=== PATIENT | male | born 1960 | race Caucasian/White ===

== ENCOUNTER 2022-05-28 06:09 | Inpatient (IN) ==
[2022-05-28] MEDS ORDERED: FUROSEMIDE 40 MG/4 ML VIAL IV ONE ×2 (07:02→16:46)
[2022-05-28 07:08] LABS: Basophils # (auto) 0.03 K/uL (0-0.2); Basophils % (auto) 0.4 %; Eosinophils # (auto) 0.21 K/uL (0-0.50); Eosinophils % (auto) 2.7 %; Hematocrit (blood only) 46.1 % (40.1-51.0); Hemoglobin 14.4 g/dl (14.0-18.0); Immature Granulocytes # (auto) 0.01 K/uL (0.00-0.02); Immature Granulocytes % (auto) 0.1 %; Lymphocytes # (auto) 1.04 K/uL (1.2-3.4); Lymphocytes % (auto) 13.1 %; Mean Corpuscular Hemoglobin 27.7 pg (25.0-34.0); Mean Corpuscular Hgb Conc 31.2 g/dL (32.0-36.0); Mean Corpuscular Volume 88.8 fL (80.0-100.0); Mean Platelet Volume 10.3 fL (9.4-12.4); Monocytes # (auto) 0.65 K/uL (0.24-0.82); Monocytes % (auto) 8.2 %; Neutrophils # (auto) 5.98 K/uL (1.4-6.5); Neutrophils % (auto) 75.5 %; Platelet Count 210 K/uL (130-400); RDW Coefficient of Variation 14.6 % (11.5-14.5); RDW Standard Deviation 47.2 fL (36.4-46.3); Red Blood Count 5.19 M/uL (4.63-6.08); White Blood Count 7.92 K/ul (4.8-10.8)
--- NOTE | 2022-05-28 07:27 | XRay Report ---
XR chest 1V portable HISTORY: 61 years-old Male Dyspnea acute shortness of breath COMPARISON: Chest radiograph 09/20/2008 TECHNIQUE: Portable AP view of the chest FINDINGS: Cardiac silhouette is enlarged. Pulmonary vascular congestion with reticular interstitial coarsening. No pneumothorax. Small pleural effusions with mild bibasilar consolidation. The bones appear grossly intact. IMPRESSION: 1. Cardiomegaly with pulmonary edema. 2. Small pleural effusions with mild bibasilar consolidation. ACT 112: Negative or not required by law. The above report was generated using voice recognition software. It may contain grammatical, syntax o r spelling errors. Electronically signed by: Tony Lisa M.D. 05/28/2022 7:26 AM
[2022-05-28 07:28] LABS: INR 1.1 (0.9-1.1); Partial Thromboplastin Time 26.6 Seconds (21.0-31.0); Prothrombin Time 11.3 Seconds (9.0-12.0)
[2022-05-28 07:33] LABS: Base Excess VBG 9.4 mEq/L; HCO3 VBG 36 mmol/L; Oxygen Saturation VBG 70.7 %; PCO2 VBG 57 mmHg (38-50); PO2 VBG 41 mmHg; pH VBG 7.41 (7.36-7.41)
[2022-05-28 07:47] LABS: Alanine Aminotransferase 20 U/L (7-52); Albumin Level 3.5 gm/dl (3.4-5.0); Alkaline Phosphatase 71 U/L (34-104); Anion Gap 5 (3-11); Aspartate Aminotransferase 19 U/L (13-39); BUN Creatinine Ratio 15.6 (10-20); Blood Urea Nitrogen 20 mg/dl (6-23); Calcium 8.8 mg/dl (8.5-10.1); Carbon Dioxide 32 mmol/L (21-32); Chloride 103 mmol/L (98-107); Est GFR (African American) 69.5 ml/min; Globulin 3.6 gm/dl (2.5-4.0); Glucose 183 mg/dl (70-99(Fasting)); Magnesium 1.9 mg/dl (1.7-2.4); Potassium 4.3 mmol/L (3.5-5.1); Sodium 140 mmol/L (136-145); Total Protein 7.1 gm/dl (6.0-8.3)
[2022-05-28 07:49] LABS: Troponin I High Sensitivity 18.2 pg/ml (0-20)
[2022-05-28] MEDS ORDERED: hydrALAZINE HCL 20 MG/ML VIAL IV STA (07:59)
--- NOTE | 2022-05-28 07:59 | Emergency Department Note ---
History of Present Illness General Chief complaint: Respiratory Problems Stated complaint: HAVING TROUBLE BREATHING,BOTH LEGS SWELLED Time Seen by Provider: 05/28/22 06:52 History of Present Illness 61-year-old male presents to the ED with a chief complaint of shortness of breath. The patient also reports pedal edema. He states that his progression of shortness of breath and pedal edema has been over the past months. He states that he does not see a doctor regularly and takes no medications. He states th at he does have a history of PE in the past after a surgery but currently is not on any anticoagulation or any other medications other than vitamins. He states that his shortness of breath is worse with exertion. He has also reported some increased falls recently, last fall was Friday. He denies any fevers or cough. Denies any chest pains. No other complaints at this time. Allergies Allergy/AdvReac Type Severity Reaction Status Date / Time No Known Allergies Allergy Mild Verified 05/28/22 09:32 Past Med/Surg History Medical History (Updated 05/28/22 @ 08:02 by Jose Cantrell DO) Pulmonary embolism Social History Smoking Status: Never smoker Feels Safe at Home: Yes Review of Systems A total of 10 systems reviewed and were otherwise negative Physical Exam Vital Signs Vital Signs - 24 hr 05/28/22 06:15 05/28/22 06:19 05/28/22 06:50 Temperature 36.9 C Temperature Source Temporal Artery Scan Pulse Rate 113 H Pulse Rate from SpO2 Sensor Respiratory Rate 20 Respiratory Effort / Characteristics Non-Labored Spontaneous Labored Respiratory Depth Normal Deep Blood Pressure 202/109 H Blood Pressure Mean 140 Pulse Oximetry 87 L 86 L Oxygen Delivery Method Room Air Room Air Oxygen Flow Rate 0 Sepsis Recent Fever Within 48 Hours No Sepsis New/Unexplained Change in Mental Status N/A Sepsis Action Taken by Nursing No Action Required Oxygen Flow Rate - Titration 2 Pulse Oximetry Post Tiitration 96 05/28/22 06:40 05/28/22 06:47 05/28/22 06:47 Temperature Temperature Source Pulse Rate 113 H 108 H Pulse Rate from SpO2 Sensor 113 H 109 H Respiratory Rate 38 H 35 H Respiratory Effort / Characteristics Respiratory Depth Blood Pressure 210/113 H Blood Pressure Mean 145 Pulse Oximetry 89 L 95 Oxygen Delivery Method Oxygen Flow Rate Sepsis Recent Fever Within 48 Hours Sepsis New/Unexplained Change in Mental Status Sepsis Action Taken by Nursing Oxygen Flow Rate - Titration Pulse Oximetry Post Tiitration 05/28/22 07:00 05/28/22 07:25 05/28/22 07:25 Temperature Temperature Source Pulse Rate 108 H 107 H Pulse Rate from SpO2 Sensor 108 H 107 H Respiratory Rate 27 H 28 H Respiratory Effort / Characteristics Respiratory Depth Blood Pressure 194/126 H Blood Pressure Mean 148 Pulse Oximetry 96 94 Oxygen Delivery Method Nasal Cannula Oxygen Flow Rate 3 Sepsis Recent Fever Within 48 Hours Sepsis New/Unexplained Change in Mental Status Sepsis Action Taken by Nursing Oxygen Flow Rate - Titration Pulse Oximetry Post Tiitration 05/28/22 07:34 05/28/22 08:00 05/28/22 08:00 Temperature Temperature Source Pulse Rate 114 H 103 H Pulse Rate from SpO2 Sensor 103 H Respiratory Rate 39 H 32 H Respiratory Effort / Characteristics Respiratory Depth Blood Pressure 216/131 H Blood Pressure Mean 159 Pulse Oximetry 95 Oxygen Delivery Method Oxygen Flow Rate Sepsis Recent Fever Within 48 Hours Sepsis New/Unexplained Change in Mental Status Sepsis Action Taken by Nursing Oxygen Flow Rate - Titration Pulse Oximetry Post Tiitration 05/28/22 08:38 05/28/22 08:39 05/28/22 08:39 Temperature Temperature Source Pulse Rate 106 H 106 H Pulse Rate from SpO2 Sensor 106 H 106 H Respiratory Rate 42 H 35 H Respiratory Effort / Characteristics Respiratory Depth Blood Pressure 197/113 H Blood Pressure Mean 141 Pulse Oximetry 95 96 Oxygen Delivery Method Oxygen Flow Rate Sepsis Recent Fever Within 48 Hours Sepsis New/Unexplained Change in Mental Status Sepsis Action Taken by Nursing Oxygen Flow Rate - Titration Pulse Oximetry Post Tiitration 05/28/22 08:59 05/28/22 09:00 Temperature Temperature Source Pulse Rate 106 H Pulse Rate from SpO2 Sensor 106 H Respiratory Rate 33 H Respiratory Effort / Characteristics Respiratory Depth Blood Pressure 189/109 H Blood Pressure Mean 135 Pulse Oximetry 92 Oxygen Delivery Method Oxygen Flow Rate Sepsis Recent Fever Within 48 Hours Sepsis New/Unexplained Change in Mental Status Sepsis Action Taken by Nursing Oxygen Flow Rate - Titration Pulse Oximetry Post Tiitration CONSTITUTIONAL/VITAL SIGNS: Reviewed / noted above. GENERAL: Non-toxic in appearance. INTEGUMENTARY: Warm, dry, and [place]. HEAD: Normocephalic. EYES: without scleral icterus or trauma. ENT/OROPHARYNX: clear and moist. LYMPHADENOPATHY/NECK: Is supple without lymphadenopathy or meningismus. RESPIRATORY: Clear to auscultation bilaterally with some basilar crackles. No increased work of breathing. CARDIOVASCULAR: Regular rate and rhythm. GI/ABDOMEN: Soft and nontender. No organomegaly or pulsatile mass. EXTREMITIES: Warm and well perfused. Significant pedal edema bilaterally. BACK: No CVA tenderness. NEUROLOGICAL: Intact without focal deficits. PSYCHIATRIC: normal affect. MUSCULOSKELETAL: Normally developed with good muscle tone. TRIAGE NURSING DOCUMENTATION REVIEWED. Course Administered Medications Discontinued Medications Furosemide (Furosemide 40 Mg/4 Ml Vial) 40 mg IV ONE ONE Stop: 05/28/22 07:03 Last Admin: 05/28/22 07:13 Dose: 40 mg Documented By: HS Hydralazine HCl (Hydralazine Hcl 20 Mg/Ml Vial) 10 mg IV NOW STA Stop: 05/28/22 08:00 Last Admin: 05/28/22 08:20 Dose: 10 mg Documented By: HS Ioversol (Optiray 320 125ml) 120 ml IV ONCE ONE Stop: 05/28/22 08:31 Last Admin: 05/28/22 08:30 Dose: 120 ml Documented By: MAYCOL Medical Decision Making Differential Diagnosis The differential was considered includes acute myocardial infarction, acute coronary syndrome, myocarditis, pericarditis, pericardial effusions /tamponad, esophageal perforation, pulmonary embolism, pneumonia, pneumothorax, cardiomyo yefri, congestive heart, anemia , COPD/asthma exacerbation. Medical Records Attestation: I reviewed the patient's medical records. Home Medications Current Medication List: was personally reviewed by me Laboratory Data Attestation: I reviewed the patient's lab results. Result diagrams: 05/28/22 06:45 05/28/22 06:45 Lab Results 05/28/22 05/28/22 05/28/22 Range/Units 06:45 06:45 06:45 WBC 7.92 (4.8-10.8) K/ul RBC 5.19 (4.63-6.08) M/uL Hgb 14.4 (14.0-18.0) g/dl Hct 46.1 (40.1-51.0) % MCV 88.8 (80.0-100.0) fL MCH 27.7 (25.0-34.0) pg MCHC 31.2 L (32.0-36.0) g/dL RDW Std Deviation 47.2 H (36.4-46.3) fL RDW Coeff of [place] 14.6 H (11.5-14.5) % Plt Count 210 (130-400) K/uL MPV 10.3 (9.4-12.4) fL Immature Gran % (Auto) 0.1 % Neut % (Auto) 75.5 % Lymph % (Auto) 13.1 % [place] % (Auto) 8.2 % Eos % (Auto) 2.7 % Baso % (Auto) 0.4 % Neut # (Auto) 5.98 (1.4-6.5) K/uL Lymph # (Auto) 1.04 L (1.2-3.4) K/uL [place] # (Auto) 0.65 (0.24-0.82) K/uL Eos # (Auto) 0.21 (0-0.50) K/uL Baso # (Auto) 0.03 (0-0.2) K/uL Immature Gran # (Auto) 0.01 (0.00-0.02) K/uL PT (9.0-12.0) Seconds INR (0.9-1.1) APTT (21.0-31.0) Seconds PTT Ratio VBG pH (7.36-7.41) VBG pCO2 (38-50) mmHg VBG pO2 mmHg VBG HCO3 mmol/L VBG O2 Saturation % VBG Base Excess mEq/L Sodium 140 (136-145) mmol/L Potassium 4.3 (3.5-5.1) mmol/L Chloride 103 (98-107) mmol/L Carbon Dioxide 32 (21-32) mmol/L Anion Gap 5 (3-11) BUN 20 (6-23) mg/dl Creatinine 1.28 (0.6-1.4) mg/dl Est Cr Clr Drug Dosing Not Reportable Est GFR ( Amer) 69.5 ml/min Est GFR (Non-Af Amer) 60.0 ml/min BUN/Creatinine Ratio 15.6 (10-20) Glucose 183 H (70-99(Fasting)) mg/dl Calcium 8.8 (8.5-10.1) mg/dl Magnesium 1.9 (1.7-2.4) mg/dl Total Bilirubin 1.0 (0.2-1.0) mg/dl AST 19 (13-39) U/L ALT 20 (7-52) U/L Alkaline Phosphatase 71 (34-104) U/L Troponin I High Sens 18.2 (0-20) pg/ml B-Natriuretic Peptide 376 H (0-100) pg/ml Total Protein 7.1 (6.0-8.3) gm/dl Albumin 3.5 (3.4-5.0) gm/dl Globulin 3.6 (2.5-4.0) gm/dl Albumin/Globulin Ratio 1.0 (0.9-2) SARS-CoV-2, RNA, NAAT (NEGATIVE) 05/28/22 05/28/22 05/28/22 Range/Units 06:45 07:10 07:10 WBC (4.8-10.8) K/ul RBC (4.63-6.08) M/uL Hgb (14.0-18.0) g/dl Hct (40.1-51.0) % MCV (80.0-100.0) fL MCH (25.0-34.0) pg MCHC (32.0-36.0) g/dL RDW Std Deviation (36.4-46.3) fL RDW Coeff of Golden (11.5-14.5) % Plt Count (130-400) K/uL MPV (9.4-12.4) fL Immature Gran % (Auto) % Neut % (Auto) % Lymph % (Auto) % [place] % (Auto) % Eos % (Auto) % Baso % (Auto) % Neut # (Auto) (1.4-6.5) K/uL Lymph # (Auto) (1.2-3.4) K/uL [place] # (Auto) (0.24-0.82) K/uL Eos # (Auto) (0-0.50) K/uL Baso # (Auto) (0-0.2) K/uL Immature Gran # (Auto) (0.00-0.02) K/uL PT 11.3 (9.0-12.0) Seconds INR 1.1 (0.9-1.1) APTT 26.6 (21.0-31.0) Seconds PTT Ratio 1.0 VBG pH 7.41 (7.36-7.41) VBG pCO2 57 H (38-50) mmHg VBG pO2 41 mmHg VBG HCO3 36 mmol/L VBG O2 Saturation 70.7 % VBG Base Excess 9.4 mEq/L Sodium (136-145) mmol/L Potassium (3.5-5.1) mmol/L Chloride (98-107) mmol/L Carbon Dioxide (21-32) mmol/L Anion Gap (3-11) BUN (6-23) mg/dl Creatinine (0.6-1.4) mg/dl Est Cr Clr Drug Dosing Est GFR ( Amer) ml/min Est GFR (Non-Af Amer) ml/min BUN/Creatinine Ratio (10-20) Glucose (70-99(Fasting)) mg/dl Calcium (8.5-10.1) mg/dl Magnesium (1.7-2.4) mg/dl Total Bilirubin (0.2-1.0) mg/dl AST (13-39) U/L ALT (7-52) U/L Alkaline Phosphatase (34-104) U/L Troponin I High Sens (0-20) pg/ml B-Natriuretic Peptide (0-100) pg/ml Total Protein (6.0-8.3) gm/dl Albumin (3.4-5.0) gm/dl Globulin (2.5-4.0) gm/dl Albumin/Globulin Ratio (0.9-2) SARS-CoV-2, RNA, NAAT NEGATIVE (NEGATIVE) Imaging Data Radiologist's Impression: Chest X-Ray 05/28/22 06:55 XR chest 1V portable HISTORY: 61 years-old Male Dyspnea acute shortness of breath COMPARISON: Chest radiograph 09/20/2008 TECHNIQUE: Portable AP view of the chest FINDINGS: Cardiac silhouette is enlarged. Pulmonary vascular congestion with reticular interstitial coarsening. No pneumothorax. Small pleural effusions with mild bibasilar consolidation. The bones appear grossly intact. IMPRESSION: 1. Cardiomegaly with pulmonary edema. 2. Small pleural effusions with mild bibasilar consolidation. ACT 112: Negative or not required by law. The above report was generated using voice recognition software. It may contain grammatical, syntax or spelling errors. Electronically signed by: Tony Lisa M.D. 05/28/2022 7:26 AM Chest CTA 05/28/22 07:50 CT angio chest PE protocol CLINICAL HISTORY: sob TECHNIQUE: Multidetector row helical CT of the chest was performed with angiographic protocol. Coronal and sagittal reformations were obtained. Coronal and sagittal MIPS were obtained from the axial data set and were submitted for review. Automated dose lowering techniques and/or adjustment according to patient size were utilized for this exam. CT DOSE: 1035.99 mGy.cm Comparison: Comparison is made to CT chest 09/14/2008 and chest radiograph dated 05/28/2022 FINDINGS: Lungs and pleura: Moderate bilateral pleural effusions are seen with associated atelectasis. No suspicious pulmonary nodules are seen. Heart and pericardium: There is cardiomegaly without evidence of pericardial ef fusion. Vessels: No evidence of pulmonary embolism. The pulmonary artery measures 34 mm in diameter. Mediastinum and john: Unremarkable. Chest wall and lower neck: Unremarkable. Abdomen: Unremarkable. Bones: Unremarkable. IMPRESSION: No evidence of pulmonary embolism. Moderate bilateral pleural effusions are seen with associated atelectasis. ACT 112: Negative or not required by law. Electronically signed by: Tony Wagner M.D. 05/28/2022 8:54 AM ECG Data Attestation: I personally reviewed and interpreted this ECG as follows: Additional Comments: Twelve-lead EKG: Per my interpretation shows a normal sinus rhythm rate of 110. No ST elevation. No PVCs. Normal QTC. Low voltage. MDM Narrative 61-year-old male presents with progressive shortness of breath and pedal edema that has been ongoing for the past months, steadily worsening with worsening symptoms with exertion. The patient had a pulse ox of 86% on arrival. Does not use home oxygen. Blood pressure was 202/109. Heart rate was 113. Exam reveals some basilar crackles and otherwise significant pedal edema in the legs. The patient CBC and chemistry panel was unremarkable. BNP was 376. VBG shows normal pH with a PCO2 of 57. COVID test was negative. EKG showed a sinus tach at a rate of 110. Chest x-ray suggest some pulmonary edema and congestive heart failure. CT scan of the chest did not show any evidence of PE. There is moderate bilateral pleural effusions. The patient was treated with IV Lasix initially on arrival as well as given some IV hydralazine. He was placed on oxygen to maintain saturations in the high 90s. He was on 2 L. Blood pressure did improve some. He did diurese quite a bit. He will be seen by the hospitalist. Impression & Plan Congestive heart failure, Pulmonary edema, Hypoxia, Hypertension Discharge Plan Visit Data Chief Complaint: Respiratory Problems Stated Complaint: HAVING TROUBLE BREATHING,BOTH LEGS SWELLED ED Provider: Jose Cantrell Discharge Problem: Congestive heart failure, Pulmonary edema, Hypoxia, Hypertension Patient Disposition: Being Evaluated by Hospitalist Forms Stand Alone Forms: [facility] Referrals Referrals: PCP,NO [Primary Care Provider] -
[2022-05-28] MEDS ORDERED: OPTIRAY 320 125ml IV ONE (08:30)
--- NOTE | 2022-05-28 08:56 | CT Scan Report ---
CT angio chest PE protocol CLINICAL HISTORY: sob TECHNIQUE: Multidetector row helical CT of the chest was performed with angiographic protocol. Roberts l and sagittal reformations were obtained. Coronal and sagittal MIPS were obtained from the axial betty a set and were submitted for review. Automated dose lowering techniques and/or adjustment according to patient size were utilized for this exam. CT DOSE: 1035.99 mGy.cm Comparison: Comparison is made to CT chest 09/14/2008 and chest radiograph dated 05/28/2022 FINDINGS: Lungs and pleura: Moderate bilateral pleural effusions are seen with associated atelectasis. No suspi cious pulmonary nodules are seen. Heart and pericardium: There is cardiomegaly without evidence of pericardial effusion. Vessels: No evidence of pulmonary embolism. The pulmonary artery measures 34 mm in diameter. Mediastinum and john: Unremarkable. Chest wall and lower neck: Unremarkable. Abdomen: Unremarkable. Bones: Unremarkable. IMPRESSION: No evidence of pulmonary embolism. Moderate bilateral pleural effusions are seen with associated atel ectasis. ACT 112: Negative or not required by law. Electronically signed by: Tony Wagner M.D. 05/28/2022 8:54 AM
--- NOTE | 2022-05-28 09:36 | History & Physical Report ---
Date of Service May 28, 2022 Assessment & Plan (1) Acute respiratory failure with hypoxia: (2) Congestive heart failure: (3) Hypertensive urgency: (4) Morbid obesity: (5) Hyperglycemia: Plan This is a 61 yr old M who has a significant PMH of PE previously on warfarin, hx of volvulus and morbid obesity who presents to ED 2/2 to SOB x few months. Acute hypoxic respiratory failure Acute decompensated heart failure Hypertensive urgency - likely in setting of uncontrolled hypertension Admit to PCU received 40mg IV lasix thus far - negative 1.5L thus far in ED continue lasix 40mg IV lasix daily consult cardiology obtain echocardiogram a1c, lipid panel, tsh/t4 will initiate daily anti hypertensive treatment with losartan 50mg daily, first dose now previously pt was on metoprolol tartrate, given tachycardia consider re introducing after acute chf improved cycle trops for completeness Hyperglycemia awaiting a1c admitting bsg > [address] on diabetic diet for now Morbid obesity consider lifestyle and diet modifications consult warehouse order picker for assistance Hx of PE/DVT ppx: SQ Lovenox Dispo: PCU PCP: none, previously followed Dr. Hurst FULL CODE Pt was seen and examined in collaboration with Dr. Arenas, please see addendum History of Present Illness Chief Complaint: SOB x few months. Primary Care Provider: NO PCP This is a 61 yr old M who has a significant PMH of PE previously on warfarin, hx of volvulus and morbid obesity who presents to ED 2/2 to SOB x few months. Of note he previously followed with [facility] PCP Dr. Hurst; however, has not followed up since 2010. He has been having worsening STARR that has been progressive over the last several months. He complains of worsening leg swelling over the last few months. He has been using OTC meds to try to help, including Aleve/ibuprofen. This didn't seem to help. He generally feels his swelling is all over including hands and abdomen. He occasionally would get a short lasting pain on left side of chest when he would exert himself. It would only last seconds and resolve on own. Nothing made better/worse. He also had occasional palpitations and feeling of, "heart racing." He denies any f/c/s, dizziness, lightheaded, syncope, URI sx, cough, hemoptysis, n/v/d, or abdominal pain. He has fallen 3 times in this past year. Last fall was 3 days ago. All 3 times he lost his balance. He denies LOC or hitting his head. He feel his legs are generally weak from the swelling. He has no known injury but did have a buttock bruise. He did not seek any medical care after falls. He states, "I'm stubborn and previously tried to heal myself." He denies hx of HTN, HLD or DM. He has hx of PE and was on warfarin. He has hx of volvulus s/p colectomy in 2008. Allergies Allergy/AdvReac Type Severity Reaction Status Date / Time small pox vaccine Allergy Severe edema Uncoded 05/28/22 10:06 Home Medications Medication Instructions Recorded Confirmed Type ascorbic acid (vitamin C) 500 mg 500 mg PO DAILY 05/28/22 05/28/22 History tablet (Vitamin C) aspirin 81 mg chewable tablet 81 mg PO DAILY 05/28/22 05/28/22 History multivitamin 1 tab PO DAILY 05/28/22 05/28/22 History Past Med/Surg History Medical History (Updated 05/28/22 @ 10:10 by Amy Trevino PA-C) Pulmonary embolism Volvulus Surgical History (Updated 05/28/22 @ 10:04 by Amy Trevino PA-C) Hx of appendectomy same time as colon resection Hx of exploratory laparotomy s/p colectomy 2008 Family History (Updated 05/28/22 @ 10:04 by Amy Trevino PA-C) Father Hx of CABG Brother Diabetes Uncle Diabetes Social History (Updated 05/28/22 @ 10:07 by Amy Trevino PA-C) Smoking Status: Never smoker Hx Alcohol Use: No Hx Substance Use: No Preferred Language: French Communication Ability: Effective marital status: Single Current Living Situation: Significant Other current occupational status: employed 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 Arenas addendum for physical exam findings Results & Data Results & Data ([facility]) Vital Signs (Past 12 Hours) Vital Signs Temp Pulse Resp BP Pulse Ox O2 Del Method O2 Flow Rate 05/28/22 09:00 189/109 H 05/28/22 08:59 106 H 33 H 92 05/28/22 08:39 106 H 35 H 96 05/28/22 08:39 197/113 H 05/28/22 08:38 106 H 42 H 95 05/28/22 08:00 103 H 32 H 95 05/28/22 08:00 216/131 H 05/28/22 07:34 114 H 39 H 05/28/22 07:25 107 H 28 H 94 05/28/22 07:25 194/126 H 05/28/22 07:00 108 H 27 H 96 Nasal Cannula 3 05/28/22 06:47 108 H 35 H 95 05/28/22 06:47 210/113 H 05/28/22 06:40 113 H 38 H 89 L 05/28/22 06:19 86 L Room Air 0 05/28/22 06:15 36.9 C 113 H 20 202/109 H 87 L Room Air Diagnostic Findings Chest X-Ray 05/28/22 06:55 XR chest 1V portable HISTORY: 61 years-old Male Dyspnea acute shortness of breath COMPARISON: Chest radiograph 09/20/2008 TECHNIQUE: Portable AP view of the chest FINDINGS: Cardiac silhouette is enlarged. Pulmonary vascular congestion with reticular interstitial coarsening. No pneumothorax. Small pleural effusions with mild bibasilar consolidation. The bones appear grossly intact. IMPRESSION: 1. Cardiomegaly with pulmonary edema. 2. Small pleural effusions with mild bibasilar consolidation. ACT 112: Negative or not required by law. The above report was generated using voice recognition software. It may contain grammatical, syntax or spelling errors. Electronically signed by: Tony Lisa M.D. 05/28/2022 7:26 AM Chest CTA 05/28/22 07:50 CT angio chest PE protocol CLINICAL HISTORY: sob TECHNIQUE: Multidetector row helical CT of the chest was performed with angiographic protocol. Coronal and sagittal reformations were obtained. Coronal and sagittal MIPS were obtained from the axial data set and were submitted for review. Automated dose lowering techniques and/or adjustment according to patient size were utilized for this exam. CT DOSE: 1035.99 mGy.cm Comparison: Comparison is made to CT chest 09/14/2008 and chest radiograph dated 05/28/2022 FINDINGS: Lungs and pleura: Moderate bilateral pleural effusions are seen with associated atelectasis. No suspicious pulmonary nodules are seen. Heart and pericardium: There is cardiomegaly without evidence of pericardial effusion. Vessels: No evidence of pulmonary embolism. The pulmonary artery measures 34 mm in diameter. Mediastinum and john: Unremarkable. Chest wall and lower neck: Unremarkable. Abdomen: Unremarkable. Bones: Unremarkable. IMPRESSION: No evidence of pulmonary embolism. Moderate bilateral pleural effusions are seen with associated atelectasis. ACT 112: Negative or not required by law. Electronically signed by: Tony Wagner M.D. 05/28/2022 8:54 AM Medications Administered Medication List Discontinued Medications Furosemide (Furosemide 40 Mg/4 Ml Vial) 40 mg IV ONE ONE Stop: 05/28/22 07:03 Last Admin: 05/28/22 07:13 Dose: 40 mg Documented By: HS Hydralazine HCl (Hydralazine Hcl 20 Mg/Ml Vial) 10 mg IV NOW STA Stop: 05/28/22 08:00 Last Admin: 05/28/22 08:20 Dose: 10 mg Documented By: HS Ioversol (Optiray 320 125ml) 120 ml IV ONCE ONE Stop: 05/28/22 08:31 Last Admin: 05/28/22 08:30 Dose: 120 ml Documented By: MAYCOL ECG Rate (beats per minute): 110 Rhythm: sinus tachycardia Additional Comments: borderline q waves noted in inferior leads COVID-19 Results Results COVID-19 Adm Lab Results: RBC 5.19 M/uL (4.63-6.08) 05/28/22 WBC 7.92 K/ul (4.8-10.8) 05/28/22 Hgb 14.4 g/dl (14.0-18.0) 05/28/22 Hct 46.1 % (40.1-51.0) 05/28/22 Plt Count 210 K/uL (130-400) 05/28/22 Neutrophils (%) (Auto) 75.5 % 05/28/22 Lymphocytes (%) (Auto) 13.1 % 05/28/22 Monocytes # (Auto) 0.65 K/uL (0.24-0.82) 05/28/22 Eosinophils # (Auto) 0.21 K/uL (0-0.50) 05/28/22 Immature Granulocyte % (Auto) 0.1 % 05/28/22 Neutrophils # (Auto) 5.98 K/uL (1.4-6.5) 05/28/22 Lymphocytes # (Auto) 1.04 K/uL (1.2-3.4) L 05/28/22 Monocytes # (Auto) 0.65 K/uL (0.24-0.82) 05/28/22 Eosinophils # (Auto) 0.21 K/uL (0-0.50) 05/28/22 Basophils # (Auto) 0.03 K/uL (0-0.2) 05/28/22 Immature Granulocyte # (Auto) 0.01 K/uL (0.00-0.02) 2 Na 140 mmol/L (136-145) 05/28/22 K 4.3 mmol/L (3.5-5.1) 05/28/22 Cl 103 mmol/L (98-107) 05/28/22 CO2 32 mmol/L (21-32) 05/28/22 Anion Gap 5 (3-11) 05/28/22 BUN 20 mg/dl (6-23) 05/28/22 Creatinine 1.28 mg/dl (0.6-1.4) 05/28/22 BUN/Creatinine Ratio 15.6 (10-20) 05/28/22 Glucose Level 183 mg/dl (70-99(Fasting)) H 05/28/22 Ca 8.8 mg/dl (8.5-10.1) 05/28/22 Total Bilirubin 1.0 mg/dl (0.2-1.0) 05/28/22 AST/SGOT 19 U/L (13-39) 05/28/22 ALT/SGPT 20 U/L (7-52) 05/28/22 Alkaline Phosphatase 71 U/L (34-104) 05/28/22 Total Protein 7.1 gm/dl (6.0-8.3) 05/28/22 Albumin 3.5 gm/dl (3.4-5.0) 05/28/22 Globulin 3.6 gm/dl (2.5-4.0) 05/28/22 Albumin/Globulin Ratio 1.0 (0.9-2) 05/28/22 PTT 26.6 Seconds (21.0-31.0) 05/28/22 INR 1.1 (0.9-1.1) 05/28/22 SARS-CoV-2, RNA, NAAT NEGATIVE (NEGATIVE) 05/28/22 Chest X-Ray 05/28/22 Code Status & VTE Plan Code Status FULL CODE VTE Prophylaxis Plan VTE Prophylaxis will be ordered: Yes Supervising Physician Co-Signing Physician Notes Pt is a 61 y/o M with hx small bowel obstruction s/p resection (2007), provoked PE (2007), HTN, HLD admitted for worsening SOB with Legs edema. PE: Obese pt, NAD, NC in place Card: normal S1/S2, no murmur Lungs: Good air entry b/l with lower lobe crackles Abd: obese abd, midline old surgical scar, low abdominal wall pitting edema, NT MSK: b/l LE severe pitting edema up to the thighs with skin changes Psych: AAOx3, normal affect A/P: Acute HF with hypoxia: -CTA chest: no PE but b/l pleural effusion -EKG: sinus tachy, decreased amplitude of the R wave, no pathological Q wave -initial Trop normal but will trend -pt is s/p Lasix 40mg IV -will obtain echo -admit tele -pt is already having good urine output -due to pts weight and severity of the edema will continue Lasix 40mg IV daily for now - daily weights and strict I/O -cards consult HTN: -pt was on metoprolol ----- have not taken it for >10 years -will start the pt on losartan 50mg daily and continue Lasix 40mg IV ---- likely add metoprolol on discharge -admit to tele -will get Lipid and A1C with AM labs Agree with A/P by Amy Trevino PA-C
[2022-05-28] MEDS ORDERED: LOSARTAN POTASSIUM 50 MG TAB PO STA (10:16)
[2022-05-28 10:35] LABS: Thyroid Stimulating Hormone 5.054 uIu/ml (0.300-4.500)
[2022-05-28 11:08] LABS: T4 Free Thyroxine 1.15 ng/dl (0.61-1.60)
[2022-05-28 11:19] LABS: Estimated Average Glucose 157 mg/dl; Hemoglobin A1C 7.1 % (4.5-5.6)
[2022-05-28] MEDS ORDERED: ONDANSETRON INJ 2 MG/ML 2 ML VIAL IV PRN (12:09)
[2022-05-28] MEDS ORDERED: POLYETHYLENE (MIRALAX) 17 GM PACK PO PRN (12:09)
[2022-05-28] MEDS ORDERED: ACETAMINOPHEN 325 MG TAB PO PRN (12:09)
[2022-05-28] MEDS ORDERED: MAGNESIUM HYDROXIDE SUSP 30 ML UDC PO PRN (12:09)
[2022-05-28] MEDS ORDERED: ALUMINUM/MAGNESIUM SUSP 30 ML UDC PO PRN (12:09)
[2022-05-28] MEDS ORDERED: GLUCAGON FOR INJ 1 MG VIAL SQ PRN (12:29)
[2022-05-28] MEDS ORDERED: DEXTROSE 50% 50 ML SYRINGE IV PRN (12:29)
[2022-05-28] MEDS ORDERED: GLUCOSE 40% GEL 15 GM TUBE PO PRN (12:29)
[2022-05-28] MEDS ORDERED: CARBOHYDRATES FOR HYPOGLYCEMIA PO PRN (12:29)
[2022-05-28] MEDS ORDERED: GLUCOSE 10 TAB/TUBE PO PRN (12:29)
--- NOTE | 2022-05-28 15:55 | Cardiology Consultation ---
Date of Consultation May 28, 2022 Assessment & Plan (1) Heart failure, diastolic, with acute decompensation: (2) Hypertensive urgency: (3) Elevated troponin I level: (4) Suspected sleep apnea: (5) Dyslipidemia, goal LDL below 70: (6) Family history of ischemic heart disease: Plan Acute decompensated diastolic congestive heart failure signs and symptoms, with hypoxia, and associated bilateral pleural effusions. - Agree with IV furosemide, 40 mg daily - Add spironolactone 12.5 mg daily - Restrict sodium to 1500 mg/day - Restrict fluids to 2000 mL/day - Monitor I's and O's, weights daily on the same standing scale, metabolic panels daily Hypertension, uncontrolled, hypertensive urgency. - IV furosemide - Losartan 50 mg/day added already - Add spironolactone as above, and carvedilol 3.125 mg twice per day. Elevated high-sensitivity troponin I. - Coronary atherosclerosis noted on the CT scan of the chest this admission. - EKG without acute changes. - Symptoms most consistent with acute decompensated diastolic heart failure. - Resting echocardiography reveals preserved LV systolic function without wall motion abnormality. - Further evaluation of the suspected obstructive coronary artery disease to transpire once compensated. Suspected sleep apnea/nocturnal hypoxemia. - Further evaluation and treatment discussed Dyslipidemia. - With the observed coronary atherosclerosis as well as the new onset type II diabetes mellitus, recommend targeting an optimal LDL cholesterol goal of less than 70 mg/deciliter. - Lipids requested. Initiation of statin therapy discussed. Further recommendations pending the above, evaluation by Dr. Coker, and patient's ongoing hospitalization. Supervising Physician Co-Signing Physician Notes Supervising Physician Attestation: I have personally performed a history and physical examination on the patient. I agree with the physician assistant analyst's findings and plan as documented with the following additions. Subjective: Patient describes worsening shortness of breath since about December of this year. Believes the last time a medical provider took his blood pressure was in 2008. Exam: At the time of my assessment, ongoing hypertension noted, repeat blood pressure 183/111 Cardiovascular difficult to hear heart sounds due to body habitus, 2-3+ bilateral lower extremity edema Lungs: Decreased breath sounds bilaterally at the bases Data: CT of the chest, left greater than right bilateral pleural effusions EKG 05/28/2022 sinus tachycardia 110 bpm, possible age-indeterminate inferior infarct Transthoracic echocardiogram. Study technically limited due to poor acoustic windows, patient characteristics but adequate for the evaluation of the referral indication There is mild concentric left-ventricular hypertrophy, LVEF 55 to 60%, moderate aortic valve calcification observed. Grade 2 diastolic dysfunction -Consider repeat study when patient better compensated from volume status standpoint for further ablation of the aortic valve, no significant aortic valve gradient detected on Doppler however 2D morphology suggest reduction aortic valve excursion Assessment and Plan: Acute decompensated diastolic heart failure Uncontrolled hypertension, likely chronic -Medication plan as documented above DVT prophylaxis: Lovenox 40 mg subcu every 24 hours Arcadio Coker, History of Present Illness Reason for Consultation: Acute CHF, new onset, uncontrolled hypertension Requesting Physician: Uriel Attending Physician: Dagoberto History of Present Illness Mr. Todd Newsome is a 61-year-old male who presented to the [facility] emergency room in the morning of May 28, 2022 due to complaints of a nonproductive cough, progressive orthopnea, exertional dyspnea, abdominal bloating, and lower extremity peripheral edema over the last few months. Occasionally feeling her heart race without rhyme or reason. No chest pain or discomfort. Blood pressure on presentation was 202/109 and has remained elevated throughout. In the emergency room the patient was evaluated by Dr. Cantrell. Patient given 40 mg of IV Lasix and 10 mg IV hydralazine with good urine output, slight improvement in dyspnea, and slight improvement in abdominal tightness. Chest x-ray revealed cardiomegaly with pulmonary edema, small pleural effusions with mild bibasilar consolidation. CT scan of the chest showed no evidence of pulmonary embolism, revealing moderate bilateral pleural effusions with associated atelectasis. Coronary atherosclerosis noted in the left coronary system. EKG revealed sinus tachycardia at 110 bpm with low voltage QRS, possible old inferior infarct, poor R wave progression. High- sensitivity troponin was initially normal at 18.2 pg/mL, rising to 50.9 pg/mL. Patient has not seen a provider in greater than 10 years. Notes hoping the body would fix itself. Prior to arrival medications include aspirin, as needed acetaminophen/ibuprofen, vitamin C, multivitamin. Past Medical and Surgical History: Hypertension Dyslipidemia Obesity History of volvulus, small bowel obstruction s/p resection Postoperative PE, anemia requiring transfusion, significant neutropenia, bacteremia Status post incidental appendectomy Status post bowel resection Family History: Father with premature CAD status post CABG x4 in his 40s. Father is present status is unknown. Mother's history is unknown. He notes multiple maternal family members with various cancers. Sister with an PR at 52. Brother and uncle with diabetes mellitus. Social History: Lifelong non-smoker, no tobacco history whatsoever. No alcohol. No illegal drug use. Moved to [facility] from [facility] in 1999. 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 , present at bedside. Complete Review of Systems: Constitutional: + Weight gain. No fevers. No chills. HEENT: Glasses. No amaurosis fugax. No recent visual changes. Pulmonary: History of PE, provoked previously treated with warfarin. Suspected sleep apnea. No history of asthma, emphysema, or COPD. Cardiac: See above. GI/Abd: No dysphagia No nausea, vomiting, or diarrhea. No significant constipation. No melena or hematochezia. No liver or kidney problems. Vascular: Denies history of claudication, AAA, or carotid artery disease. Hematologic: Status post transfusion post resection. Musculoskeletal: Tailbone pain following a prior fall. Arthritic pain. Fell in November backwards, losing his balance. No loss of consciousness. Fell in January, backwards, losing his balance, no loss of consciousness. Last fall Friday, forward, losing balance, no loss of consciousness Neurologic: No history of TIA or CVA. No history of seizure. Skin: Erythema to the lower extremities. No tick bite Male : Nocturia. Endocrine: New onset type 2 diabetes mellitus this admission. No thyroid issues. Complete review of systems is otherwise as stated above, negative, or noncontributory. Allergies Allergy/AdvReac Type Severity Reaction Status Date / Time small pox vaccine Allergy Severe edema Uncoded 05/28/22 10:06 Home Medications Medication Instructions Recorded Confirmed Type ascorbic acid (vitamin C) 500 mg 500 mg PO DAILY 05/28/22 05/28/22 History tablet (Vitamin C) aspirin 81 mg chewable tablet 81 mg PO DAILY 05/28/22 05/28/22 History multivitamin 1 tab PO DAILY 05/28/22 05/28/22 History Patient History Medical History Pulmonary embolism Volvulus Surgical History Hx of appendectomy same time as colon resection Hx of exploratory laparotomy s/p colectomy 2009 Family History Father Hx of CABG Brother Diabetes Uncle Cancer Social History Smoking Status: Former smoker Do You Dip or Chew Tobacco: No; Tobacco Cessation Education Requested by Patient: No Hx Alcohol Use: No Hx Substance Use: No Preferred Language: Monegasque Communication Ability: Effective Spool Cleaner Required: No Beliefs That Will Affect Care: None marital status: Single Current Living Situation: Spouse current occupational status: employed 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 NAD. Elevated BMI HENT: Normocephalic. Atraumatic. Eyes: PER. Conjunctiva pink, sclera clear. Neck: No carotid bruits. No overt JVD. Heart: Regular at 110 bpm. No murmur appreciated. Lungs: Absent breaths sounds, right greater than left. Left basilar rales. No wheeze. Abdomen: +BS. Somewhat firm. Nontender. No masses or organomegaly. Extremities: Hard indurated edema into the thighs. No overt cellulitis. No clubbing. No cyanosis Limited neurological examination is without focal deficits. Pulses: radial=2/4, posterior tibial and dorsalis pedis pulses not appreciated. Results & Data ([facility]) Vital Signs (Past 12 Hours) Vital Signs Temp Pulse Pulse Resp BP BP Pulse Ox 05/28/22 14:00 103 H 35 H 92 05/28/22 14:00 174/106 H 05/28/22 13:30 99 H 26 H 95 05/28/22 13:30 167/94 H 05/28/22 12:30 98 H 20 92 05/28/22 12:30 191/113 H 05/28/22 12:00 97 H 25 H 92 05/28/22 12:00 169/105 H 05/28/22 13:00 05/28/22 13:00 36.4 C L 98 H 30 H 139/110 H 95 05/28/22 12:33 05/28/22 11:30 97 H 37 H 94 05/28/22 11:30 179/108 H 05/28/22 11:00 99 H 37 H 93 05/28/22 11:00 181/108 H 05/28/22 10:30 100 H 38 H 93 05/28/22 10:30 179/106 H 05/28/22 10:13 99 H 26 H 94 05/28/22 10:13 175/106 H 05/28/22 10:02 102 H 26 H 95 05/28/22 10:02 187/107 H 05/28/22 10:00 102 H 27 H 95 05/28/22 10:00 209/132 H 05/28/22 09:30 101 H 29 H 94 05/28/22 09:30 178/108 H 05/28/22 09:00 105 H 34 H 93 05/28/22 09:00 189/109 H 05/28/22 08:59 106 H 33 H 92 05/28/22 08:39 106 H 35 H 96 05/28/22 08:39 197/113 H 05/28/22 08:38 106 H 42 H 95 05/28/22 08:00 103 H 32 H 95 05/28/22 08:00 216/131 H 05/28/22 07:34 114 H 39 H 05/28/22 07:25 107 H 28 H 94 05/28/22 07:25 194/126 H 05/28/22 07:00 108 H 27 H 96 05/28/22 06:47 108 H 35 H 95 05/28/22 06:47 210/113 H 05/28/22 06:40 113 H 38 H 89 L 05/28/22 06:19 86 L 05/28/22 06:15 36.9 C 113 H 20 202/109 H 87 L Laboratory Results Cardiac Enzymes 05/28/22 05/28/22 05/28/22 Range/Units 06:45 06:45 11:13 AST 19 (13-39) U/L Troponin I High Sens 18.2 50.9 H* D (0-20) pg/ml B-Natriuretic Peptide 376 H (0-100) pg/ml Coagulation 05/28/22 05/28/22 Range/Units 06:45 06:45 PT 11.3 (9.0-12.0) Seconds APTT 26.6 (21.0-31.0) Seconds B-Natriuretic Peptide 376 H (0-100) pg/ml CBC 05/28/22 Range/Units 06:45 WBC 7.92 (4.8-10.8) K/ul RBC 5.19 (4.63-6.08) M/uL Hgb 14.4 (14.0-18.0) g/dl Hct 46.1 (40.1-51.0) % Plt Count 210 (130-400) K/uL Neut # (Auto) 5.98 (1.4-6.5) K/uL Lymph # (Auto) 1.04 L (1.2-3.4) K/uL [place] # (Auto) 0.65 (0.24-0.82) K/uL Eos # (Auto) 0.21 (0-0.50) K/uL Baso # (Auto) 0.03 (0-0.2) K/uL Comprehensive Metabolic Panel 05/28/22 Range/Units 06:45 Sodium 140 (136-145) mmol/L Potassium 4.3 (3.5-5.1) mmol/L Chloride 103 (98-107) mmol/L Carbon Dioxide 32 (21-32) mmol/L BUN 20 (6-23) mg/dl Creatinine 1.28 (0.6-1.4) mg/dl Glucose 183 H (70-99(Fasting)) mg/dl Calcium 8.8 (8.5-10.1) mg/dl AST 19 (13-39) U/L ALT 20 (7-52) U/L Alkaline Phosphatase 71 (34-104) U/L Total Protein 7.1 (6.0-8.3) gm/dl Albumin 3.5 (3.4-5.0) gm/dl Intake and Output 05/28/22 05/28/22 05/28/22 06:59 14:59 22:59 Output Total 1300 / 1300 Balance -1300 / -1300 Output: Urine 1300 / 1300 Other: # Unmeasured Voids 2 Weight 145.1 kg Weight [facility] Weight 05/29/22 06:59 Weight 145.1 kg Diagnostic Findings CXR, Chest CT, EKG, and labs reviewed. See EMR May 28, 2022 TTE [facility]ation [facility] Technically limited but adequate for evaluation of the referral indication. Mild concentric LVH. Normal LV wall motion. Ejection fraction 55 to 60%. Aortic valve not well visualized, appearing trileaflet. Moderate focal calcification of the aortic valve. Aortic stenosis is absent. Mild mitral regurgitation. Grade 2 diastolic dysfunction. Consider repeat study when patient is better compensated from a volume standpoint, for further evaluation of aortic valve. No significant aortic valve gradient detected on Doppler, however, 2D morphology suggests reduction in AV excursion.
[2022-05-28] MEDS ORDERED: POTASSIUM CHLORIDE 10 MEQ TABCR PO ONE (16:30)
[2022-05-28] MEDS ORDERED: FUROSEMIDE INJ 20 MG/2 ML VIAL IV ONE (16:45)
[2022-05-28] MEDS: INSULIN ASPART PER UNIT SC SCH ×2 (16:58→21:57)
[2022-05-28] MEDS: carvediloL 3.125 MG TAB PO SCH (21:47)
[2022-05-28] MEDS: ENOXAPARIN INJ 40 MG/0.4 ML SYR SQ SCH (21:48)
[2022-05-29 02:56] LABS: Basophils # (auto) 0.03 K/uL (0-0.2); Basophils % (auto) 0.3 %; Eosinophils # (auto) 0.27 K/uL (0-0.50); Hematocrit (blood only) 45.6 % (40.1-51.0); Hemoglobin 14.1 g/dl (14.0-18.0); Immature Granulocytes # (auto) 0.04 K/uL (0.00-0.02); Immature Granulocytes % (auto) 0.4 %; Lymphocytes # (auto) 1.04 K/uL (1.2-3.4); Lymphocytes % (auto) 11.6 %; Mean Corpuscular Hemoglobin 27.5 pg (25.0-34.0); Mean Corpuscular Hgb Conc 30.9 g/dL (32.0-36.0); Mean Corpuscular Volume 89.1 fL (80.0-100.0); Mean Platelet Volume 9.8 fL (9.4-12.4); Monocytes # (auto) 0.78 K/uL (0.24-0.82); Monocytes % (auto) 8.7 %; Neutrophils # (auto) 6.79 K/uL (1.4-6.5); Platelet Count 190 K/uL (130-400); RDW Coefficient of Variation 14.5 % (11.5-14.5); RDW Standard Deviation 46.2 fL (36.4-46.3); Red Blood Count 5.12 M/uL (4.63-6.08); White Blood Count 8.95 K/ul (4.8-10.8)
[2022-05-29 03:20] LABS: Albumin Level 3.5 gm/dl (3.4-5.0); BUN Creatinine Ratio 16.4 (10-20); Bilirubin,Total 1.6 mg/dl (0.2-1.0); Calcium 8.7 mg/dl (8.5-10.1); Creatinine Clr Calc Pharmacy 85.6 ml/min; Est GFR (African American) 65.8 ml/min; Est GFR (Non-African American) 56.8 ml/min; Globulin 3.4 gm/dl (2.5-4.0); Magnesium 1.9 mg/dl (1.7-2.4); Potassium 4.4 mmol/L (3.5-5.1); Total Protein 6.9 gm/dl (6.0-8.3)
--- NOTE | 2022-05-29 06:01 | Electrocardiogram Report ---
Test Reason : Blood Pressure : / mmHG Vent. Rate : 110 BPM Atrial Rate : 110 BPM P-R Int : 138 ms QRS Dur : 084 ms QT Int : 328 ms P-R-T Axes : 027 065 032 degrees QTc Int : 443 ms Poor data quality, interpretation may be adversely affected Sinus tachycardia Low voltage QRS Possible Inferior infarct , age undetermined Poor R wave progression, consider anterior NM vs. lead placement vs. LVH Abnormal ECG When compared with ECG of 28-AUG-2008 21:09, QRS voltage has decreased Borderline criteria for Inferior infarct are now Present Confirmed by Tito Singleton ([id number]) on 05/29/2022 6:00:42 AM Referred By: REFERRED SELF Confirmed By:Tito Singleton
[2022-05-29] MEDS: Patient's HEIGHT &/or WEIGHT Needed SCH ×5 (07:22→10:01)
[2022-05-29] MEDS ORDERED: FUROSEMIDE 40 MG/4 ML VIAL IV SCH (09:00)
[2022-05-29] MEDS: INSULIN ASPART PER UNIT SC SCH ×4 (09:14→21:01)
[2022-05-29] MEDS: SPIRONOLACTONE 12.5 MG TAB PO SCH (09:38)
[2022-05-29] MEDS: MULTIVITAMIN TAB PO SCH (09:39)
[2022-05-29] MEDS: LOSARTAN POTASSIUM 50 MG TAB PO SCH (09:39)
[2022-05-29] MEDS: carvediloL 3.125 MG TAB PO SCH (09:40)
[2022-05-29] MEDS: ASCORBIC ACID 500 MG TAB PO SCH (09:40)
[2022-05-29] MEDS: ASPIRIN 81 MG CHEW PO SCH (09:40)
--- NOTE | 2022-05-29 09:57 | Cardiology Progress Note ---
Date of Service May 29, 2022 Assessment & Plan (1) Heart failure, diastolic, with acute decompensation: (2) Acute respiratory failure with hypoxia: (3) Hypertensive urgency: (4) Pleural effusion, bilateral: (5) Elevated troponin I level: Plan Titrate Lasix to 40 mg twice daily. Increase carvedilol to 6.25 mg twice daily. Monitor daily weight, fluid balance, and GFR. Replace electrolytes as indicated. Add topical nitrates for afterload reduction. Continue losartan and aspirin as added on admission. Further ischemic evaluation when stabilized from a heart failure perspective. All questions answered to satisfaction of both the patient and his via telephone. Admission and Anticipated Discharge Date Admission Date: May 28, 2022 Subjective Patient seen exam at the bedside. Fluid balance -2.6 L. Renal function remained stable. Blood pressure improved. Has not received a.m. dose of Lasix today. Reports continued orthopnea. Mildly improved lower extremity edema. Occasional episodes of chest discomfort noted lasting up to 5 minutes at rest. Denies any exertional chest pain or heaviness prior to admission. Notes family history of coronary disease and diabetes. Denies palpitations, lightheadedness, or dizziness. Telemetry reveals sinus rhythm with heart rate averaging 90 bpm. No dysrhythmias recorded. present via telephone during evaluation. Review of Systems Review of Systems: All systems reviewed & are unremarkable except as noted in Subjective Physical Exam Constitutional: well developed, well nourished and + obese Respiratory: Auscultation: + diminished lung sounds (Bases bilateral) and + rales (Bases bilateral); no rhonchi and no wheezes Cardiovascular: Rate/Rhythm: regular rate and regular rhythm Heart Sounds: normal S1 and normal S2; no murmur Vessels: radial pulses present; no JVD (Difficult to assess in the upright position due to body habitus.) and no carotid bruit Gastrointestinal (Abdomen): Inspection/Auscultation: normal bowel sounds; abdomen not distended Percussion/Palpation: abdomen soft; abdomen nontender, no guarding and abdomen not rigid Neurologic: CN's II-XI intact bilaterally and moves all extremities; no focal motor deficits Motor/Sensory: no tremor Psychiatric: A+Ox3, euthymic affect Results & Data ([facility]) Vital Signs (Past 12 Hours) Vital Signs Pulse Resp BP Pulse Ox O2 Del Method O2 Flow Rate 05/29/22 06:33 Nasal Cannula 4 05/29/22 05:03 95 H 21 182/116 H 94 Nasal Cannula 4 05/29/22 00:05 88 18 191/119 H 97 Nasal Cannula 4
[2022-05-29] MEDS: NITROGLYCERIN 2% OINTMENT 30GM TUBE EXT SCH ×3 (10:50→21:49)
--- NOTE | 2022-05-29 14:55 | Hospitalist Progress Note ---
Date of Service May 29, 2022 Assessment & Plan (1) Acute respiratory failure with hypoxia: (2) Congestive heart failure: (3) Hypertensive urgency: (4) Morbid obesity: (5) Hyperglycemia: Plan This is a 61 yr old M who has a significant PMH of PE previously on warfarin, hx of volvulus and morbid obesity who presents to ED 2/2 to SOB x few months. Acute hypoxic respiratory failure Acute decompensated heart failure Hypertensive urgency - likely in setting of uncontrolled hypertension Hypervolemic and still symptomatic on exam with intermittent chest pain and SOB with min exertion reported. Still requiring oxygen supplementation. -2.6L off overnight Cardiology increased Lasix to 40mg IV BID and added nitroglycerin A1C is 7.1 and he is obese. This needs to be addressed with glycemic control for new diabetes (need repeat A1C for formal diagnosis) Cont losartan and coreg at this time. Hyperglycemia awaiting repeat A1C, initial was 7.1 He is not requiring insulin coverage at this time. Cont frequent BSG checks. development educator saw him. Close PCP follow-up is recommended after discharge. Morbid obesity consider lifestyle and diet modifications which may be a challenge in setting of heart failure. consult supervisor enrobing for assistance Hx of PE/DVT ppx: SQ Lovenox Dispo: PCU, discussed wtih who was at bedside. All questions answered to her satisfaction. PCP: none, previously followed Dr. Hurst [facility] Admission and Anticipated Discharge Date Admission Date: May 28, 2022 Subjective Recheck at bedside at 2:45pm. 155/90, 165/92 Reports intermittent chest pain that is fleeting, SOB at rest this afternoon and with minimal exertion. Pt not on home oxygen typically. +orthopnea. +trace edema in lower extremities Reports some chronic swelling. He is tolerating nitro well-no headache. BP results as above. -2.6L fluid balance this am. Feeling better since yesterday but still with symptoms. at bedside and was updated on the plan. Review of Systems Review of Systems: All systems reviewed negative except as indicated above Physical Exam Physical Exam: CONSTITUTIONAL: obese, vitals as above, generally well- appearing, EYES: normal conjunctivae, no scleral icterus, ENT: external ear and nose normal, MMM NECK: trachea midline RESPIRATORY: clear to auscultation bilaterally, no crackles, rales or wheezes, normal respiratory effort CARDIOVASCULAR: regular rate and rhythm, S1 and 2 heard without murmurs, gallops or rubs, no JVD, +1 peripheral edema, CHEST: inspection of chest was normal GASTROINTESTINAL: soft, protuberant, nontender, no guarding MUSCULOSKELETAL: strength 5/5 throughout, head is normocephalic and atraumatic SKIN: warm and dry, NEUROLOGIC: CN 2-12 grossly intact, normal cognition, normal speech, no tremor, no gross focal deficits. PSYCHIATRIC: alert cooperative and oriented to person, place and time. Euthymic mood, makes good eye contact, language grossly intact, recent and remote memory grossly intact. Results & Data Results & Data ([place]) Vital Signs (Past 12 Hours) Vital Signs Temp Pulse Pulse Resp BP BP Pulse Ox 05/29/22 11:14 92 H 05/29/22 11:14 05/29/22 11:11 36.5 C 80 22 177/99 H 100 05/29/22 06:33 05/29/22 05:03 95 H 21 182/116 H 94 O2 Del Method O2 Flow Rate 05/29/22 11:14 05/29/22 11:14 Nasal Cannula 4 05/29/22 11:11 Nasal Cannula 4 05/29/22 06:33 Nasal Cannula 4 05/29/22 05:03 Nasal Cannula 4 Laboratory Results Short CBC 05/29/22 Range/Units 02:35 WBC 8.95 (4.8-10.8) K/ul Hgb 14.1 (14.0-18.0) g/dl Hct 45.6 (40.1-51.0) % Plt Count 190 (130-400) K/uL BMP 05/29/22 02:35 Sodium 139 Potassium 4.4 Chloride 99 Carbon Dioxide 36 H BUN 22 Creatinine 1.34 Glucose 138 H Calcium 8.7 Liver Function 05/29/22 Range/Units 02:35 Total Bilirubin 1.6 H D (0.2-1.0) mg/dl AST 19 (13-39) U/L ALT 18 (7-52) U/L Alkaline Phosphatase 63 (34-104) U/L Albumin 3.5 (3.4-5.0) gm/dl Medications Administered Current Inpatient Medications Acetaminophen (Acetaminophen 325 Mg Tab) 650 mg PO Q4H PRN PRN Reason: Pain or Fever Stop: 06/27/22 12:08 Al Hydrox/Mg Hydrox/Simethicone (Aluminum/Magnesium Susp 30 Ml Udc) 15 ml PO Q4H PRN PRN Reason: Dyspepsia Stop: 06/27/22 12:08 Ascorbic Acid (Ascorbic Acid 500 Mg Tab) 500 mg PO DAILY SUSANA Stop: 06/28/22 08:59 Last Admin: 05/29/22 09:40 Dose: 500 mg Aspirin (Aspirin 81 Mg Chew) 81 mg PO DAILY SUSANA Stop: 06/28/22 08:59 Last Admin: 05/29/22 09:40 Dose: 81 mg Carvedilol (Carvedilol 6.25 Mg Tab) 6.25 mg PO BID SUSANA Stop: 06/28/22 20:59 Dextrose (Dextrose 50% 50 Ml Syringe) 25 - 50 ml IV UD PRN; Protocol PRN Reason: Hypoglycemia Protocol Stop: 06/27/22 12:28 Enoxaparin Sodium (Enoxaparin Inj 40 Mg/0.4 Ml Syr) 40 mg SQ Q24H SUSANA Stop: 06/27/22 20:59 Last Admin: 05/28/22 21:48 Dose: 40 mg Furosemide (Furosemide 40 Mg/4 Ml Vial) 40 mg IV BID SUSANA Stop: 06/28/22 17:59 Last Admin: 05/29/22 16:37 Dose: 40 mg Glucagon (Glucagon For Inj 1 Mg Vial) 1 mg SQ UD PRN; Protocol PRN Reason: Hypoglycemia Protocol Stop: 06/27/22 12:28 Glucose (Glucose 10 Tab/Tube) 4 - 8 tab PO UD PRN; Protocol PRN Reason: Hypoglycemia Treatment Stop: 06/27/22 12:28 Glucose (Glucose 40% Gel 15 Gm Tube) 15 - 30 gm PO UD PRN; Protocol PRN Reason: Hypoglycemia Protocol Stop: 06/27/22 12:28 Insulin Aspart (Insulin Aspart Per Unit) 0 units SC ACHS [facility] Stop: 06/27/22 16:29 Last Admin: 05/29/22 16:51 Dose: Not Given Losartan Potassium (Losartan Potassium 50 Mg Tab) 50 mg PO QAM SUSANA Stop: 06/28/22 08:59 Last Admin: 05/29/22 09:39 Dose: 50 mg Magnesium Hydroxide (Magnesium Hydroxide Susp 30 Ml Udc) 30 ml PO Q12H PRN PRN Reason: Constipation Stop: 06/27/22 12:08 Miscellaneous (Carbohydrates For Hypoglycemia ) 15 - 30 gm PO UD PRN PRN Reason: Hypoglycemia Protocol Stop: 06/27/22 12:28 Multivitamins (Multivitamin Tab) 1 tab PO DAILY [facility] Stop: 06/28/22 08:59 Last Admin: 05/29/22 09:39 Dose: 1 tab Nitroglycerin (Nitroglycerin 2% Ointment 30gm Tube) 1 inch EXT Q6H SUSANA Stop: 06/28/22 09:59 Last Admin: 05/29/22 15:34 Dose: 1 inch Ondansetron HCl (Ondansetron Inj 2 Mg/Ml 2 Ml Vial) 4 mg IV Q6H PRN PRN Reason: Nausea Stop: 06/27/22 12:08 Polyethylene Glycol (Polyethylene (Miralax) 17 Gm Pack) 17 gm PO DAILY PRN PRN Reason: Constipation Stop: 06/27/22 12:08 Spironolactone (Spironolactone 12.5 Mg Tab) 12.5 mg PO DAILY [facility] Stop: 06/28/22 08:59 Last Admin: 05/29/22 09:38 Dose: 12.5 mg (1) Congestive heart failure Heart failure type: diastolic Heart failure chronicity: acute Qualified Code(s): I50.31 - Acute diastolic (congestive) heart failure
[2022-05-29] MEDS: FUROSEMIDE 40 MG/4 ML VIAL IV SCH ×2 (16:37→20:43)
[2022-05-29] MEDS: carvediloL 6.25 MG TAB PO SCH (20:44)
[2022-05-29] MEDS: ENOXAPARIN INJ 40 MG/0.4 ML SYR SQ SCH (20:44)
[2022-05-30] MEDS: NITROGLYCERIN 2% OINTMENT 30GM TUBE EXT SCH ×4 (04:20→22:23)
[2022-05-30 07:02] LABS: BUN Creatinine Ratio 20.6 (10-20); Calcium 8.7 mg/dl (8.5-10.1); Creatinine Clr Calc Pharmacy 91.6 ml/min; Est GFR (African American) 67.6 ml/min; Est GFR (Non-African American) 58.3 ml/min; Potassium 4.4 mmol/L (3.5-5.1)
[2022-05-30] MEDS: INSULIN ASPART PER UNIT SC SCH ×4 (07:47→20:47)
[2022-05-30] MEDS: SPIRONOLACTONE 12.5 MG TAB PO SCH (08:07)
[2022-05-30] MEDS: carvediloL 6.25 MG TAB PO SCH ×2 (08:07→20:38)
[2022-05-30] MEDS: ASCORBIC ACID 500 MG TAB PO SCH (08:07)
[2022-05-30] MEDS: FUROSEMIDE 40 MG/4 ML VIAL IV SCH ×2 (08:07→20:39)
[2022-05-30] MEDS: MULTIVITAMIN TAB PO SCH (08:07)
[2022-05-30] MEDS: LOSARTAN POTASSIUM 50 MG TAB PO SCH (08:07)
[2022-05-30] MEDS: ASPIRIN 81 MG CHEW PO SCH (08:09)
[2022-05-30 08:39] LABS: Estimated Average Glucose 154 mg/dl
[2022-05-30] MEDS ORDERED: SODIUM CHLORIDE 0.65% NA SOLN 45 ML (OCEAN) ONE (08:47)
--- NOTE | 2022-05-30 10:12 | Cardiology Progress Note ---
Date of Service May 30, 2022 Assessment & Plan (1) Heart failure, diastolic, with acute decompensation: (2) Acute respiratory failure with hypoxia: (3) Hypertensive urgency: (4) Pleural effusion, bilateral: (5) Elevated troponin I level: Plan Continue Lasix to 40 mg twice daily. Carvedilol titrated to 6.25 mg twice daily 05/29/22. Topical nitrates added for afterload reduction yesterday. Monitor daily weight, fluid balance, and GFR. Replace electrolytes as indicated. Continue losartan, aldactone, and aspirin as added on admission. Further ischemic evaluation when stabilized from a heart failure perspective (Likely Friday or Friday). All questions answered to patient's satisfaction. Admission and Anticipated Discharge Date Admission Date: May 28, 2022 Subjective Patient seen examined the bedside. Fluid balance -1.9 L. Edema improving. Oxygen requirements improved. Currently satting 100% on 3 L nasal cannula. Orthopnea unchanged. Renal function remained stable. Sinus rhythm on telemetry. Review of Systems Review of Systems: All systems reviewed & are unremarkable except as noted in Subjective Physical Exam Constitutional: well developed, well nourished and + obese Respiratory: Auscultation: + diminished lung sounds (Bases bilateral) and + rales (Bases bilateral); no rhonchi and no wheezes Cardiovascular: Rate/Rhythm: regular rate and regular rhythm Heart Sounds: normal S1 and normal S2; no murmur Vessels: radial pulses present; no JVD (Difficult to assess in the upright position due to body habitus.) and no carotid bruit Extremities: + edema (1+ bilateral pretibial edema) Gastrointestinal (Abdomen): Inspection/Auscultation: normal bowel sounds; abdomen not distended Percussion/Palpation: abdomen soft; abdomen nontender, no guarding and abdomen not rigid Neurologic: CN's II-XI intact bilaterally and moves all extremities; no focal motor deficits Motor/Sensory: no tremor Psychiatric: A+Ox3, euthymic affect Results & Data ([facility]) Vital Signs (Past 12 Hours) Vital Signs Temp Pulse Pulse Resp BP Pulse Ox O2 Del Method 05/30/22 08:00 77 05/30/22 08:00 Nasal Cannula 05/30/22 06:52 36.8 C 84 18 167/78 H 100 Nasal Cannula 05/30/22 04:10 36.6 C 86 18 121/70 90 Nasal Cannula 05/29/22 23:20 36.4 C L 84 18 163/88 H 94 O2 Flow Rate 05/30/22 08:00 05/30/22 08:00 3 05/30/22 06:52 05/30/22 04:10 7 05/29/22 23:20
[2022-05-30] MEDS: ENOXAPARIN INJ 40 MG/0.4 ML SYR SQ SCH (20:38)
--- NOTE | 2022-05-30 22:15 | Hospitalist Progress Note ---
Date of Service May 30, 2022 Assessment & Plan (1) Acute respiratory failure with hypoxia: (2) Congestive heart failure: (3) Hypertensive urgency: (4) Morbid obesity: (5) Hyperglycemia: Plan This is a 61 yr old M who has a significant PMH of PE previously on warfarin, hx of volvulus and morbid obesity who presents to ED 2/2 to SOB x few months. Acute hypoxic respiratory failure Acute decompensated heart failure Hypertensive urgency - likely in setting of uncontrolled hypertension SOB improved, chest pain has resolved. Still requiring oxygen supplementation-improved -1.7L out overnight Cont Lasix IV BID and nitro patch A1C is 7.1 and he is obese. This needs to be addressed with glycemic control for new diabetes (need repeat A1C for formal diagnosis) Cont losartan, coreg, Lasix, nitro and spironolactone. Hyperglycemia awaiting repeat A1C, initial was 7.1 He is not requiring insulin coverage at this time. Cont frequent BSG checks. extension educator saw him. Close PCP follow-up is recommended after discharge. Morbid obesity consider lifestyle and diet modifications which may be a challenge in setting of heart failure. consult buildings painter for assistance Hx of PE/DVT ppx: SQ Lovenox Dispo: PCU PCP: none, previously followed Dr. Hurst [facility] Admission and Anticipated Discharge Date Admission Date: May 28, 2022 Subjective 61 yo M admitted for acute heart failure denies chest pain less short of breath losing weight improved clinically tolerating PO Review of Systems Review of Systems: All systems reviewed negative except as indicated above Physical Exam Physical Exam: CONSTITUTIONAL: obese, vitals as above, generally well- appearing, EYES: normal conjunctivae, no scleral icterus, ENT: external ear and nose normal, MMM NECK: trachea midline RESPIRATORY: clear to auscultation bilaterally, no crackles, rales or wheezes, normal respiratory effort CARDIOVASCULAR: regular rate and rhythm, S1 and 2 heard without murmurs, gallops or rubs, no JVD, +1 peripheral edema, CHEST: inspection of chest was normal GASTROINTESTINAL: soft, protuberant, nontender, no guarding MUSCULOSKELETAL: strength 5/5 throughout, head is normocephalic and atraumatic SKIN: warm and dry, NEUROLOGIC: CN 2-12 grossly intact, normal cognition, normal speech, no tremor, no gross focal deficits. PSYCHIATRIC: alert cooperative and oriented to person, place and time. Euthymic mood, makes good eye contact, language grossly intact, recent and remote memory grossly intact. Results & Data Results & Data ([facility]) Vital Signs (Past 12 Hours) Vital Signs Temp Pulse Pulse Resp BP BP Pulse Ox 05/30/22 19:28 36.6 C 87 20 161/92 H 95 05/30/22 15:00 36.8 C 80 20 141/76 H 98 05/30/22 15:36 76 05/30/22 12:55 37.0 C 78 16 161/68 H 96 O2 Del Method O2 Flow Rate 05/30/22 19:28 Nasal Cannula 3 05/30/22 15:00 05/30/22 15:36 05/30/22 12:55 Laboratory Results BMP 05/30/22 05:32 Sodium 139 Potassium 4.4 Chloride 96 L Carbon Dioxide 39 H BUN 27 H Creatinine 1.31 Glucose 110 H Calcium 8.7 Medications Administered Current Inpatient Medications Acetaminophen (Acetaminophen 325 Mg Tab) 650 mg PO Q4H PRN PRN Reason: Pain or Fever Stop: 06/27/22 12:08 Al Hydrox/Mg Hydrox/Simethicone (Aluminum/Magnesium Susp 30 Ml Udc) 15 ml PO Q4H PRN PRN Reason: Dyspepsia Stop: 06/27/22 12:08 Ascorbic Acid (Ascorbic Acid 500 Mg Tab) 500 mg PO DAILY [facility]USANA Stop: 06/28/22 08:59 Last Admin: 05/30/22 08:07 Dose: 500 mg Aspirin (Aspirin 81 Mg Chew) 81 mg PO DAILY [facility] Stop: 06/28/22 08:59 Last Admin: 05/30/22 08:09 Dose: 81 mg Carvedilol (Carvedilol 6.25 Mg Tab) 6.25 mg PO BID [facility] Stop: 06/28/22 20:59 Last Admin: 05/30/22 20:38 Dose: 6.25 mg Dextrose (Dextrose 50% 50 Ml Syringe) 25 - 50 ml IV UD PRN; Protocol PRN Reason: Hypoglycemia Protocol Stop: 06/27/22 12:28 Enoxaparin Sodium (Enoxaparin Inj 40 Mg/0.4 Ml Syr) 40 mg SQ Q24H [facility]USANA Stop: 06/27/22 20:59 Last Admin: 05/30/22 20:38 Dose: 40 mg Furosemide (Furosemide 40 Mg/4 Ml Vial) 40 mg IV BID [facility] Stop: 06/28/22 17:59 Last Admin: 05/30/22 20:39 Dose: 40 mg Glucagon (Glucagon For Inj 1 Mg Vial) 1 mg SQ UD PRN; Protocol PRN Reason: Hypoglycemia Protocol Stop: 06/27/22 12:28 Glucose (Glucose 10 Tab/Tube) 4 - 8 tab PO UD PRN; Protocol PRN Reason: Hypoglycemia Treatment Stop: 06/27/22 12:28 Glucose (Glucose 40% Gel 15 Gm Tube) 15 - 30 gm PO UD PRN; Protocol PRN Reason: Hypoglycemia Protocol Stop: 06/27/22 12:28 Insulin Aspart (Insulin Aspart Per Unit) 0 units SC ACHS [facility] Stop: 06/27/22 16:29 Last Admin: 05/30/22 20:47 Dose: Not Given Losartan Potassium (Losartan Potassium 50 Mg Tab) 50 mg PO QAM [facility] Stop: 06/28/22 08:59 Last Admin: 05/30/22 08:07 Dose: 50 mg Magnesium Hydroxide (Magnesium Hydroxide Susp 30 Ml Udc) 30 ml PO Q12H PRN PRN Reason: Constipation Stop: 06/27/22 12:08 Miscellaneous (Carbohydrates For Hypoglycemia ) 15 - 30 gm PO UD PRN PRN Reason: Hypoglycemia Protocol Stop: 06/27/22 12:28 Multivitamins (Multivitamin Tab) 1 tab PO DAILY [facility] Stop: 06/28/22 08:59 Last Admin: 05/30/22 08:07 Dose: 1 tab Nitroglycerin (Nitroglycerin 2% Ointment 30gm Tube) 1 inch EXT Q6H [facility] Stop: 06/28/22 09:59 Last Admin: 05/30/22 16:18 Dose: 1 inch Ondansetron HCl (Ondansetron Inj 2 Mg/Ml 2 Ml Vial) 4 mg IV Q6H PRN PRN Reason: Nausea Stop: 06/27/22 12:08 Polyethylene Glycol (Polyethylene (Miralax) 17 Gm Pack) 17 gm PO DAILY PRN PRN Reason: Constipation Stop: 06/27/22 12:08 Spironolactone (Spironolactone 12.5 Mg Tab) 12.5 mg PO DAILY [facility]NA Stop: 06/28/22 08:59 Last Admin: 05/30/22 08:07 Dose: 12.5 mg (1) Congestive heart failure Heart failure chronicity: acute Heart failure type: diastolic Qualified Code(s): I50.31 - Acute diastolic (congestive) heart failure
[2022-05-31] MEDS: NITROGLYCERIN 2% OINTMENT 30GM TUBE EXT SCH ×4 (03:45→22:05)
--- NOTE | 2022-05-31 05:39 | Electrocardiogram Report ---
Test Reason : Blood Pressure : / mmHG Vent. Rate : 090 BPM Atrial Rate : 090 BPM P-R Int : 150 ms QRS Dur : 080 ms QT Int : 362 ms P-R-T Axes : 030 054 050 degrees QTc Int : 442 ms Sinus rhythm with Premature atrial complexes in a pattern of bigeminy Low voltage QRS Cannot rule out Anterior infarct , age undetermined Abnormal ECG When compared with ECG of 28-MAY-2022 06:26, Premature atrial complexes are now Present Confirmed by Tito Singleton ([id number]) on 05/31/2022 5:39:19 AM Referred By: REFERRED SELF Confirmed By:Tito Singleton
[2022-05-31] MEDS: INSULIN ASPART PER UNIT SC SCH ×4 (07:47→20:46)
[2022-05-31] MEDS: FUROSEMIDE 40 MG/4 ML VIAL IV SCH ×2 (08:28→15:43)
[2022-05-31] MEDS: MULTIVITAMIN TAB PO SCH (08:28)
[2022-05-31] MEDS: ASPIRIN 81 MG CHEW PO SCH (08:28)
[2022-05-31] MEDS: ASCORBIC ACID 500 MG TAB PO SCH (08:28)
[2022-05-31] MEDS: carvediloL 6.25 MG TAB PO SCH ×2 (08:28→20:47)
[2022-05-31] MEDS: LOSARTAN POTASSIUM 50 MG TAB PO SCH (08:28)
[2022-05-31] MEDS: SPIRONOLACTONE 12.5 MG TAB PO SCH (08:29)
[2022-05-31 08:43] LABS: BUN Creatinine Ratio 22.9 (10-20); Calcium 8.9 mg/dl (8.5-10.1); Creatinine Clr Calc Pharmacy 91.3 ml/min; Est GFR (African American) 67.6 ml/min; Est GFR (Non-African American) 58.3 ml/min; Potassium 4.1 mmol/L (3.5-5.1)
--- NOTE | 2022-05-31 10:15 | Cardiology Progress Note ---
Date of Service May 31, 2022 Assessment & Plan (1) Heart failure, diastolic, with acute decompensation: (2) Acute respiratory failure with hypoxia: (3) Hypertensive urgency: (4) Pleural effusion, bilateral: (5) Elevated troponin I level: Plan Continue Lasix to 40 mg twice daily. Titrate aldactone to 25mg daily. Monitor daily weight, fluid balance, and GFR. Replace electrolytes as indicated. Continue losartan, carvedilol, topical nitrates, and aspirin as added on a dmission. Further ischemic evaluation when stabilized from a heart failure perspective (Likely Friday or Friday). All questions answered to patient's satisfaction. Admission and Anticipated Discharge Date Admission Date: May 28, 2022 Subjective Patient seen examined the bedside. Fluid balance -2.4 L. Renal function remains stable. Blood pressure improving. Oxygen requirements improved as well. Patient able to lie nearly supine last evening. Denies chest discomfort or heaviness. No dysrhythmias on telemetry. Review of Systems Review of Systems: All systems reviewed & are unremarkable except as noted in Subjective Physical Exam Constitutional: well developed, well nourished and + obese Respiratory: Auscultation: + diminished lung sounds (Bases bilateral) and + rales (Bases bilateral); no rhonchi and no wheezes Cardiovascular: Rate/Rhythm: regular rate and regular rhythm Heart Sounds: normal S1 and normal S2; no murmur Vessels: radial pulses present; no JVD (Difficult to assess in the upright position due to body habitus.) and no carotid bruit Extremities: + edema (1+ bilateral pretibial edema) Gastrointestinal (Abdomen): Inspection/Auscultation: normal bowel sounds; abdomen not distended Percussion/Palpation: abdomen soft; abdomen nontender, no guarding and abdomen not rigid Neurologic: CN's II-XI intact bilaterally and moves all extremities; no focal motor deficits Motor/Sensory: no tremor Psychiatric: A+Ox3, euthymic affect Results & Data ([facility]) Vital Signs (Past 12 Hours) Vital Signs Temp Pulse Pulse Resp BP Pulse Ox O2 Del Method 05/31/22 08:00 76 05/31/22 08:00 Room Air 05/31/22 07:26 36.5 C 86 18 154/89 H 92 Nasal Cannula 05/31/22 02:57 36.6 C 83 18 146/83 H 94 Nasal Cannula 05/30/22 23:00 93 H 05/30/22 23:05 36.5 C 86 19 166/93 H 96 Nasal Cannula O2 Flow Rate 05/31/22 08:00 05/31/22 08:00 05/31/22 07:26 05/31/22 02:57 3 05/30/22 23:00 05/30/22 23:05 3
--- NOTE | 2022-05-31 17:25 | Hospitalist Progress Note ---
Date of Service May 31, 2022 Assessment & Plan (1) Acute respiratory failure with hypoxia: (2) Congestive heart failure: (3) Hypertensive urgency: (4) Morbid obesity: (5) Hyperglycemia: Plan This is a 61 yr old M who has a significant PMH of PE previously on warfarin, hx of volvulus and morbid obesity who presents to ED 2/2 to SOB x few months. Acute hypoxic respiratory failure Acute decompensated heart failure Hypertensive urgency - likely in setting of uncontrolled hypertension SOB improved, chest pain has resolved. Still requiring oxygen supplementation-improved 2.6L out overnight Cont Lasix IV BID and nitro patch A1C is 7.1 and he is obese. New diabetes diagnosis. Cont losartan, coreg, Lasix, nitro and spironolactone. DMII, new onset A1C x 2 over goal. He is not requiring insulin coverage at this time. Cont frequent BSG checks. staff development educator saw him. Close PCP follow-up is recommended after discharge. Morbid obesity consider lifestyle and diet modifications which may be a challenge in setting of heart failure. consult bell clerk for assistance Hx of PE/DVT ppx: SQ Lovenox Dispo: PCU PCP: none, previously followed Dr. Hurst FULL CODE Mary Redman DO [facility] Hospitalist Admission and Anticipated Discharge Date Admission Date: May 28, 2022 Subjective 61 yo M with acute decompensated heart failure Doing well today. No chest pain, breathing is improving. Fluid balance -2.6 L. +swelling in legs. Discussed TEDs/SCDs Review of Systems Review of Systems: All systems reviewed negative except as indicated above Physical Exam Physical Exam: CONSTITUTIONAL: obese, vitals as above, generally well- appearing, EYES: normal conjunctivae, no scleral icterus, ENT: external ear and nose normal, MMM NECK: trachea midline RESPIRATORY: clear to auscultation bilaterally, no crackles, rales or wheezes, normal respiratory effort CARDIOVASCULAR: regular rate and rhythm, S1 and 2 heard without murmurs, gallops or rubs, no JVD, +1 peripheral edema, CHEST: inspection of chest was normal GASTROINTESTINAL: soft, protuberant, nontender, no guarding MUSCULOSKELETAL: strength 5/5 throughout, head is normocephalic and atraumatic SKIN: warm and dry, NEUROLOGIC: CN 2-12 grossly intact, normal cognition, normal speech, no tremor, no gross focal deficits. PSYCHIATRIC: alert cooperative and oriented to person, place and time. Euthymic mood, makes good eye contact, language grossly intact, recent and remote memory grossly intact. Results & Data Results & Data ([facility]) Vital Signs (Past 12 Hours) Vital Signs Temp Pulse Pulse Resp BP Pulse Ox O2 Del Method 05/31/22 16:03 36.4 C L 80 20 152/89 H 97 Nasal Cannula 05/31/22 15:06 84 05/31/22 11:25 36.7 C 80 21 131/80 98 Nasal Cannula 05/31/22 08:00 76 05/31/22 08:00 Room Air 05/31/22 07:26 36.5 C 86 18 154/89 H 92 Nasal Cannula O2 Flow Rate 05/31/22 16:03 4 05/31/22 15:06 05/31/22 11:25 4 05/31/22 08:00 05/31/22 08:00 05/31/22 07:26 Laboratory Results BMP 05/31/22 07:40 Sodium 136 Potassium 4.1 Chloride 95 L Carbon Dioxide 38 H BUN 30 H Creatinine 1.31 Glucose 98 Calcium 8.9 Medications Administered Current Inpatient Medications Acetaminophen (Acetaminophen 325 Mg Tab) 650 mg PO Q4H PRN PRN Reason: Pain or Fever Stop: 06/27/22 12:08 Al Hydrox/Mg Hydrox/Simethicone (Aluminum/Magnesium Susp 30 Ml Udc) 15 ml PO Q4H PRN PRN Reason: Dyspepsia Stop: 06/27/22 12:08 Ascorbic Acid (Ascorbic Acid 500 Mg Tab) 500 mg PO DAILY SUSANA Stop: 06/28/22 08:59 Last Admin: 05/31/22 08:28 Dose: 500 mg Aspirin (Aspirin 81 Mg Chew) 81 mg PO DAILY SUSANA Stop: 06/28/22 08:59 Last Admin: 05/31/22 08:28 Dose: 81 mg Carvedilol (Carvedilol 6.25 Mg Tab) 6.25 mg PO BID SUSANA Stop: 06/28/22 20:59 Last Admin: 05/31/22 08:28 Dose: 6.25 mg Dextrose (Dextrose 50% 50 Ml Syringe) 25 - 50 ml IV UD PRN; Protocol PRN Reason: Hypoglycemia Protocol Stop: 06/27/22 12:28 Enoxaparin Sodium (Enoxaparin Inj 40 Mg/0.4 Ml Syr) 40 mg SQ Q24H SUSANA Stop: 06/27/22 20:59 Last Admin: 05/30/22 20:38 Dose: 40 mg Furosemide (Furosemide 40 Mg/4 Ml Vial) 40 mg IV BID@0900,1600 SUSANA Stop: 06/28/22 17:59 Last Admin: 05/31/22 15:43 Dose: 40 mg Glucagon (Glucagon For Inj 1 Mg Vial) 1 mg SQ UD PRN; Protocol PRN Reason: Hypoglycemia Protocol Stop: 06/27/22 12:28 Glucose (Glucose 10 Tab/Tube) 4 - 8 tab PO UD PRN; Protocol PRN Reason: Hypoglycemia Treatment Stop: 06/27/22 12:28 Glucose (Glucose 40% Gel 15 Gm Tube) 15 - 30 gm PO UD PRN; Protocol PRN Reason: Hypoglycemia Protocol Stop: 06/27/22 12:28 Insulin Aspart (Insulin Aspart Per Unit) 0 units SC ACHS SUSANA Stop: 06/27/22 16:29 Last Admin: 05/31/22 16:30 Dose: Not Given Losartan Potassium (Losartan Potassium 50 Mg Tab) 50 mg PO QAM SUSANA Stop: 06/28/22 08:59 Last Admin: 05/31/22 08:28 Dose: 50 mg Magnesium Hydroxide (Magnesium Hydroxide Susp 30 Ml Udc) 30 ml PO Q12H PRN PRN Reason: Constipation Stop: 06/27/22 12:08 Miscellaneous (Carbohydrates For Hypoglycemia ) 15 - 30 gm PO UD PRN PRN Reason: Hypoglycemia Protocol Stop: 06/27/22 12:28 Multivitamins (Multivitamin Tab) 1 tab PO DAILY SUSANA Stop: 06/28/22 08:59 Last Admin: 05/31/22 08:28 Dose: 1 tab Nitroglycerin (Nitroglycerin 2% Ointment 30gm Tube) 1 inch EXT Q6H SUSANA Stop: 06/28/22 09:59 Last Admin: 05/31/22 15:43 Dose: 1 inch Ondansetron HCl (Ondansetron Inj 2 Mg/Ml 2 Ml Vial) 4 mg IV Q6H PRN PRN Reason: Nausea Stop: 06/27/22 12:08 Polyethylene Glycol (Polyethylene (Miralax) 17 Gm Pack) 17 gm PO DAILY PRN PRN Reason: Constipation Stop: 06/27/22 12:08 Spironolactone (Spironolactone 25 Mg Tab) 25 mg PO DAILY SUSANA Stop: 07/01/22 08:59 (1) Congestive heart failure Heart failure chronicity: acute Heart failure type: diastolic Qualified Code(s): I50.31 - Acute diastolic (congestive) heart failure
[2022-05-31] MEDS: ENOXAPARIN INJ 40 MG/0.4 ML SYR SQ SCH (20:47)
[2022-06-01] MEDS: NITROGLYCERIN 2% OINTMENT 30GM TUBE EXT SCH ×4 (03:48→22:21)
[2022-06-01 06:36] LABS: BUN Creatinine Ratio 24.8 (10-20); Blood Urea Nitrogen 32 mg/dl (6-23); Calcium 8.9 mg/dl (8.5-10.1); Carbon Dioxide 40 mmol/L (21-32); Chloride 96 mmol/L (98-107); Creatinine Clr Calc Pharmacy 92.4 ml/min; Est GFR (African American) 68.9 ml/min; Est GFR (Non-African American) 59.4 ml/min; Glucose 98 mg/dl (70-99(Fasting))
[2022-06-01] MEDS: INSULIN ASPART PER UNIT SC SCH ×4 (07:20→20:12)
[2022-06-01 07:27] LABS: Potassium 4.3 mmol/L (3.5-5.1)
[2022-06-01] MEDS: MULTIVITAMIN TAB PO SCH (08:18)
[2022-06-01] MEDS: ASPIRIN 81 MG CHEW PO SCH (08:18)
[2022-06-01] MEDS: SPIRONOLACTONE 25 MG TAB PO SCH (08:18)
[2022-06-01] MEDS: LOSARTAN POTASSIUM 50 MG TAB PO SCH (08:18)
[2022-06-01] MEDS: carvediloL 6.25 MG TAB PO SCH ×2 (08:19→20:11)
[2022-06-01] MEDS: ASCORBIC ACID 500 MG TAB PO SCH (08:19)
[2022-06-01] MEDS: FUROSEMIDE 40 MG/4 ML VIAL IV SCH ×2 (08:19→16:59)
--- NOTE | 2022-06-01 10:10 | Cardiology Progress Note ---
Date of Service June 01, 2022 Assessment & Plan (1) Heart failure, diastolic, with acute decompensation: (2) Acute respiratory failure with hypoxia: (3) Hypertensive urgency: (4) Pleural effusion, bilateral: (5) Elevated troponin I level: Plan Continue Lasix to 40 mg twice daily. Monitor daily weight, fluid balance, and GFR. Replace electrolytes as indicated. Continue losartan, carvedilol, topical nitrates, aldactone, and aspirin as added on admission. Further ischemic evaluation when stabilized from a heart failure perspective (Likely Friday). All questions answered to patient's satisfaction. Admission and Anticipated Discharge Date Admission Date: May 28, 2022 Subjective Patient seen and examined at the bedside. Fluid balance -2.6 L. Renal function remained stable. Denies chest pain or shortness of breath at rest. Oxygen saturation 91% on 3 L. Edema improving as well. No dysrhythmias on telemetry. Review of Systems Review of Systems: All systems reviewed & are unremarkable except as noted in Subjective Physical Exam Constitutional: well developed, well nourished and + obese Respiratory: Auscultation: + diminished lung sounds (Bases bilateral) and + rales (Bases bilateral); no rhonchi and no wheezes Cardiovascular: Rate/Rhythm: regular rate and regular rhythm Heart Sounds: normal S1 and normal S2; no murmur Vessels: radial pulses present; no JVD (Difficult to assess in the upright position due to body habitus.) and no carotid bruit Extremities: + edema (1+ bilateral pretibial edema) Gastrointestinal (Abdomen): Inspection/Auscultation: normal bowel sounds; abdomen not distended Percussion/Palpation: abdomen soft; abdomen nontender, no guarding and abdomen not rigid Neurologic: CN's II-XI intact bilaterally and moves all extremities; no focal motor deficits Motor/Sensory: no tremor Psychiatric: A+Ox3, euthymic affect Results & Data ([facility]) Vital Signs (Past 12 Hours) Vital Signs Temp Pulse Pulse Resp BP BP Pulse Ox 06/01/22 09:20 06/01/22 09:19 94 H 06/01/22 07:00 36.3 C L 86 20 178/96 H 91 06/01/22 03:09 36.6 C 83 16 126/80 97 05/31/22 23:57 82 05/31/22 22:41 36.8 C 85 16 153/97 H 95 O2 Del Method O2 Flow Rate 06/01/22 09:20 Nasal Cannula 3 06/01/22 09:19 06/01/22 07:00 Nasal Cannula 06/01/22 03:09 Nasal Cannula 4.5 05/31/22 23:57 05/31/22 22:41 Nasal Cannula 3
--- NOTE | 2022-06-01 18:09 | Hospitalist Progress Note ---
Date of Service June 01, 2022 Assessment & Plan (1) Acute respiratory failure with hypoxia: (2) Congestive heart failure: (3) Hypertensive urgency: (4) Morbid obesity: (5) Hyperglycemia: Plan This is a 61 yr old M who has a significant PMH of PE previously on warfarin, hx of volvulus and morbid obesity who presents to ED 2/2 to SOB x few months. Acute hypoxic respiratory failure Acute decompensated heart failure Hypertensive urgency - likely in setting of uncontrolled hypertension SOB improved, chest pain has resolved. Still requiring oxygen supplementation-improved 3L out overnight Cont Lasix IV BID and nitro patch A1C is 7.1 and he is obese. New diabetes diagnosis. Cont losartan, coreg, Lasix, nitro and spironolactone. Plan for cardiac cath on Friday. DMII, new onset A1C x 2 over goal. He is not requiring insulin coverage at this time. Cont frequent BSG checks. staff educator saw him. Close PCP follow-up is recommended after discharge. Morbid obesity consider lifestyle and diet modifications which may be a challenge in setting of heart failure. consult hospitality host for assistance Hx of PE/DVT ppx: SQ Lovenox Dispo: PCU PCP: none, previously followed Dr. Hurst FULL CODE Mary Redman DO [facility] Hospitalist Admission and Anticipated Discharge Date Admission Date: May 28, 2022 Subjective 61 yo M with acute decompensated heart failure Doing well today. No chest pain, breathing is improving. Fluid balance -3 L overnight. Swelling improved in lower body and he is feeling better with the TEDs in place. Review of Systems Review of Systems: All systems reviewed negative except as indicated above Physical Exam Physical Exam: CONSTITUTIONAL: obese, vitals as above, generally well- appearing, EYES: normal conjunctivae, no scleral icterus, ENT: external ear and nose normal, MMM NECK: trachea midline RESPIRATORY: clear to auscultation bilaterally, no crackles, rales or wheezes, normal respiratory effort CARDIOVASCULAR: regular rate and rhythm, S1 and 2 heard without murmurs, gallops or rubs, no JVD, +1 peripheral edema, CHEST: inspection of chest was normal GASTROINTESTINAL: soft, protuberant, nontender, no guarding MUSCULOSKELETAL: strength 5/5 throughout, head is normocephalic and atraumatic SKIN: warm and dry, NEUROLOGIC: CN 2-12 grossly intact, normal cognition, normal speech, no tremor, no gross focal deficits. PSYCHIATRIC: alert cooperative and oriented to person, place and time. Eut hymic mood, makes good eye contact, language grossly intact, recent and remote memory grossly intact. Results & Data Results & Data ([facility]) Vital Signs (Past 12 Hours) Vital Signs Temp Pulse Pulse Resp BP Pulse Ox O2 Del Method 06/01/22 15:44 94 06/01/22 15:43 36.5 C 83 18 152/84 H 95 Nasal Cannula 06/01/22 11:55 36.7 C 82 20 168/82 H 98 06/01/22 09:20 Nasal Cannula 06/01/22 09:19 94 H 06/01/22 07:00 36.3 C L 86 20 178/96 H 91 Nasal Cannula O2 Flow Rate 06/01/22 15:44 06/01/22 15:43 3 06/01/22 11:55 06/01/22 09:20 3 06/01/22 09:19 06/01/22 07:00 Laboratory Results [facility] 06/01/22 06/01/22 05:21 06:51 Sodium TNP 138 Potassium TNP 4.3 Chloride 96 L Carbon Dioxide 40 H BUN 32 H Creatinine 1.29 Glucose 98 Calcium 8.9 Medications Administered Current Inpatient Medications Acetaminophen (Acetaminophen 325 Mg Tab) 650 mg PO Q4H PRN PRN Reason: Pain or Fever Stop: 06/27/22 12:08 Al Hydrox/Mg Hydrox/Simethicone (Aluminum/Magnesium Susp 30 Ml Udc) 15 ml PO Q4H PRN PRN Reason: Dyspepsia Stop: 06/27/22 12:08 Ascorbic Acid (Ascorbic Acid 500 Mg Tab) 500 mg PO DAILY SUSANA Stop: 06/28/22 08:59 Last Admin: 06/01/22 08:19 Dose: 500 mg Aspirin (Aspirin 81 Mg Chew) 81 mg PO DAILY SUSANA Stop: 06/28/22 08:59 Last Admin: 06/01/22 08:18 Dose: 81 mg Carvedilol (Carvedilol 6.25 Mg Tab) 6.25 mg PO BID SUSANA Stop: 06/28/22 20:59 Last Admin: 06/01/22 08:19 Dose: 6.25 mg Dextrose (Dextrose 50% 50 Ml Syringe) 25 - 50 ml IV UD PRN; Protocol PRN Reason: Hypoglycemia Protocol Stop: 06/27/22 12:28 Enoxaparin Sodium (Enoxaparin Inj 40 Mg/0.4 Ml Syr) 40 mg SQ Q24H SUSANA Stop: 06/27/22 20:59 Last Admin: 05/31/22 20:47 Dose: 40 mg Furosemide (Furosemide 40 Mg/4 Ml Vial) 40 mg IV BID@0900,1600 SUSANA Stop: 06/28/22 17:59 Last Admin: 06/01/22 16:59 Dose: 40 mg Glucagon (Glucagon For Inj 1 Mg Vial) 1 mg SQ UD PRN; Protocol PRN Reason: Hypoglycemia Protocol Stop: 06/27/22 12:28 Glucose (Glucose 10 Tab/Tube) 4 - 8 tab PO UD PRN; Protocol PRN Reason: Hypoglycemia Treatment Stop: 06/27/22 12:28 Glucose (Glucose 40% Gel 15 Gm Tube) 15 - 30 gm PO UD PRN; Protocol PRN Reason: Hypoglycemia Protocol Stop: 06/27/22 12:28 Insulin Aspart (Insulin Aspart Per Unit) 0 units SC ACHS SUSANA Stop: 06/27/22 16:29 Last Admin: 06/01/22 16:52 Dose: Not Given Losartan Potassium (Losartan Potassium 50 Mg Tab) 50 mg PO QAM SUSANA Stop: 06/28/22 08:59 Last Admin: 06/01/22 08:18 Dose: 50 mg Magnesium Hydroxide (Magnesium Hydroxide Susp 30 Ml Udc) 30 ml PO Q12H PRN PRN Reason: Constipation Stop: 06/27/22 12:08 Last Admin: 06/01/22 10:25 Dose: 30 ml Miscellaneous (Carbohydrates For Hypoglycemia ) 15 - 30 gm PO UD PRN PRN Reason: Hypoglycemia Protocol Stop: 06/27/22 12:28 Multivitamins (Multivitamin Tab) 1 tab PO DAILY SUSANA Stop: 06/28/22 08:59 Last Admin: 06/01/22 08:18 Dose: 1 tab Nitroglycerin (Nitroglycerin 2% Ointment 30gm Tube) 1 inch EXT Q6H SUSANA Stop: 06/28/22 09:59 Last Admin: 06/01/22 16:59 Dose: 1 inch Ondansetron HCl (Ondansetron Inj 2 Mg/Ml 2 Ml Vial) 4 mg IV Q6H PRN PRN Reason: Nausea Stop: 09/08/22 12:08 Polyethylene Glycol (Polyethylene (Miralax) 17 Gm Pack) 17 gm PO DAILY PRN PRN Reason: Constipation Stop: 06/27/22 12:08 Spironolactone (Spironolactone 25 Mg Tab) 25 mg PO DAILY SUSANA Stop: 07/01/22 08:59 Last Admin: 06/01/22 08:18 Dose: 25 mg (1) Congestive heart failure Heart failure chronicity: acute Heart failure type: diastolic Qualified Code(s): I50.31 - Acute diastolic (congestive) heart failure
[2022-06-01] MEDS: ENOXAPARIN INJ 40 MG/0.4 ML SYR SQ SCH (18:27)
[2022-06-02] MEDS: NITROGLYCERIN 2% OINTMENT 30GM TUBE EXT SCH ×2 (04:52→09:59)
[2022-06-02] MEDS: ENOXAPARIN INJ 40 MG/0.4 ML SYR SQ SCH ×2 (05:54→17:15)
[2022-06-02 06:01] LABS: BUN Creatinine Ratio 28.6 (10-20); Calcium 9.1 mg/dl (8.5-10.1); Creatinine Clr Calc Pharmacy 100.1 ml/min; Est GFR (Non-African American) 65.5 ml/min; Potassium 4.3 mmol/L (3.5-5.1)
[2022-06-02] MEDS: INSULIN ASPART PER UNIT SC SCH ×4 (07:46→20:36)
[2022-06-02] MEDS: LOSARTAN POTASSIUM 50 MG TAB PO SCH (09:58)
[2022-06-02] MEDS: ASPIRIN 81 MG CHEW PO SCH (09:58)
[2022-06-02] MEDS: ASCORBIC ACID 500 MG TAB PO SCH (09:58)
[2022-06-02] MEDS: FUROSEMIDE 40 MG/4 ML VIAL IV SCH ×2 (09:58→17:15)
[2022-06-02] MEDS: SPIRONOLACTONE 25 MG TAB PO SCH (09:58)
[2022-06-02] MEDS: MULTIVITAMIN TAB PO SCH (09:58)
[2022-06-02] MEDS: carvediloL 6.25 MG TAB PO SCH ×2 (09:59→20:17)
--- NOTE | 2022-06-02 11:27 | Cardiology Progress Note ---
Date of Service June 02, 2022 Assessment & Plan (1) Heart failure, diastolic, with acute decompensation: (2) Acute respiratory failure with hypoxia: (3) Hypertensive urgency: (4) Pleural effusion, bilateral: (5) Elevated troponin I level: Plan Continue IV Lasix today. Hold a.m. Lasix pending review of labs 06/03/2022. Monitor daily weight, fluid balance, and GFR. Replace electrolytes as indicated. Discontinue topical nitrates. Continue losartan, carvedilol, aldactone, and aspirin as added on admission. Risk, benefits, alternatives to cardiac catheterization discussed. Patient agreeable. Plan coronary angiography left heart catheterization tomorrow 06/03/2022. N.p.o. except medications after midnight.. All questions answered to patient's satisfaction. Admission and Anticipated Discharge Date Admission Date: May 28, 2022 Subjective Patient seen examined the bedside. Orthopnea improved. Edema nearly resolved. Telemetry reveals sinus rhythm. Denies chest pain or palpitations. Offers no new concerns/complaints. Review of Systems Review of Systems: All systems reviewed & are unremarkable except as noted in Subjective Physical Exam Constitutional: well developed, well nourished and + obese Respiratory: Auscultation: + diminished lung sounds (Bases bilateral) and + rales (Bases bilateral); no rhonchi and no wheezes Cardiovascular: Rate/Rhythm: regular rate and regular rhythm Heart Sounds: normal S1 and normal S2; no murmur Vessels: radial pulses present; no JVD (Difficult to assess in the upright position due to body habitus.) and no carotid bruit Extremities: + edema (1+ bilateral pretibial edema) Gastrointestinal (Abdomen): Inspection/Auscultation: normal bowel sounds; abdomen not distended Percussion/Palpation: abdomen soft; abdomen nontender, no guarding and abdomen not rigid Neurologic: CN's II-XI intact bilaterally and moves all extremities; no focal motor deficits Motor/Sensory: no tremor Psychiatric: A+Ox3, euthymic affect Results & Data ([facility]) Vital Signs (Past 12 Hours) Vital Signs Temp Pulse Resp BP Pulse Ox O2 Del Method O2 Flow Rate 06/02/22 08:18 Nasal Cannula 3 06/02/22 07:20 36.8 C 83 19 140/87 93 Nasal Cannula 3 06/02/22 03:00 36.6 C 81 16 160/92 H 95
--- NOTE | 2022-06-02 14:38 | Hospitalist Progress Note ---
Date of Service June 02, 2022 Assessment & Plan (1) Acute respiratory failure with hypoxia: (2) Congestive heart failure: (3) Hypertensive urgency: (4) Morbid obesity: (5) DMII (diabetes mellitus, type 2): Plan This is a 61 yr old M who has a significant PMH of PE previously on warfarin, hx of volvulus and morbid obesity who presents to ED 2/2 to SOB x few months. Acute hypoxic respiratory failure Acute decompensated heart failure Hypertensive urgency - likely in setting of uncontrolled hypertension SOB improved, chest pain has resolved. Still requiring oxygen supplementation-improved but will likely need oxygen at home. Will perform 2 step at time of discharge. 1.2L net out overnight (fluid) Cont Lasix IV BID and nitro patch A1C is 7.1 and he is obese. New diabetes diagnosis. Cont losartan, coreg, Lasix, nitro and spironolactone. Plan for cardiac cath on Friday. DMII, new onset A1C x 2 over goal. He is not requiring insulin coverage at this time. Cont frequent BSG checks. tank operator saw him. Close PCP follow-up is recommended after discharge. good options for hyperglycemia would be GLP-1 agonist like Trulicity, metformin or Jardiance given his heart failure. will await results of his heart cath in am and discuss more therapeutic options with him afterwards. Morbid obesity consider lifestyle and diet modifications which may be a challenge in setting of heart failure. consult computer systems architect for assistance Hx of PE/DVT ppx: SQ Lovenox Dispo: PCU PCP: none, previously followed Dr. Hurst FULL CODE Mary Redman DO [facility] Hospitalist Admission and Anticipated Discharge Date Admission Date: May 28, 2022 Subjective 61 yo M with acute decompensated heart failure Doing well today. No chest pain, breathing is improving. Fluid balance -1.2 L overnight. Swelling improved in lower body and he is feeling better with the TEDs in place. We discussed his new diagnosis of diabetes. Denies chest pain or SOB Review of Systems Review of Systems: All systems reviewed negative except as indicated above Physical Exam Physical Exam: CONSTITUTIONAL: obese, vitals as above, generally well- appearing, EYES: normal conjunctivae, no scleral icterus, ENT: external ear and nose normal, MMM NECK: trachea midline RESPIRATORY: clear to auscultation bilaterally, no crackles, rales or wheezes, normal respiratory effort CARDIOVASCULAR: regular rate and rhythm, S1 and 2 heard without murmurs, gallops or rubs, no JVD, +1 peripheral edema, CHEST: inspection of chest was normal GASTROINTESTINAL: soft, protuberant, nontender, no guarding MUSCULOSKELETAL: strength 5/5 throughout, head is normocephalic and atraumatic SKIN: warm and dry, NEUROLOGIC: CN 2-12 grossly intact, normal cognition, normal speech, no tremor, no gross focal deficits. PSYCHIATRIC: alert cooperative and oriented to person, place and time. Euthymic mood, makes good eye contact, language grossly intact, recent and remote memory grossly intact. Results & Data Results & Data ([facility]) Vital Signs (Past 12 Hours) Vital Signs Temp Pulse Resp BP Pulse Ox O2 Del Method O2 Flow Rate 06/02/22 12:11 36.6 C 81 19 149/89 H 97 Nasal Cannula 2 06/02/22 08:18 Nasal Cannula 3 06/02/22 07:20 36.8 C 83 19 140/87 93 Nasal Cannula 3 06/02/22 03:00 36.6 C 81 16 160/92 H 95 Laboratory Results [facility] 06/02/22 05:17 Sodium 137 Potassium 4.3 Chloride 97 L Carbon Dioxide 37 H BUN 34 H Creatinine 1.19 Glucose 96 Calcium 9.1 Medications Administered Current Inpatient Medications Acetaminophen (Acetaminophen 325 Mg Tab) 650 mg PO Q4H PRN PRN Reason: Pain or Fever Stop: 06/27/22 12:08 Al Hydrox/Mg Hydrox/Simethicone (Aluminum/Magnesium Susp 30 Ml Udc) 15 ml PO Q4H PRN PRN Reason: Dyspepsia Stop: 06/27/22 12:08 Ascorbic Acid (Ascorbic Acid 500 Mg Tab) 500 mg PO DAILY SUSANA Stop: 06/28/22 08:59 Last Admin: 06/02/22 09:58 Dose: 500 mg Aspirin (Aspirin 81 Mg Chew) 81 mg PO DAILY SUSANA Stop: 06/28/22 08:59 Last Admin: 06/02/22 09:58 Dose: 81 mg Carvedilol (Carvedilol 6.25 Mg Tab) 6.25 mg PO BID SUSANA Stop: 06/28/22 20:59 Last Admin: 06/02/22 09:59 Dose: 6.25 mg Dextrose (Dextrose 50% 50 Ml Syringe) 25 - 50 ml IV UD PRN; Protocol PRN Reason: Hypoglycemia Protocol Stop: 06/27/22 12:28 Enoxaparin Sodium (Enoxaparin Inj 40 Mg/0.4 Ml Syr) 40 mg SQ Q12H SUSANA Stop: 07/01/22 18:14 Last Admin: 06/02/22 05:54 Dose: 40 mg Furosemide (Furosemide 40 Mg/4 Ml Vial) 40 mg IV BID@0900,1600 SUSANA Stop: 06/28/22 17:59 Last Admin: 06/02/22 09:58 Dose: 40 mg Glucagon (Glucagon For Inj 1 Mg Vial) 1 mg SQ UD PRN; Protocol PRN Reason: Hypoglycemia Protocol Stop: 06/27/22 12:28 Glucose (Glucose 10 Tab/Tube) 4 - 8 tab PO UD PRN; Protocol PRN Reason: Hypoglycemia Treatment Stop: 06/27/22 12:28 Glucose (Glucose 40% Gel 15 Gm Tube) 15 - 30 gm PO UD PRN; Protocol PRN Reason: Hypoglycemia Protocol Stop: 06/27/22 12:28 Insulin Aspart (Insulin Aspart Per Unit) 0 units SC ACHS SUSANA Stop: 06/27/22 16:29 Last Admin: 06/02/22 11:58 Dose: Not Given Losartan Potassium (Losartan Potassium 50 Mg Tab) 50 mg PO QAM SUSANA Stop: 06/28/22 08:59 Last Admin: 06/02/22 09:58 Dose: 50 mg Magnesium Hydroxide (Magnesium Hydroxide Susp 30 Ml Udc) 30 ml PO Q12H PRN PRN Reason: Constipation Stop: 06/27/22 12:08 Last Admin: 06/01/22 10:25 Dose: 30 ml Miscellaneous (Carbohydrates For Hypoglycemia ) 15 - 30 gm PO UD PRN PRN Reason: Hypoglycemia Protocol Stop: 06/27/22 12:28 Multivitamins (Multivitamin Tab) 1 tab PO DAILY SUSANA Stop: 06/28/22 08:59 Last Admin: 06/02/22 09:58 Dose: 1 tab Ondansetron HCl (Ondansetron Inj 2 Mg/Ml 2 Ml Vial) 4 mg IV Q6H PRN PRN Reason: Nausea Stop: 06/27/22 12:08 Polyethylene Glycol (Polyethylene (Miralax) 17 Gm Pack) 17 gm PO DAILY PRN PRN Reason: Constipation Stop: 06/27/22 12:08 Spironolactone (Spironolactone 25 Mg Tab) 25 mg PO DAILY SUSANA Stop: 07/01/22 08:59 Last Admin: 06/02/22 09:58 Dose: 25 mg (1) Congestive heart failure Heart failure chronicity: acute Heart failure type: diastolic Qualified Code(s): I50.31 - Acute diastolic (congestive) heart failure
[2022-06-03 05:49] LABS: Hematocrit (blood only) 40.8 % (40.1-51.0); Mean Corpuscular Hemoglobin 27.8 pg (25.0-34.0); Mean Corpuscular Hgb Conc 31.9 g/dL (32.0-36.0); Mean Corpuscular Volume 87.2 fL (80.0-100.0); Mean Platelet Volume 9.9 fL (9.4-12.4); Platelet Count 172 K/uL (130-400); RDW Coefficient of Variation 14.1 % (11.5-14.5); RDW Standard Deviation 44.8 fL (36.4-46.3); Red Blood Count 4.68 M/uL (4.63-6.08); White Blood Count 6.05 K/ul (4.8-10.8)
[2022-06-03] MEDS: ENOXAPARIN INJ 40 MG/0.4 ML SYR SQ SCH ×2 (05:59→18:42)
[2022-06-03 06:15] LABS: BUN Creatinine Ratio 28.6 (10-20); Creatinine Clr Calc Pharmacy 94.3 ml/min; Est GFR (African American) 70.9 ml/min; Est GFR (Non-African American) 61.2 ml/min; Magnesium 2.2 mg/dl (1.7-2.4); Potassium 4.4 mmol/L (3.5-5.1)
[2022-06-03] MEDS: INSULIN ASPART PER UNIT SC SCH ×4 (08:24→20:03)
[2022-06-03] MEDS: MULTIVITAMIN TAB PO SCH (08:25)
[2022-06-03] MEDS: SPIRONOLACTONE 25 MG TAB PO SCH (08:25)
[2022-06-03] MEDS: ASCORBIC ACID 500 MG TAB PO SCH (08:25)
[2022-06-03] MEDS: LOSARTAN POTASSIUM 50 MG TAB PO SCH (08:25)
[2022-06-03] MEDS: carvediloL 6.25 MG TAB PO SCH ×2 (08:25→20:03)
[2022-06-03] MEDS: ASPIRIN 81 MG CHEW PO SCH (08:29)
--- NOTE | 2022-06-03 10:51 | Cardiology Progress Note ---
Date of Service June 03, 2022 Assessment & Plan (1) Heart failure, diastolic, with acute decompensation: (2) Acute respiratory failure with hypoxia: (3) Hypertensive urgency: (4) Pleural effusion, bilateral: (5) Elevated troponin I level: Plan We will proceed with cardiac catheterization today. Risk, benefits, alternatives discussed. Patient agreeable. Hold Lasix today monitor daily weight, fluid balance, and GFR. Replace electrolytes as indicated. Continue losartan, carvedilol, aldactone, and aspirin.. Admission and Anticipated Discharge Date Admission Date: May 28, 2022 Subjective Patient seen and examined at the bedside. Fluid balance -900 cc. Renal function remained stable. Feeling better from a cardiovascular perspective. No orthopnea overnight. Telemetry reveals sinus rhythm. Denies chest pain or shortness of breath. Review of Systems Review of Systems: All systems reviewed & are unremarkable except as noted in Subjective Physical Exam Constitutional: well developed, well nourished and + obese Respiratory: Auscultation: + diminished lung sounds (Bases bilateral) and + rales (Bases bilateral); no rhonchi and no wheezes Cardiovascular: Rate/Rhythm: regular rate and regular rhythm Heart Sounds: normal S1 and normal S2; no murmur Vessels: radial pulses present; no JVD (Difficult to assess in the upright position due to body habitus.) and no carotid bruit Extremities: + edema (1+ bilateral pretibial edema) Gastrointestinal (Abdomen): Inspection/Auscultation: normal bowel sounds; abdomen not distended Percussion/Palpation: abdomen soft; abdomen nontender, no guarding and abdomen not rigid Neurologic: CN's II-XI intact bilaterally and moves all extremities; no focal motor deficits Motor/Sensory: no tremor Psychiatric: A+Ox3, euthymic affect Results & [facility] ([facility]) Vital Signs (Past 12 Hours) Vital Signs Temp Pulse Pulse Resp BP Pulse Ox O2 Del Method 06/03/22 08:17 36.4 C L 82 19 158/94 H 97 Nasal Cannula 06/03/22 04:41 36.9 C 88 16 140/93 93 Nasal Cannula 06/02/22 23:00 75 06/02/22 23:58 36.9 C 79 16 148/75 H 95 Nasal Cannula O2 Flow Rate 06/03/22 08:17 3.0 06/03/22 04:41 3 06/02/22 23:00 06/02/22 23:58 3
--- NOTE | 2022-06-03 10:52 | Pre Anesthesia Assessment ---
Date of Service June 03, 2022 Pre Sedation Assessment Vital Signs Temp Pulse Pulse Resp BP BP Pulse Ox 06/04/22 13:02 06/04/22 06:30 36.5 C 82 20 139/79 95 06/04/22 08:00 80 06/04/22 08:00 06/04/22 08:00 37.0 C 94 H 20 152/72 H 96 06/04/22 06:39 80 156/90 H 06/04/22 00:00 81 06/04/22 04:00 36.6 C 81 18 165/93 H 96 06/03/22 23:00 36.6 C 82 18 136/83 97 06/03/22 20:10 06/03/22 19:36 36.4 C L 83 18 157/85 H 97 06/03/22 18:10 36.5 C 83 16 138/84 95 06/03/22 17:10 36.4 C L 86 20 93 06/03/22 16:25 36.3 C L 81 20 164/93 H 94 06/03/22 15:55 36.5 C 80 20 156/92 H 92 06/03/22 15:25 36.4 C L 82 18 152/87 H 92 06/03/22 15:10 36.4 C L 85 18 159/78 H 91 06/03/22 14:55 36.3 C L 85 16 161/96 H 90 Pulse Ox Pulse Ox Pulse Ox O2 Del Method O2 Flow Rate O2 Flow Rate O2 Flow Rate 06/04/22 13:02 93 95 89 L 4 4 06/04/22 06:30 06/04/22 08:00 06/04/22 08:00 Nasal Cannula 4 06/04/22 08:00 06/04/22 06:39 06/04/22 00:00 06/04/22 04:00 Oxymask 4 06/03/22 23:00 Nasal Cannula 06/03/22 20:10 Nasal Cannula 3 06/03/22 19:36 Nasal Cannula 4 06/03/22 18:10 4 06/03/22 17:10 Nasal Cannula 7 06/03/22 16:25 Nasal Cannula 7.0 06/03/22 15:55 Nasal Cannula 7.0 06/03/22 15:25 Nasal Cannula 7.0 06/03/22 15:10 High Flow Nasal Cannula 7 06/03/22 14:55 Nasal Cannula 6 O2 Flow Rate 06/04/22 13:02 4 06/04/22 06:30 06/04/22 08:00 06/04/22 08:00 06/04/22 08:00 06/04/22 06:39 06/04/22 00:00 06/04/22 04:00 06/03/22 23:00 06/03/22 20:10 06/03/22 19:36 06/03/22 18:10 06/03/22 17:10 06/03/22 16:25 06/03/22 15:55 06/03/22 15:25 06/03/22 15:10 06/03/22 14:55 Cardiovascular + regular rate and + regular rhythm + S1 normal and + S2 normal; no murmur + femoral pulses present and + radial pulses present; no JVD and no carotid bruit + edema (Trace to mild bilateral pedal edema with stasis changes.) Respiratory + respiratory effort normal; no respiratory distress, no labored breathing and no retractions + clear to auscultation bilaterally; no crackles, no rales, no rhonchi and no wheezes Pre-Sedation Airway Assessment Smoking Status: Former smoker Mallampati Class: III ASA: ASA3 NPO Status Date of Last Intake of Fluids: 06/03/22 Date of Last Intake of Solid Food: 06/02/22 Procedure Planning Contraindications for Sedation: none Current Medications Reviewed: Yes Notes The planned sedation has been discussed with the patient. Informed Consent was obtained. I have identified the patient, determined the appropriateness of sedation and have assessed the patient immediately prior to the procedure. All medicine(s) and interventions are by my order.
[2022-06-03] MEDS ORDERED: MIDAZOLAM HCL 1 MG/ML 2ML VIAL ONE (12:41)
[2022-06-03] MEDS ORDERED: HEPARIN (PORCINE) 1000 UNIT/ML 10 ML (CATH LAB USE ONLY) ONE (12:41)
[2022-06-03] MEDS ORDERED: fentaNYL citrate 100 MCG/2 ML VIAL ONE (12:41)
[2022-06-03] MEDS ORDERED: niCARdipine HCL INJ 2.5 MG/ML 10 ML AMP ONE (12:41)
[2022-06-03] MEDS ORDERED: NITROGLYCERIN/D5W 100MCG/ML 20ML SYR ONE (12:42)
[2022-06-03] MEDS ORDERED: ADENOSINE IV SOLN 3 MG/ML 20 ML VIAL IV ONE ×3 (13:26→13:31)
[2022-06-03] MEDS ORDERED: CLOPIDOGREL BISULFATE 300 MG TAB ONE (14:08)
--- NOTE | 2022-06-03 14:20 | Post Anesthesia Assessment ---
Date of Service June 03, 2022 Post Sedation Assessment Vital Signs Temp Pulse Pulse Resp BP BP Pulse Ox 06/04/22 13:02 06/04/22 06:30 36.5 C 82 20 139/79 95 06/04/22 08:00 80 06/04/22 08:00 06/04/22 08:00 37.0 C 94 H 20 152/72 H 96 06/04/22 06:39 80 156/90 H 06/04/22 00:00 81 06/04/22 04:00 36.6 C 81 18 165/93 H 96 06/03/22 23:00 36.6 C 82 18 136/83 97 06/03/22 20:10 06/03/22 19:36 36.4 C L 83 18 157/85 H 97 06/03/22 18:10 36.5 C 83 16 138/84 95 06/03/22 17:10 36.4 C L 86 20 93 06/03/22 16:25 36.3 C L 81 20 164/93 H 94 06/03/22 15:55 36.5 C 80 20 156/92 H 92 06/03/22 15:25 36.4 C L 82 18 152/87 H 92 06/03/22 15:10 36.4 C L 85 18 159/78 H 91 06/03/22 14:55 36.3 C L 85 16 161/96 H 90 Pulse Ox Pulse Ox Pulse Ox O2 Del Method O2 Flow Rate O2 Flow Rate O2 Flow Rate 06/04/22 13:02 93 95 89 L 4 4 06/04/22 06:30 06/04/22 08:00 06/04/22 08:00 Nasal Cannula 4 06/04/22 08:00 06/04/22 06:39 06/04/22 00:00 06/04/22 04:00 Oxymask 4 06/03/22 23:00 Nasal Cannula 06/03/22 20:10 Nasal Cannula 3 06/03/22 19:36 Nasal Cannula 4 06/03/22 18:10 4 06/03/22 17:10 Nasal Cannula 7 06/03/22 16:25 Nasal Cannula 7.0 06/03/22 15:55 Nasal Cannula 7.0 06/03/22 15:25 Nasal Cannula 7.0 06/03/22 15:10 High Flow Nasal Cannula 7 06/03/22 14:55 Nasal Cannula 6 O2 Flow Rate 06/04/22 13:02 4 06/04/22 06:30 06/04/22 08:00 06/04/22 08:00 06/04/22 08:00 06/04/22 06:39 06/04/22 00:00 06/04/22 04:00 06/03/22 23:00 06/03/22 20:10 06/03/22 19:36 06/03/22 18:10 06/03/22 17:10 06/03/22 16:25 06/03/22 15:55 06/03/22 15:25 06/03/22 15:10 06/03/22 14:55 Recovery Score Respiration: Deep Breath/Cough Circulation: +/-20% PreAnes Value Consciousness: Arouseable (by name) Oxygen Saturation: O2 needed for >90% Discharge Sedation Level of Care: Phase I Post Sedation Plan On clinical assessment, the patient appears to have tolerated the sedation without complications. Patient is recovering as anticipated. Patient will continue to be monitored by nursing and may be discharged when sedation discharge criteria are met per below protocol. Upon Completions of procedure up to 15 minutes continue every 5 minute vital signs and the P.A.R. score; then discharge to a Phase I or Fast Track to Phase II per the following guidelines: * Discharge Patient to appropriate Phase II area if PAR is 8 or greater or return to pre- procedure baseline. The post - procedure orders will be as directed. * If PAR score is less than 8 or not return to pre-procedure baseline then patient will follow Phase I monitoring till PAR is reached for Phase II. The Phase I may be done in procedure room or may call to secure a Phase I area. * If naloxone or flumazenil are used for reversal, hold in Phase I for continued monitoring from when last reversal dose was given for a minimum of 60 minutes or longer pending the nurse and/or physician discretion of patient condition before discharge to Phase II. Please call the Sedation Physician to re-evaluate and complete post-note for discharge to Phase II area. Do NOT discharge from procedure sedation or Phase 1 until post- sedation evaluation note is complete by procedure /sedation MD Sedation Discharge Instructions to be given to the patient at discharge to home.
--- NOTE | 2022-06-03 14:23 | Post Anesthesia Assessment ---
Date of Service June 03, 2022 Post Sedation Assessment Vital Signs Temp Pulse Pulse Pulse Pulse Pulse Pulse 06/03/22 11:53 97.7 F 83 06/03/22 06:08 80 06/03/22 08:00 06/03/22 11:08 81 88 82 83 06/03/22 08:17 97.5 F L 82 06/03/22 04:41 98.4 F 88 06/02/22 23:00 75 06/02/22 23:58 98.4 F 79 06/02/22 20:45 06/02/22 19:00 98.2 F 78 06/02/22 16:58 97.9 F 81 Resp Resp Resp Resp Resp BP Pulse Ox 06/03/22 11:53 19 124/79 93 06/03/22 06:08 06/03/22 08:00 06/03/22 11:08 22 22 20 18 06/03/22 08:17 19 158/94 H 97 06/03/22 04:41 16 140/93 93 06/02/22 23:00 06/02/22 23:58 16 148/75 H 95 06/02/22 20:45 06/02/22 19:00 18 161/95 H 99 06/02/22 16:58 20 146/78 H 95 Pulse Ox Pulse Ox Pulse Ox Pulse Ox O2 Del Method O2 Flow Rate O2 Flow Rate 06/03/22 11:53 Room Air 06/03/22 06:08 06/03/22 08:00 Room Air 06/03/22 11:08 94 86 L 91 93 2 06/03/22 08:17 Nasal Cannula 3.0 06/03/22 04:41 Nasal Cannula 3 06/02/22 23:00 06/02/22 23:58 Nasal Cannula 3 06/02/22 20:45 Nasal Cannula 3 06/02/22 19:00 06/02/22 16:58 Nasal Cannula 2 Recovery Score Activity: Moves 4 extremities Respiration: Deep Breath/Cough Circulation: +/-20% PreAnes Value Consciousness: Arouseable (by name) Oxygen Saturation: O2 needed for >90% Discharge Sedation Level of Care: Fast Track Phase II Post Sedation Plan On clinical assessment, the patient appears to have tolerated the sedation without complications. Patient is recovering as anticipated. Patient will continue to be monitored by nursing and may be discharged when sedation discharge criteria are met per below protocol. Upon Completions of procedure up to 15 minutes continue every 5 minute vital signs and the P.A.R. score; then discharge to a Phase I or Fast Track to Phase II per the following guidelines: * Discharge Patient to appropriate Phase II area if PAR is 8 or greater or return to pre- procedure baseline. The post - procedure orders will be as directed. * If PAR score is less than 8 or not return to pre-procedure baseline then patient will follow Phase I monitoring till PAR is reached for Phase II. The Phase I may be done in procedure room or may call to secure a Phase I area. * If naloxone or flumazenil are used for reversal, hold in Phase I for continued monitoring from when last reversal dose was given for a minimum of 60 minutes or longer pending the nurse and/or physician discretion of patient condition before discharge to Phase II. Please call the Sedation Physician to re-evaluate and complete post-note for discharge to Phase II area. Do NOT discharge from procedure sedation or Phase 1 until post- sedation evaluation note is complete by procedure /sedation MD Sedation Discharge Instructions to be given to the patient at discharge to home.
--- NOTE | 2022-06-03 14:30 | Post Operative Brief Note ---
Cardiology Brief Post Op Date of Surgery June 03, 2022 Pre & Post Diagnosis CAD Procedure FFR of LAD (negative) PCI of mid LCx into OM with CHUCKY (3.0 x 15 [place]; post-dilated with 3.5 NC). Key Operator Corey Hein MD Director Of Scientific Research [employer] Estimated Blood Loss 10 Findings Consistent with Post-Op Diagnosis Anesthesia Type RN Sedation Disposition Accompanied Patient To Recovery: No Disposition: PCU Overlapping Procedure I was present for: the critical portions of procedure. I was immediately available: during the entire case. Back up surgeon: was not required during procedure.
--- NOTE | 2022-06-03 14:48 | Cardiac Catheterization ---
Cardiac Cath Procedure Full Procedure Date June 03, 2022 Pre-Procedure Diagnosis Pre-Procedure Diagnosis: CHF AUC Score AUC Score: 7 Post-Procedure Diagnosis Post-Procedure Diagnosis: Severe CAD and Elevated Intracardiac Pressures Procedure(s) Performed Procedure(s) Performed: Coronary Angiography and Left Heart Cath [place] History Professor Khalif Cuello DO Assembly Department Supervisor(s) Deibler RTR Estimated Blood Loss Estimated Blood Loss: 5cc Medication(s) Medication(s): Fentanyl, Heparin, Lidocaine 1%, Nicardipine, Nitroglycerin and Versed Summary of Findings 80% mid Lcx 100% mid RCA 40% distal Left main 40% ostial/proximal LAD (FFR negative, see separate report) 90% mid D2 (small vessel) Hemodynamics Rest Ao:: 125/71/97 Final Ao: 151/81/108 LV: 146/14/32 Recommendations Recommendations: Management Recommendatons (FFR of proximal LAD, If negative proceed with PCI of Lcx and medical management of RCA and branch vessel disease) Radiation Exposure (mGy) 2035 Contrast (mls) 130 Fluids (cc crystalloids) Fluids (cc crystalloids): 70 Nss Drains Drains: N/A Anesthesia Moderate sedation, Start 1254. End 1338. Sedation monitor Osmar BUSTAMANTE Procedural Complication(s) None Disposition PCU I attest to the content of the Intraoperative Record and any orders documented therein. Any exceptions are noted below. 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 Elevated troponin noted. CAD Presenation: Non STEMI Anginal Classification: CCS III Heart Failure: Yes Cardiogenic Shock within 24 Hours: No Cardiac Arrest within 24 Hours: No Imaging Studies Past 6 Months: No Stress Studies Past 6 Months: No Cardiac CTA: No STEMI OR Non-STEMI Symptom Onset Date: 05/28/22 Thrombolytics: No Coronary Anatomy Dominant: Right Left Main (% Stenosis): Distal (40%) LAD (% Stenosis): Ostial (40%, appears 'hazy' in limited views), Proximal (30%) and Mid (Moderate diffuse luminal irregularities with stenosis ranging up to 30%.) D1 (% Stenosis): Ostial (30% small vessel), Proximal (Diffuse moderate luminal irregularities, 30-40%) and Mid (Diffuse moderate luminal irregularities, 30- 40%) D2 (% Stenosis): Mid (90%, small vessel) Circumflex (% Stenosis): Proximal (20%) and Mid (30% early mid followed by 80% bifurcation lesion) OM1 (% Stenosis): Ostial (30% small vessel) OM2 (% Stenosis): Ostial (30% taper, large vessel) and Mid (30%, tortuous) OM3 (% Stenosis): Normal (Small vessel) L PL1 (% Stenosis): Mid (Luminal irregularities, 20%, small vessel) L PL2 (% Stenosis): Mid (Luminal irregularities, 20%, small vessel) RCA (% Stenosis): Mid (100%) R PDA (% Stenosis): Proximal (Poorly visualized via left to right collaterals) AM (% Stenosis): Mid (Luminal irregularities, 10%) Diagnostic Physicians Name: Khalif Cuello DO Closure Device Percutaneous Entry Location: Radial Closure Device: Radial Band Recommendations: Management Recommendatons (FFR of proximal LAD, If negative proceed with PCI of Lcx and medical management of RCA and branch vessel disease) Intraprocedure Events Significant Disection: No Perforation: No
--- NOTE | 2022-06-03 18:41 | Cardiac Catheterization ---
ACC Data: Paraplanner Cardiac Status Clinical evaluation leading to the procedure CAD Presenation: Non STEMI Anginal Classification: CCS III Diagnostic Physicians Name: Corey Hein MD Closure Device Recommendations: PCI without planned CABG Cardiac Cath Procedure Full Procedure Date June 03, 2022 Pre-Procedure Diagnosis Pre-Procedure Diagnosis: CAD and CHF AUC Score AUC Score: 7 Post-Procedure Diagnosis Post-Procedure Diagnosis: Severe CAD and Successful PCI Procedure(s) Performed Procedure(s) Performed: Coronary Angiography, Drug Eluting Stent and Fractional Flow [place] Diesel Scoop Operator Corey Hein MD Band Reamer Machine Operator(s) Deibler RTR Estimated Blood Loss Estimated Blood Loss: 15 Medication(s) Medication(s): Clopidogrel, Fentanyl, Heparin, Lidocaine 1%, Nicardipine, Nitroglycerin and Versed Summary of Findings Indication: Acute heart failure, dyspnea on exertion, elevated troponin Access: 6 Fr right radial artery Catheters: EBU 3.5 guide Findings: For full details of patient's coronary angiography please see cath report dic tated by Dr. Cuello. Briefly, patient found to have an occluded RCA with [id number] collaterals, severe mid circumflex stenosis and a intermediate ostial LAD stenosis. Decision to FFR LAD and proceed with PCI of circumflex if LAD FFR negative Procedure: -Left main cannulated with EBU 3.5 guide -Atv Mechanic 50 wire placed into distal LAD -ACIST Catheter placed across stenosis -Pd/Pa 0.95 -FFR 0.89 -- PCI -- Antithrombotic therapy: Heparin, clopidogrel Pre-procedure flow JONATHON 3 Atv Mechanic 50 wire redirected from LAD into circumflex and passed across lesion into distal OM Mid circumflex lesion predilated with 2.5 compliant balloon Dilated lesion stented with 3.0 x 15 mm [place] drug-eluting stent Stent post-dilated with 3.5 noncompliant balloon IC vasodilators administered for spasm Post procedure JONATHON 3 flow, stent well expanded with minimal residual stenosis and no apparent cardiac complications. Arterial Closure: TR band Summary: 1. Moderate nonobstructive ostial LAD disease (FFR 0.89) 2. Successful PCI of mid circumflex into OM 2 with single drug-eluting stent (3.0 x 15 mm [place]; postdilated with 3.5 NC). Recommendations: To PCU for continued monitoring Loaded with clopidogrel 600 mg in Paraplanner Continue dual-antiplatelet therapy for at least a year Consult cardiac Rehab Hemodynamics Rest Ao:: 155/82/113 Final Ao: 137/71/100 LV: -- Recommendations Recommendations: PCI without planned CABG Specimens Specimens: None Radiation Exposure (mGy) 3855 Contrast (mls) 150 Anesthesia Moderate sedation, Start 1338. End 1409. Procedural Complication(s) None Disposition PCU I attest to the content of the Intraoperative Record and any orders documented therein. Any exceptions are noted below. [facility] Card Cath Procedure Codes Cardiac Catheterization Procedure 1: Cardiovascular Cath Procedures: 70415 (Doppler) Pressure Wire Moderate Sedation Procedure 1: Sedation/Anesthesia: 19823 Mod Sedation by the same physician;Init15 Min Child Age 5 & Up Stenting Procedure 1: Cardiovascular Stent Procedures: 54580 Perc transcatheter placement of intracoronary stent(s), with ang PG Care Time/CCT Total # of Minutes Spent Total Time Spent with Patient: Total time spent is greater than 50% in coordination of care (as documented) at patient's floor/unit and/or counseling patient:
--- NOTE | 2022-06-03 19:52 | Hospitalist Progress Note ---
Date of Service June 03, 2022 Assessment & Plan (1) Acute respiratory failure with hypoxia: (2) Congestive heart failure: (3) Hypertensive urgency: (4) Morbid obesity: (5) DMII (diabetes mellitus, type 2): Plan This is a 61 yr old M who has a significant PMH of PE previously on warfarin, hx of volvulus and morbid obesity who presents to ED 2/2 to SOB x few months. Acute hypoxic respiratory failure Acute decompensated heart failure Hypertensive urgency - likely in setting of uncontrolled hypertension SOB improved, chest pain has resolved. Still requiring oxygen supplementation-improved but will likely need oxygen at home. 2 step today too set up oxygen for home 1L net out overnight (fluid) Cont current medical therapy Awaiting cardiac cath later today. DMII, new onset A1C x 2 over goal. He is not requiring insulin coverage at this time. Cont frequent BSG checks. medical educator saw him. Close PCP follow-up is recommended after discharge. good options for hyperglycemia would be GLP-1 agonist like Trulicity, metformin or Jardiance given his heart failure. will await results of his heart cath and discuss more therapeutic options with him afterwards. Morbid obesity consider lifestyle and diet modifications which may be a challenge in setting of heart failure. consult absorption plant operator helper for assistance Hx of PE/DVT ppx: SQ Lovenox Dispo: PCU PCP: none, previously followed Dr. Hurst FULL CODE DO [facility] Hospitalist Admission and Anticipated Discharge Date Admission Date: May 28, 2022 Subjective 61 yo M with acute decompensated heart failure Doing well today. No chest pain, breathing is improving. Fluid balance -900cc overnight. Denies chest pain or SOB Awaiting heart cath later today Setting him up for home oxygen Review of Systems Review of Systems: All systems reviewed negative except as indicated above Physical Exam Physical Exam: CONSTITUTIONAL: obese, vitals as above, generally well- appearing, EYES: normal conjunctivae, no scleral icterus, ENT: external ear and nose normal, MMM NECK: trachea midline RESPIRATORY: clear to auscultation bilaterally, no crackles, rales or wheezes, normal respiratory effort CARDIOVASCULAR: regular rate and rhythm, S1 and 2 heard without murmurs, gallop s or rubs, no JVD, no peripheral edema, CHEST: inspection of chest was normal GASTROINTESTINAL: soft, protuberant, nontender, no guarding MUSCULOSKELETAL: strength 5/5 throughout, head is normocephalic and atraumatic SKIN: warm and dry, NEUROLOGIC: CN 2-12 grossly intact, normal cognition, normal speech, no tremor, no gross focal deficits. PSYCHIATRIC: alert cooperative and oriented to person, place and time. Euthymic mood, makes good eye contact, language grossly intact, recent and remote memory grossly intact. Results & Data Results & Data ([facility]) Vital Signs (Past 12 Hours) Vital Signs Temp Pulse Pulse Pulse Pulse Pulse Resp 06/03/22 19:36 36.4 C L 83 18 06/03/22 18:10 36.5 C 83 16 06/03/22 17:10 36.4 C L 86 20 06/03/22 16:25 36.3 C L 81 20 06/03/22 15:55 36.5 C 80 20 06/03/22 15:25 36.4 C L 82 18 06/03/22 15:10 36.4 C L 85 18 06/03/22 14:55 36.3 C L 85 16 06/03/22 11:53 36.5 C 83 19 06/03/22 08:00 06/03/22 11:08 81 88 82 83 06/03/22 08:17 36.4 C L 82 19 Resp Resp Resp Resp BP BP Pulse Ox 06/03/22 19:36 157/85 H 97 06/03/22 18:10 138/84 95 06/03/22 17:10 93 06/03/22 16:25 164/93 H 94 06/03/22 15:55 156/92 H 92 06/03/22 15:25 152/87 H 92 06/03/22 15:10 159/78 H 91 06/03/22 14:55 161/96 H 90 06/03/22 11:53 124/79 93 06/03/22 08:00 06/03/22 11:08 22 22 20 18 06/03/22 08:17 158/94 H 97 Pulse Ox Pulse Ox Pulse Ox Pulse Ox O2 Del Method O2 Flow Rate O2 Flow Rate 06/03/22 19:36 Nasal Cannula 4 06/03/22 18:10 4 06/03/22 17:10 Nasal Cannula 7 06/03/22 16:25 Nasal Cannula 7.0 06/03/22 15:55 Nasal Cannula 7.0 06/03/22 15:25 Nasal Cannula 7.0 06/03/22 15:10 High Flow Nasal Cannula 7 06/03/22 14:55 Nasal Cannula 6 06/03/22 11:53 Room Air 06/03/22 08:00 Room Air 06/03/22 11:08 94 86 L 91 93 2 06/03/22 08:17 Nasal Cannula 3.0 Laboratory Results Short CBC 06/03/22 Range/Units 05:26 WBC 6.05 (4.8-10.8) K/ul Hgb 13.0 L (14.0-18.0) g/dl Hct 40.8 (40.1-51.0) % Plt Count 172 (130-400) K/uL BMP 06/03/22 05:26 Sodium 138 Potassium 4.4 Chloride 97 L Carbon Dioxide 38 H BUN 36 H Creatinine 1.26 Glucose 102 H Calcium 9.0 Medications Administered Current Inpatient Medications Acetaminophen (Acetaminophen 325 Mg Tab) 650 mg PO Q4H PRN PRN Reason: Pain or Fever Stop: 06/27/22 12:08 Al Hydrox/Mg Hydrox/Simethicone (Aluminum/Magnesium Susp 30 Ml Udc) 15 ml PO Q4H PRN PRN Reason: Dyspepsia Stop: 06/27/22 12:08 Ascorbic Acid (Ascorbic Acid 500 Mg Tab) 500 mg PO DAILY [facility] Stop: 06/28/22 08:59 Last Admin: 06/03/22 08:25 Dose: 500 mg Aspirin (Aspirin 81 Mg Chew) 81 mg PO DAILY [facility] Stop: 06/28/22 08:59 Last Admin: 06/03/22 08:29 Dose: 81 mg Carvedilol (Carvedilol 6.25 Mg Tab) 6.25 mg PO BID [facility] Stop: 06/28/22 20:59 Last Admin: 06/03/22 08:25 Dose: 6.25 mg Clopidogrel Bisulfate (Clopidogrel Bisulfate 75 Mg Tab) 75 mg PO QAM [facility] Stop: 07/04/22 08:59 Dextrose (Dextrose 50% 50 Ml Syringe) 25 - 50 ml IV UD PRN; Protocol PRN Reason: Hypoglycemia Protocol Stop: 06/27/22 12:28 Enoxaparin Sodium (Enoxaparin Inj 40 Mg/0.4 Ml Syr) 40 mg SQ Q12H [facility] Stop: 07/01/22 18:14 Last Admin: 06/03/22 18:42 Dose: 40 mg Furosemide (Furosemide 40 Mg/4 Ml Vial) 40 mg IV BID@0900,1600 [facility] Stop: 06/28/22 17:59 Last Admin: 06/02/22 17:15 Dose: 40 mg Glucagon (Glucagon For Inj 1 Mg Vial) 1 mg SQ UD PRN; Protocol PRN Reason: Hypoglycemia Protocol Stop: 06/27/22 12:28 Glucose (Glucose 10 Tab/Tube) 4 - 8 tab PO UD PRN; Protocol PRN Reason: Hypoglycemia Treatment Stop: 06/27/22 12:28 Glucose (Glucose 40% Gel 15 Gm Tube) 15 - 30 gm PO UD PRN; Protocol PRN Reason: Hypoglycemia Protocol Stop: 06/27/22 12:28 Insulin Aspart (Insulin Aspart Per Unit) 0 units SC ACHS [facility] Stop: 06/27/22 16:29 Last Admin: 06/03/22 17:51 Dose: Not Given Losartan Potassium (Losartan Potassium 50 Mg Tab) 50 mg PO QAM [facility] Stop: 06/28/22 08:59 Last Admin: 06/03/22 08:25 Dose: 50 mg Magnesium Hydroxide (Magnesium Hydroxide Susp 30 Ml Udc) 30 ml PO Q12H PRN PRN Reason: Constipation Stop: 06/27/22 12:08 Last Admin: 06/01/22 10:25 Dose: 30 ml Miscellaneous (Carbohydrates For Hypoglycemia ) 15 - 30 gm PO UD PRN PRN Reason: Hypoglycemia Protocol Stop: 06/27/22 12:28 Multivitamins (Multivitamin Tab) 1 tab PO DAILY [facility] Stop: 06/28/22 08:59 Last Admin: 06/03/22 08:25 Dose: 1 tab Ondansetron HCl (Ondansetron Inj 2 Mg/Ml 2 Ml Vial) 4 mg IV Q6H PRN PRN Reason: Nausea Stop: 06/27/22 12:08 Polyethylene Glycol (Polyethylene (Miralax) 17 Gm Pack) 17 gm PO DAILY PRN PRN Reason: Constipation Stop: 06/27/22 12:08 Spironolactone (Spironolactone 25 Mg Tab) 25 mg PO DAILY [facility] Stop: 07/01/22 08:59 Last Admin: 06/03/22 08:25 Dose: 25 mg (1) Congestive heart failure Heart failure chronicity: acute Heart failure type: diastolic Qualified Code(s): I50.31 - Acute diastolic (congestive) heart failure
[2022-06-04] MEDS: ENOXAPARIN INJ 40 MG/0.4 ML SYR SQ SCH (05:56)
[2022-06-04 06:16] LABS: Hematocrit (blood only) 44.2 % (40.1-51.0); Hemoglobin 13.7 g/dl (14.0-18.0); Mean Corpuscular Hemoglobin 27.5 pg (25.0-34.0); Mean Corpuscular Volume 88.8 fL (80.0-100.0); Mean Platelet Volume 10.2 fL (9.4-12.4); Platelet Count 182 K/uL (130-400); RDW Coefficient of Variation 14.2 % (11.5-14.5); RDW Standard Deviation 45.6 fL (36.4-46.3); Red Blood Count 4.98 M/uL (4.63-6.08); White Blood Count 6.32 K/ul (4.8-10.8)
[2022-06-04 06:37] LABS: BUN Creatinine Ratio 27.7 (10-20); Creatinine Clr Calc Pharmacy 99.8 ml/min; Est GFR (Non-African American) 65.5 ml/min; Potassium 4.5 mmol/L (3.5-5.1)
[2022-06-04] MEDS: INSULIN ASPART PER UNIT SC SCH ×2 (07:54→12:03)
[2022-06-04] MEDS ORDERED: CLOPIDOGREL BISULFATE 75 MG TAB PO SCH (09:00)
[2022-06-04] MEDS: SPIRONOLACTONE 25 MG TAB PO SCH (09:03)
[2022-06-04] MEDS: MULTIVITAMIN TAB PO SCH (09:03)
[2022-06-04] MEDS: LOSARTAN POTASSIUM 50 MG TAB PO SCH (09:03)
[2022-06-04] MEDS: carvediloL 6.25 MG TAB PO SCH (09:03)
[2022-06-04] MEDS: ASCORBIC ACID 500 MG TAB PO SCH (09:03)
[2022-06-04] MEDS ORDERED: ASPIRIN 81 MG ECTAB PO SCH (09:45)
[2022-06-04] MEDS: FUROSEMIDE 40 MG/4 ML VIAL IV SCH (10:26)
[2022-06-04] MEDS ORDERED: carvediloL 6.25 MG TAB PO ONE (11:00)
--- NOTE | 2022-06-04 14:08 | Discharge Summary ---
Date of Service June 04, 2022 Admission HPI Per Admitting Provider This is a 61 yr old M who has a significant PMH of PE previously on warfarin, hx of volvulus and morbid obesity who presents to ED 2/2 to SOB x few months. Of note he previously followed with [facility] PCP Dr. Hurst; however, has not followed up since 2010. He has been having worsening STARR that has been progressive over the last several months. He complains of worsening leg swelling over the last few months. He has been using OTC meds to try to help, including Aleve/ibuprofen. This didn't seem to help. He generally feels his swelling is all over including hands and abdomen. He occasionally would get a short lasting pain on left side of chest when he would exert himself. It would only last seconds and resolve on own. Nothing made better/worse. He also had occasional palpitations and feeling of, "heart racing." He denies any f/c/s, dizziness, lightheaded, syncope, URI sx, cough, hemoptysis, n/v/d, or abdominal pain. He has fallen 3 times in this past year. Last fall was 3 days ago. All 3 times he lost his balance. He denies LOC or hitting his head. He feel his legs are generally weak from the swelling. He has no known injury but did have a buttock bruise. He did not seek any medical care after falls. He states, "I'm stubborn and previously tried to heal myself." He denies hx of HTN, HLD or DM. He has hx of PE and was on warfarin. He has hx of volvulus s/p colectomy in 2008. Principal Diagnosis Acute respiratory failure with hypoxia Acute decompensated diastolic heart failure CAD status post stent placement this admission Hypertensive urgency Morbid obesity Diabetes myelitis type II Discharge Exam CONSTITUTIONAL: obese, vitals as above, generally well-appearing, EYES: normal conjunctivae, no scleral icterus, ENT: external ear and nose normal, MMM NECK: trachea midline RESPIRATORY: clear to auscultation bilaterally, no crackles, rales or wheezes, normal respiratory effort CARDIOVASCULAR: regular rate and rhythm, S1 and 2 heard without murmurs, gallops or rubs, no JVD, no peripheral edema, CHEST: inspection of chest was normal GASTROINTESTINAL: soft, protuberant, nontender, no guarding MUSCULOSKELETAL: strength 5/5 throughout, head is normocephalic and atraumatic SKIN: warm and dry, NEUROLOGIC: CN 2-12 grossly intact, normal cognition, normal speech, no tremor, no gross focal deficits. PSYCHIATRIC: alert cooperative and oriented to person, place and time. Euthymic mood, makes good eye contact, language grossly intact, recent and remote memory grossly intact. Discharge Data Allergies Allergy/AdvReac Type Severity Reaction Status Date / Time small pox vaccine Allergy Severe edema Uncoded 05/28/22 10:06 Consultations 05/28/22 09:32 ED Decision to Admit Stat 05/28/22 10:17 Consult Cardiology Routine 06/03/22 14:26 Consult Cardiac Rehabilitation Routine Procedures Performed Operation Date: 06/03/22 12:00 Actual Procedures p Cath, Left with Cors and Vent - Khalif Cuello DO s Cineradiography w/Routine Exam - Khalif Cuello, DO p Fraction Flow [place] SGL Ves - Tobin Hein MD s Drug Eluting Stent SGl Vessel - Tobin Hein MD Ordered Studies 05/28/22 07:50 CT angio chest PE protocol Stat 06/03/22 07:12 CL Cath Imgs for PACS use only Routine Diabetes Follow up Diabetes Follow-up Needed for Newly Diagnosed Diabetes Hospital Course (1) Acute respiratory failure with hypoxia: (2) Congestive heart failure: (3) Hypertensive urgency: (4) Morbid obesity: (5) DMII (diabetes mellitus, type 2): Plan This is a 61 yr old M who has a significant PMH of PE previously on warfarin, hx of volvulus and morbid obesity who presents to ED 2/2 to SOB x few months. Acute hypoxic respiratory failure Acute decompensated heart failure Hypertensive urgency - likely in setting of uncontrolled hypertension SOB improved, chest pain has resolved. Still requiring oxygen supplementation-improved but will likely need oxygen at home. 2 step today too set up oxygen for home 1L net out overnight (fluid) Cont current medical therapy Awaiting cardiac cath later today. DMII, new onset A1C x 2 over goal. He is not requiring insulin coverage at this time. Cont frequent BSG checks. environmental educator saw him. Close PCP follow-up is recommended after discharge. good options for hyperglycemia would be GLP-1 agonist like Trulicity, metformin or Jardiance given his heart failure. will await results of his heart cath and discuss more therapeutic options with him afterwards. Morbid obesity consider lifestyle and diet modifications which may be a challenge in setting of heart failure. consult valve mechanic for assistance Hx of PE/DVT ppx: SQ Lovenox Dispo: PCU PCP: none, previously followed Dr. Hurst FULL CODE Mayr Redman DO [facility] Hospitalist Discharge Plan Discharge Items Patient Disposition: Home - Self-Care Reason For Visit: HYPOXIA, ACUTE CHF, HYPERTENSIVE URGENCY Discharge Diagnosis: Acute respiratory failure with hypoxia Acute decompensated diastolic heart failure CAD status post stent placement this admission Hypertensive urgency Morbid obesity Diabetes myelitis type II Condition on Discharge: Good Activity: Resume your previous activity Non-emergency contact: Primary Care Provider Call non-emergency contact if: you have any medication questions, your symptoms worsen, your wound has increased redness, your wound has increased drainage and your wound pain has increased Follow-up/Referrals: Mauro Hurst MD [Outside Practitioners] - (Date & Time 06/10/2022 3:00 PM Provider Mauro Hurst MD [facility] ) Diet: Carb Consistent or DM2 and Low Sodium (2gm) Addtl Attending Provider Instructions: Please take all medications as instructed on discharge as well. It is recommended that you follow-up with your primary care provider at the date and time above. This will be important to ensure you are tolerating these new medicines without issue, order refills for medications as needed, adjust medication doses as needed, recheck your blood pressure, heart rate and your weight. It is also important to order a basic metabolic panel to ensure no changes in your kidney function or electrolytes based on the medications given. You have been diagnosed with diabetes mellitus type 2 which puts you at increased risk for additional cardiac events in the future if not managed. Please discuss with your primary care doctor medications that can help reduce your blood sugar levels. Please continue to work on diet and lifestyle modifications to decrease your overall percent body fat and increased lean muscle mass. It is important to follow-up with cardiology as instructed. It was a pleasure taking care of you! Please call if you have any questions or problems. You can reach a [facility] hospitalist on duty at [facility] 24 hours a day by calling [phone]. Take care of yourself. Mary Redman DO [facility] Hospitalist Add Gum Worker Provider Instructions: ACTIVITY RECOMMENDATIONS: Excess manipulation of the wrist should be avoided for the next 24-48 hours. * No lifting over 2 pounds (approximately a 1/2 gallon of milk) with the utilized arm for 24 hours. * No strenuous activity such as bowling or tennis for 3 days. * Keep the site of the procedure covered with a bandage for 24 hours. *You may shower the day after the procedure. Do not take a tub bath or submerge the puncture site in water for the next 3 days. *Do not operate any motorized equipment for 3 days. SPECIAL CARE INSTRUCTIONS: The site may be slightly bruised and sore following your procedure. Should any of the following occur, contact the Dr. who performed your procedure. 1. Redness/inflammation, swelling, chills, or fever, or colored drainage at procedure site within 3-7 days after your procedure. 2. Coldness, discoloration, ongoing numbness, severe pain, or swelling. Expect mild tingling of hand and tenderness at the puncture site for up to three days. If this persists beyond three days, or other symptoms develop, notify the Dr. who performed your procedure. BLEEDING: If the procedure site on your wrist begins to bleed, do not panic 1. Place 1 or 2 fingers firmly just slightly above the insertion site to stop the bleeding. You may be able to feel your pulse as you hold pressure. 2. Lift your finger after 5 minutes to see if the bleeding has stopped. 3. Once the bleeding has stopped, gently wipe the wrist area clean with a bandage. * If the bleeding from your wrist does not stop after 10 minutes, or if there is a large amount of bleeding or spurting, call 911 (do not drive yourself to the hospital). SKIN IRRITATION: * You may experience some redness and/or swelling in the area where radiation was administered. If any skin irritation occurs, please contact your family physician. FOLLOW UP VISIT: Keep any scheduled doctor appointments. Call 911 and go to the Emergency Room if: * You have tightness or pain in your chest that does not go away with rest or Nitroglycerin * You are very short of breath even with rest Call your doctor if any of the following symptoms or problems start or get worse: * Shortness of breath or difficulty breathing * Wake up at night short of breath * Chest pain * Cough * Swelling of your hands, fee, or legs * More fatigued or tired with your normal activity * Palpitations - sudden fast heart beats WEIGHT * Weigh yourself every morning after using the bathroom. * Use the same scale. * Wear the same amount of clothing. * Write your weight down on your chart. * Call your doctor if you gain more than 2-3 pounds in 1-2 days. MEDICATIONS * Use this discharge instruction sheet for instructions. * Take your medications at the time your doctor ordered. * Do not skip a dose of your medicines. * If you miss a dose of medicine, take as soon as possible, but DO NOT DOUBLE A DOSE. * Read your medicine information when you get home. * Know all of the side effects of your medicine. * Call your doctor's office if you have any side effects. * Be sure all of your doctors know what medicine and herbs you take (including cold, flu, and herbal medicine). * Pain Medicine: If you do not get relief from your pain, please call your doctor for help. Take the following with you to your follow-up doctor appointments: * Weight Chart * Medication List * List of questions Do not drink excessive alcohol, beer or wine. Pending Studies at Discharge: No Stand-Alone Forms: [facility] Medications and DC Order Prescriptions: New clopidogrel 75 mg Tablet 75 mg PO QAM Qty: 30 0RF carvedilol 12.5 mg Tablet 12.5 mg PO BID Qty: 60 0RF losartan 50 mg Tablet 50 mg PO QAM Qty: 30 0RF spironolactone 25 mg Tablet 25 mg PO DAILY Qty: 30 0RF furosemide 40 mg tablet 40 mg PO [id number] Qty: 60 0RF potassium chloride 20 mEq tablet extended release 20 meq PO DAILY Qty: 30 0RF (DME) Oxygen Home Liters Per Minute See Rx Instructions .Route Qty: 1 0RF Rx Instructions: As directed Continued multivitamin Tablet 1 tab PO DAILY ascorbic acid (vitamin C) [Vitamin C] 500 mg Tablet 500 mg PO DAILY aspirin 81 mg Tablet,Chewable 81 mg PO DAILY Discharge Orders: Discharge Order (Routine); Ordered 06/04/22 Ordered By: Mary Benson/Other Patient Handouts: Exercise: Why Fitness Matters, Diabetes: Meal Planning, Type 2 Diabetes Admission Data Admit Date/Time: 05/28/22 09:31 Attending Provider: Mary Redman Admit Provider: Yolis Arenas Primary Care Provider: PCP,NO Other Providers: Arcadio Coker ; Yolis Arenas Other Interventions: Discharge Summary Assessment (RN) Last Done: 06/04/22 14:26
--- NOTE | 2022-06-04 14:11 | Cardiology Progress Note ---
Date of Service June 04, 2022 Assessment & Plan (1) Heart failure, diastolic, with acute decompensation: (2) Presence of drug coated stent in left circumflex coronary artery: (3) Acute respiratory failure with hypoxia: (4) Hypertensive urgency: (5) Pleural effusion, bilateral: Plan Results of cardiac catheterization reviewed. Continue dual antiplatelet therapy for minimum of 6 months post percutaneous intervention. 100% RCA occlusion will be managed medically at this time. Titrate carvedilol to 12.5 mg twice daily. Continue losartan, Aldactone, and aspirin. Transition IV furosemide to oral furosemide 40 mg twice daily. Repeat basic metabolic panel in 5 to 7 days post discharge. Suspect patient with underlying obstructive sleep apnea and/or OHS. Recommend outpatient sleep medicine consultation. Close cardiology follow-up in 1 week. Post cardiac catheterization activity restrictions listed below. ACTIVITY RECOMMENDATIONS: It is common to feel weak and fatigue for a few days. * Do not drive or operate any motorized equipment for the next three days. * Limit stair usage (2 or 3 trips a day only) for the next three days. * Do not lift anything heavier than 10 pounds for the next three days. * Do not engage in vigorous exercise or any sports for the next five days. * You may shower the day after your procedure, but do not immerse the area for three days. Cleanse the site gently with soap and water. SPECIAL CARE INSTRUCTIONS: * You may replace the pressure dressing or band-aid the morning after the procedure. * After your procedure, it is normal to have a small bruise or small lump at the site. Examine your site daily for any change in the bruise or lump, redness, swelling, drainage or numbness. Notify your doctor if any change. BLEEDING: * If there is a small amount of bleeding at the site, lie down and apply firm pressure with a clean cloth for ten minutes. When the bleeding stops, lie quietly keeping the procedure limb straight for six hours. Notify your doctor as soon as possible. * If the bleeding does not stop after ten minutes or if there is a large amount of bleeding or spurting, call 911 immediately. Continue to lie down and hold firm pressure until help arrives. SKIN IRRITATION: * You may experience some redness and/or swelling in the area where radiation was administered. If any skin irritation occurs, please contact your family physician. FOLLOW UP VISIT: Keep any scheduled doctor appointments. Admission and Anticipated Discharge Date Admission Date: May 28, 2022 Subjective Patient seen examined the bedside. Drug-eluting stent implanted to the left circumflex 06/03/2022 without complication. Clopidogrel added to daily aspirin. Fluid balance negative additional 1.1 L. Renal function remained stable. Blood pressure mildly elevated. Patient denies chest pain, or shortness of breath. Edema unchanged. No orthopnea or PND. Telemetry reveals sinus rhythm. Review of Systems Review of Systems: All systems reviewed & are unremarkable except as noted in Subjective Physical Exam Constitutional: well developed, well nourished and + obese ENMT: Mallampati Class: III Respiratory: normal respiratory effort; no respiratory distress, no labored breathing and no retractions Auscultation: lungs clear to auscultation bilaterally and + diminished lung sounds (Bases bilateral); no crackles, no rales, no rhonchi and no wheezes Cardiovascular: Rate/Rhythm: regular rate and regular rhythm Heart Sounds: normal S1 and normal S2; no murmur Vessels: femoral pulses present and radial pulses present; no JVD and no carotid bruit Extremities: + edema (Trace to mild bilateral pedal edema with stasis changes.) Gastrointestinal (Abdomen): Inspection/Auscultation: normal bowel sounds; abdomen not distended Percussion/Palpation: abdomen soft; abdomen nontender, no guarding and abdomen not rigid Neurologic: CN's II-XI intact bilaterally and moves all extremities; no focal motor deficits Motor/Sensory: no tremor Psychiatric: A+Ox3, euthymic affect Results & Data ([facility]) Vital Signs (Past 12 Hours) Vital Signs Temp Pulse Pulse Resp BP BP Pulse Ox 06/04/22 13:02 06/04/22 06:30 36.5 C 82 20 139/79 95 06/04/22 08:00 80 06/04/22 08:00 06/04/22 08:00 37.0 C 94 H 20 152/72 H 96 06/04/22 06:39 80 156/90 H 06/04/22 04:00 36.6 C 81 18 165/93 H 96 Pulse Ox Pulse Ox Pulse Ox O2 Del Method O2 Flow Rate O2 Flow Rate O2 Flow Rate 06/04/22 13:02 93 95 89 L 4 4 06/04/22 06:30 06/04/22 08:00 06/04/22 08:00 Nasal Cannula 4 06/04/22 08:00 06/04/22 06:39 06/04/22 04:00 Oxymask 4 O2 Flow Rate 06/04/22 13:02 4 06/04/22 06:30 06/04/22 08:00 06/04/22 08:00 06/04/22 08:00 06/04/22 06:39 06/04/22 04:00
[2022-06-04] MEDS ORDERED: carvediloL 12.5 MG TAB PO SCH (21:00)
== END 2022-06-04 15:18 | disposition home or self-care (01) | DRG 246 ==
LOC: ED 06:09 → SUATTDRO 09:31 → EDINP 09:31 → 2S 12:33

== ENCOUNTER 2022-06-11 17:04 | Inpatient (IN) ==
[2022-06-11 18:49] LABS: Basophils # (auto) 0.04 K/uL (0-0.2); Basophils % (auto) 0.5 %; Eosinophils # (auto) 0.24 K/uL (0-0.50); Eosinophils % (auto) 3.2 %; Hematocrit (blood only) 43.7 % (40.1-51.0); Immature Granulocytes # (auto) 0.02 K/uL (0.00-0.02); Immature Granulocytes % (auto) 0.3 %; Lymphocytes # (auto) 1.29 K/uL (1.2-3.4); Lymphocytes % (auto) 17.3 %; Mean Corpuscular Volume 87.4 fL (80.0-100.0); Mean Platelet Volume 10.6 fL (9.4-12.4); Monocytes # (auto) 0.72 K/uL (0.24-0.82); Monocytes % (auto) 9.7 %; Neutrophils # (auto) 5.13 K/uL (1.4-6.5); Platelet Count 187 K/uL (130-400); RDW Coefficient of Variation 14.2 % (11.5-14.5); White Blood Count 7.44 K/ul (4.8-10.8)
[2022-06-11 19:15] LABS: Albumin Globulin Ratio 1.1 (0.9-2); Albumin Level 3.7 gm/dl (3.4-5.0); BUN Creatinine Ratio 19.7 (10-20); Bilirubin,Total 0.8 mg/dl (0.2-1.0); Calcium 9.4 mg/dl (8.5-10.1); Est GFR (African American) 48.3 ml/min; Est GFR (Non-African American) 41.7 ml/min; Globulin 3.4 gm/dl (2.5-4.0); Potassium 5.4 mmol/L (3.5-5.1); Total Protein 7.1 gm/dl (6.0-8.3)
[2022-06-12] MEDS ORDERED: ONDANSETRON INJ 2 MG/ML 2 ML VIAL IV PRN
[2022-06-12] MEDS ORDERED: NITROGLYCERIN SL 0.4 MG/TAB TAB SL PRN
[2022-06-12] MEDS ORDERED: SODIUM POLYSTYRENE SULFONATE 15G/60ML SUSP PO STA
[2022-06-12] MEDS ORDERED: SODIUM CHLORIDE 0.9% 1000ML 1,000 ML IV SCH
[2022-06-12] MEDS ORDERED: POLYETHYLENE (MIRALAX) 17 GM PACK PO PRN
[2022-06-12] MEDS ORDERED: ACETAMINOPHEN 325 MG TAB PO PRN
--- NOTE | 2022-06-12 02:05 | History and Physical Report ---
DATE OF ADMISSION: 06/11/2022. CHIEF COMPLAINT: Abnormal labs. HISTORY OF PRESENT ILLNESS: A 61-year-old male with past medical history significant for history of pulmonary embolism in the past, GERD, history of volvulus of intestine, morbid obesity, history of gastroenteritis who was recently in the hospital with shortness of breath from acute diastolic CHF, and also hypertensive urgency. During last admission for ischemic evaluation, cardiac catheterization was done . The patient was status post stent to left circumflex. In the hospital, the patient was treated with diuretics and on discharge, he was placed on Plavix, Coreg, losartan, spironolactone, Lasix 40 mg b.i.d., potassium supplements and he was discharged on 06/04/2022. He followed with the PCP today and outpatient labs were done. Followup labs showed potassium of 5.6, creatinine of 1.9 and he was advised to come to the ER. In the ER, potassium was 5.4, creatinine 1.7. Currently, resting comfortably and hemodynamically stable. He states his leg swelling has improved. Denies any chest pain, no shortness of breath, no cough, no nausea, no vomiting, no abdominal pain. Normal bowel and bladder movements. No headache, no dizziness. He has some blurred vision in the left eye from the cataract. No runny nose, no sore throat, no cough. Appetite is okay. No difficulty swallowing. Currently, resting comfortably and hemodynamically stable. He is on 2 L of oxygen since discharged from the hospital. ALLERGIES: SMALL POX VACCINE. PAST MEDICAL HISTORY: As mentioned above. PAST SURGICAL HISTORY: Cardiac catheterization, exploration of abdomen. MEDICATIONS: Currently the patient is on vitamin C 500 mg p.o. daily, aspirin 81 mg p.o. daily, Coreg 12.5 mg p.o. b.i.d., Plavix 75 mg p.o. daily, Lasix 40 mg p.o. b.i.d., losartan 50 mg p.o. a.m., multivitamin 1 tablet daily, potassium chloride 20 mEq p.o. daily, spironolactone 25 mg p.o. daily. FAMILY HISTORY: No family history on file. SOCIAL HISTORY: Single, no smoking, no alcohol, no drug use. REVIEW OF SYSTEMS: As per HPI. Rest of review of systems is negative. PHYSICAL EXAMINATION: GENERAL: The patient is morbidly obese, not in acute distress. VITAL SIGNS: Temperature 36.5, pulse 79, respiratory rate 16, blood pressure 150/91, and oxygen 95% on 2 L. HEENT: Pupils equal, round and reactive to light. Oral mucosa moist. NECK: No JVD. No neck masses. CARDIOVASCULAR: S1 and S2 heard. Regular rate and rhythm. No murmur, no gallop. RESPIRATORY SYSTEM: Normal AP diameter. No accessory muscle use. No wheezing, no crackles. ABDOMEN: Soft, bowel sounds present, nontender, no distention. CENTRAL NERVOUS SYSTEM: Cranial nerves II-XII grossly intact, nonfocal. EXTREMITIES: Lower extremity edema present. Chronic skin changes seen. LABORATORY DATA: WBC 7.4, hemoglobin 14, hematocrit 43.7, platelets 187. Sodium 135, potassium 5.4, chloride 95, bicarbonate 36, BUN 34, creatinine 1.7, serum glucose 297, calcium 9.4, total bilirubin 0.8, AST 20, ALT 18, alkaline phosphatase 68. SARS-CoV-2 rapid test negative. EKG: Showing normal sinus rhythm at a rate of 75, no acute ST changes seen. ASSESSMENT AND PLAN: This is a 61-year-old male who presents with abnormal labs. 1. Abnormal labs with hyperkalemia and PEDRO. Recently was put on losartan, potassium supplement, spironolactone and Lasix 40 b.i.d., which we will hold for now. Getting gentle fluids and also will give a dose of Kayexalate, low- potassium diet. Consult cardiology and nephrology for adjustment of medications. Follow the repeat labs in the a.m. 2. Chronic diastolic congestive heart failure. Continue using 2 L of oxygen. Chronic respiratory failure, using 2 L oxygen. Holding diuretics. Monitor for now and getting gentle fluids. We will monitor for volume overload. 3. History of coronary artery disease, status post stent. Continue his aspirin, Plavix and beta adamaris. 4. Morbid obesity: Needs counseling. Needs a sleep study as outpatient. Continue using oxygen. 5. Hypertension: Continue Coreg. We are holding his home diuretics and losartan. We will monitor the blood pressure. 6. Diabetes, new onset. Not on any medication currently. Needs a followup. 7. Deep venous thrombosis prophylaxis: Placed on heparin subcutaneous. DISPOSITION: Closely monitor in the [employer] tele. PT/OT prior to discharge. Social service to help with discharge planning. Job ID: [id number] CHRIS
[2022-06-12 06:11] LABS: Basophils # (auto) 0.03 K/uL (0-0.2); Basophils % (auto) 0.5 %; Eosinophils % (auto) 4.9 %; Hematocrit (blood only) 43.4 % (40.1-51.0); Hemoglobin 13.8 g/dl (14.0-18.0); Immature Granulocytes # (auto) 0.02 K/uL (0.00-0.02); Immature Granulocytes % (auto) 0.3 %; Lymphocytes # (auto) 1.35 K/uL (1.2-3.4); Lymphocytes % (auto) 22.2 %; Mean Corpuscular Hemoglobin 27.4 pg (25.0-34.0); Mean Corpuscular Hgb Conc 31.8 g/dL (32.0-36.0); Mean Corpuscular Volume 86.3 fL (80.0-100.0); Mean Platelet Volume 10.2 fL (9.4-12.4); Monocytes # (auto) 0.63 K/uL (0.24-0.82); Monocytes % (auto) 10.3 %; Neutrophils # (auto) 3.76 K/uL (1.4-6.5); Neutrophils % (auto) 61.8 %; Platelet Count 175 K/uL (130-400); RDW Coefficient of Variation 14.1 % (11.5-14.5); RDW Standard Deviation 44.3 fL (36.4-46.3); Red Blood Count 5.03 M/uL (4.63-6.08); White Blood Count 6.09 K/ul (4.8-10.8)
[2022-06-12 06:39] LABS: BUN Creatinine Ratio 20.7 (10-20); Calcium 9.1 mg/dl (8.5-10.1); Creatinine Clr Calc Pharmacy 79.9 ml/min; Est GFR (African American) 59.8 ml/min; Est GFR (Non-African American) 51.6 ml/min; Magnesium 2.3 mg/dl (1.7-2.4); Potassium 4.8 mmol/L (3.5-5.1)
[2022-06-12] MEDS: HEPARIN SOD 5,000 UNIT/0.5 ML VIAL SQ SCH ×2 (08:15→14:28)
--- NOTE | 2022-06-12 08:44 | Cardiology Consultation ---
Date of Consultation June 12, 2022 Assessment & Plan (1) Hyperkalemia: (2) PEDRO (acute kidney injury): (3) Pulmonary embolism: (4) Hypertension: (5) DMII (diabetes mellitus, type 2): (6) Suspected sleep apnea: (7) Heart failure, diastolic, with acute decompensation: (8) Morbid obesity: (9) CAD (coronary artery disease): Plan Pt presents with hyperkalemia and PEDRO 1 week after discharge and initiation of GDMT No current cardiac complaints. Hyperkalemic EKG changes with diffuse peaked T waves on presenting EKG. No ventricular arrhythmias or significant ventricular ectopy. Obviously, agree with holding spironolactone, losartan and the potassium supplementation that he was discharged on, Would continue p.o. furosemide. Continue telemetry monitoring. Will defer further electrolyte management to primary team and our nephrology colleagues. History of Present Illness Reason for Consultation: Hyperkalemia Requesting Physician: [facility] hospitalist group Attending Physician: Babar Stewart MD History of Present Illness It was my pleasure to see Mr. Newsome in cardiac consultation today June 12, 2022. He is a very pleasant 61-year-old gentleman who was sent to the emergency room after outpatient laboratory studies revealed hyperkalemia and acute renal failure. Clinically the patient states he feels well and denies any chest pain, shortness of breath, palpitations, lightheadedness, dizziness or syncope. The patient was recently admitted to [facility] and treated by our cardiology team for acute decompensated diastolic heart failure including guideline directed medical therapy. Outpatient laboratory testing was then performed according to cardiac guidelines. Past Medical and Surgical History: Hypertension Dyslipidemia Obesity History of volvulus, small bowel obstruction s/p resection Postoperative PE, anemia requiring transfusion, significant neutropenia, bacteremia Status post incidental appendectomy Status post bowel resection Recently diagnosed HFpEF RCA [employer] Allergies Allergy/AdvReac Type Severity Reaction Status Date / Time smallpox vaccine,live Allergy Severe edema Verified 06/12/22 00:05 Home Medications Medication Instructions Recorded Confirmed Type ascorbic acid (vitamin C) 500 mg 500 mg PO DAILY 05/28/22 06/11/22 History tablet (Vitamin C) aspirin 81 mg chewable tablet 81 mg PO DAILY 05/28/22 06/11/22 History multivitamin 1 tab PO DAILY 05/28/22 06/11/22 History Oxygen Home #1 ea 06/04/22 06/11/22 Rx carvedilol 12.5 mg tablet 12.5 mg PO BID #60 tabs 06/04/22 06/11/22 Rx clopidogrel 75 mg tablet 75 mg PO QAM #30 tabs 06/04/22 06/11/22 Rx furosemide 40 mg tablet 40 mg PO BID17 #60 tabs 06/04/22 06/11/22 Rx losartan 50 mg tablet 50 mg PO QAM #30 tabs 06/04/22 06/11/22 Rx potassium chloride 20 mEq 20 meq PO DAILY #30 tabs 06/04/22 06/11/22 Rx tablet,extended release spironolactone 25 mg tablet 25 mg PO DAILY #30 tabs 06/04/22 06/11/22 Rx Patient History Medical History Pulmonary embolism Volvulus Surgical History Hx of appendectomy same time as colon resection Hx of exploratory laparotomy s/p colectomy 2009 Family History Father Hx of CABG Brother Diabetes Uncle Cancer Social History Smoking Status: Never smoker Second Hand Exposure: Yes; Do You Dip or Chew Tobacco: No; Hx Alcohol Use: No Hx Substance Use: No Preferred Language: Togolese Communication Ability: Effective Ui U[employer] Engineer Required: No Beliefs That Will Affect Care: None marital status: Single Current Living Situation: Significant Other Current Living Situation Comment: with girlfriend current occupational status: employed 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 No acute distress. HEENT: Normocephalic, atraumatic. Pupils equal, round and reactive to light a nd accommodation. Extraocular muscles are intact. Anicteric sclera. Moist mucous membranes. Neck: No JVD. No bruit. Cardiovascular: Regular. Positive S-4. Normal S-1 and S-2. No S-3. No murm urs or rubs. Pulmonary: Clear to auscultation B/L. No rales, rhonchi or wheezing Abdomen: Bowel sounds x 4, soft. No rebound, guarding or tenderness. No organomegaly. Extremities: No clubbing, cyanosis or edema. +2 pedal pulses bilaterally. Skin: Warm and dry. Results & Data ([facility]) Vital Signs (Past 12 Hours) Vital Signs Pulse Pulse Resp BP BP Pulse Ox Pulse Ox 06/12/22 08:00 78 24 160/98 H 97 06/12/22 07:30 77 20 06/12/22 07:00 76 23 96 06/12/22 06:00 81 21 06/12/22 05:30 87 20 06/12/22 05:00 78 20 06/12/22 04:30 76 20 06/12/22 04:12 81 21 06/12/22 04:12 177/105 H 06/12/22 04:00 80 19 06/12/22 03:30 74 16 06/12/22 03:00 79 21 06/12/22 02:30 74 19 06/12/22 02:00 77 18 06/12/22 01:30 74 18 06/12/22 01:00 79 21 06/12/22 01:00 181/101 H 06/12/22 00:30 98 H 21 06/12/22 00:47 77 24 165/93 H 06/12/22 00:43 96 06/12/22 00:00 77 22 165/93 H 96 06/11/22 23:22 79 23 165/91 H 97 06/11/22 22:47 78 16 150/91 H 95 06/11/22 21:14 76 16 167/99 H 100 O2 Del Method O2 Del Method O2 Flow Rate O2 Flow Rate 06/12/22 08:00 Nasal Cannula 2 06/12/22 07:30 06/12/22 07:00 Room Air 06/12/22 06:00 06/12/22 05:30 06/12/22 05:00 06/12/22 04:30 06/12/22 04:12 06/12/22 04:12 06/12/22 04:00 06/12/22 03:30 06/12/22 03:00 06/12/22 02:30 06/12/22 02:00 06/12/22 01:30 06/12/22 01:00 06/12/22 01:00 06/12/22 00:30 06/12/22 00:47 06/12/22 00:43 Nasal Cannula 2 06/12/22 00:00 Nasal Cannula 2 06/11/22 23:22 Nasal Cannula 2 06/11/22 22:47 Nasal Cannula 2 06/11/22 21:14 Room Air
[2022-06-12] MEDS ORDERED: ASPIRIN 81 MG ECTAB PO SCH (09:00)
[2022-06-12] MEDS ORDERED: CLOPIDOGREL BISULFATE 75 MG TAB PO SCH (09:00)
[2022-06-12] MEDS ORDERED: MULTIVITAMIN TAB PO SCH (09:00)
[2022-06-12] MEDS ORDERED: carvediloL 12.5 MG TAB PO SCH (09:00)
[2022-06-12] MEDS ORDERED: ASCORBIC ACID 500 MG TAB PO SCH (09:00)
--- NOTE | 2022-06-12 09:37 | Electrocardiogram Report ---
Test Reason : Blood Pressure : / mmHG Vent. Rate : 075 BPM Atrial Rate : 075 BPM P-R Int : 166 ms QRS Dur : 092 ms QT Int : 374 ms P-R-T Axes : 005 043 029 degrees QTc Int : 417 ms Normal sinus rhythm Low voltage QRS Poor R wave progression, consider anterior KS vs. lead placement vs. LVH Borderline ECG When compared with ECG of 29-MAY-2022 12:19, Premature atrial complexes are no longer Present Confirmed by Hiram Guzman ([id number]) on 06/12/2022 9:36:59 AM Referred By: Erendira Cuello Confirmed By:Hiram Guzman
--- NOTE | 2022-06-12 12:06 | Consultation Report ---
NEPHROLOGY CONSULTATION NOTE DATE OF SERVICE: 06/12/2022. REASON FOR CONSULTATION: Acute on chronic kidney disease with hyperkalemia. HISTORY OF PRESENT ILLNESS: The patient is a 61-year-old male who was sent over to the hospital after abnormal outpatient labs which showed a potassium of 5.9 and a creatinine of 1.9. The patient was recently discharged from the hospital on 06/04/2022 following an admission for acute diastolic congestive heart failure and hypertensive urgency. He also had cardiac catheterization last hospitalization and had a stent placed to the left circumflex. The patient was discharged on losartan, spironolactone, Lasix 40 twice daily and potassium supplement. Since being admitted, losartan, spironolactone, Lasix and potassium has been held and the patient received some IV fluids and with that labs have improved. Creatinine was 1.73 on admission last night and is down to 1.45 a week ago. At the time of discharge, it was 1.2. Potassium is now completely normal at 4.8. The patient feels completely asymptomatic and is very desperate to go home today if possible. ALLERGIES: SMALL POX VACCINE. PAST MEDICAL HISTORY: Includes history of pulmonary embolism in the past, GERD, history of volvulus of intestine, morbid obesity, history of gastroenteritis, diastolic congestive heart failure, hypertensive urgency, coronary artery disease, status post stent, cardiac catheterization, exploration of abdomen. MEDICATIONS: At home includes vitamin C, aspirin, Coreg 12.5 twice daily, Plavix 75 daily, Lasix 40 twice daily, losartan 50 daily, potassium chloride 20 daily, spironolactone 25 daily. FAMILY HISTORY: Negative for renal disease or dialysis. SOCIAL HISTORY: Single. No smoking, no alcohol, no drugs. He does have a girlfriend who lives with her. REVIEW OF SYSTEMS: Completely normal. He was admitted entirely because of abnormal labs. Denies having any symptoms at this time. He did have some shortness of breath, orthopnea, lower extremity edema prior to the previous admission, but not now. Twelve systems reviewed and negative. PHYSICAL EXAMINATION: GENERAL: Elderly to middle-aged white male, who is obese. He is not in any respiratory distress. He is awake, alert, oriented x3. HEENT: Mucous membranes are moist. NECK: Supple. No jugular venous distention. VITAL SIGNS: Blood pressure 160/98, pulse rate 73, temperature 36.5, 97% on 2 liter nasal cannula. CHEST: Bilaterally clear to auscultation. CARDIOVASCULAR: S1 and S2, regular. ABDOMEN: Soft, nontender, obese. EXTREMITIES: Show no edema. NEUROLOGIC: Normal speech and no focal deficit. LABORATORY TEST: As reviewing earlier at discharge time a week ago, he had a creatinine of 1.2 and a potassium of 4.5. On admission yesterday, he had a potassium of 5.4, sodium 135. This morning, sodium is 139, potassium is 4.8, BUN is 30, creatinine is down to 1.45. ASSESSMENT AND PLAN: A 61-year-old male with diabetes, hypertension, history of PE, congestive heart failure and coronary artery disease, was admitted because of abnormal outpatient labs showing acute renal failure and hyperkalemia. He was completely asymptomatic and was admitted for abnormal labs. 1. Acute kidney injury (PEDRO). 2. Hyperkalemia. ----Creatinine did go up and potassium did go up after the hospital discharge, most likely secondary to medications interaction. With gentle hydration, labs are already better. Potassium is now normal. At the time of discharge, I would not prescribe him potassium supplement. Lasix will need to be continued as well as losartan. I would also hold off on the spironolactone for the time being until we have steady renal function and steady potassium as an outpatient. The patient desperately wants to go home today and I have no problem from renal standpoint. He will need to have blood work done within a few days after hospital discharge to monitor his renal function and the potassium. Thank you very much for the consult. Job ID: [id number] [facility]
--- NOTE | 2022-06-12 15:09 | Discharge Summary ---
Date of Service June 12, 2022 Admission HPI Per Admitting Provider A 61-year-old male with past medical history significant for history of pulmonary embolism in the past, GERD, history of volvulus of intestine, morbid obesity, history of gastroenteritis who was recently in the hospital with shortness of breath from acute diastolic CHF, and also hypertensive urgency. During last admission for ischemic evaluation, cardiac catheterization was done . The patient was status post stent to left circumflex. In the hospital, the patient was treated with diuretics and on discharge, he was placed on Plavix, Coreg, losartan, spironolactone, Lasix 40 mg b.i.d., potassium supplements and he was discharged on 06/04/2022. He followed with the PCP today and outpatient labs were done. Followup labs showed potassium of 5.6, creatinine of 1.9 and he was advised to come to the ER. In the ER, potassium was 5.4, creatinine 1.7. Currently, resting comfortably and hemodynamically stable. He states his leg swelling has improved. Denies any chest pain, no shortness of breath, no cough, no nausea, no vomiting, no abdominal pain. Normal bowel and bladder movements. No headache, no dizziness. He has some blurred vision in the left eye from the cataract. No runny nose, no sore throat, no cough. Appetite is okay. No difficulty swallowing. Currently, resting comfortably and hemodynamically stable. He is on 2 L of oxygen since discharged from the hospital. Admission Exam Per Admitting Provider GENERAL: The patient is morbidly obese, not in acute distress. VITAL SIGNS: Temperature 36.5, pulse 79, respiratory rate 16, blood pressure 150/91, and oxygen 95% on 2 L. HEENT: Pupils equal, round and reactive to light. Oral mucosa moist. NECK: No JVD. No neck masses. CARDIOVASCULAR: S1 and S2 heard. Regular rate and rhythm. No murmur, no gallop. RESPIRATORY SYSTEM: Normal AP diameter. No accessory muscle use. No wheezing, no crackles. ABDOMEN: Soft, bowel sounds present, nontender, no distention. CENTRAL NERVOUS SYSTEM: Cranial nerves II-XII grossly intact, nonfocal. EXTREMITIES: Lower extremity edema present. Chronic skin changes seen. Principal Diagnosis PEDRO, hyperkalemia due to medications Discharge Exam General: Lying comfortably in bed, not in distress, on NC Chest: Fair breath sounds bilaterally, no wheezes or crackles CVS: Regular rate and rhythm, normal heart sounds, no murmur Abdomen: Soft, non tender, not distended, normal bowel sounds Neuro: Awake, alert, oriented, conversing well, non focal Extremities: Edema + Discharge Data Allergies Allergy/AdvReac Type Severity Reaction Status Date / Time smallpox vaccine,live Allergy Severe edema Verified 06/12/22 00:05 Consultations 06/11/22 21:41 ED Decision to Admit Stat 06/12/22 08:00 Consult Cardiology Routine Ordered Studies Laboratory Results WBC 6.09 K/ul (4.8-10.8) 06/12/22 05:42 RBC 5.03 M/uL (4.63-6.08) 06/12/22 05:42 Hgb 13.8 g/dl (14.0-18.0) L 06/12/22 05:42 Hct 43.4 % (40.1-51.0) 06/12/22 05:42 MCV 86.3 fL (80.0-100.0) 06/12/22 05:42 MCH 27.4 pg (25.0-34.0) 06/12/22 05:42 MCHC 31.8 g/dL (32.0-36.0) L 06/12/22 05:42 RDW Std Deviation 44.3 fL (36.4-46.3) 06/12/22 05:42 RDW Coeff of Golden 14.1 % (11.5-14.5) 06/12/22 05:42 Plt Count 175 K/uL (130-400) 06/12/22 05:42 MPV 10.2 fL (9.4-12.4) 06/12/22 05:42 Immature Gran % (Auto) 0.3 % 06/12/22 05:42 Neut % (Auto) 61.8 % 06/12/22 05:42 Lymph % (Auto) 22.2 % 06/12/22 05:42 [place] % (Auto) 10.3 % 06/12/22 05:42 Eos % (Auto) 4.9 % 06/12/22 05:42 Baso % (Auto) 0.5 % 06/12/22 05:42 Neut # (Auto) 3.76 K/uL (1.4-6.5) 06/12/22 05:42 Lymph # (Auto) 1.35 K/uL (1.2-3.4) 06/12/22 05:42 [place] # (Auto) 0.63 K/uL (0.24-0.82) 06/12/22 05:42 Eos # (Auto) 0.30 K/uL (0-0.50) 06/12/22 05:42 Baso # (Auto) 0.03 K/uL (0-0.2) 06/12/22 05:42 Immature Gran # (Auto) 0.02 K/uL (0.00-0.02) 06/12/22 05:42 Sodium 139 mmol/L (136-145) 06/12/22 05:42 Potassium 4.8 mmol/L (3.5-5.1) 06/12/22 05:42 Chloride 99 mmol/L (98-107) 06/12/22 05:42 Carbon Dioxide 37 mmol/L (21-32) H 06/12/22 05:42 Anion Gap 3 (3-11) 06/12/22 05:42 BUN 30 mg/dl (6-23) H 06/12/22 05:42 Creatinine 1.45 mg/dl (0.6-1.4) H 06/12/22 05:42 Est Cr Clr Drug Dosing 79.9 ml/min 06/12/22 05:42 Est GFR ( Amer) 59.8 ml/min 06/12/22 05:42 Est GFR (Non-Af Amer) 51.6 ml/min 06/12/22 05:42 BUN/Creatinine Ratio 20.7 (10-20) H 06/12/22 05:42 Glucose 96 mg/dl (70-99(Fasting)) 06/12/22 05:42 Calcium 9.1 mg/dl (8.5-10.1) 06/12/22 05:42 Magnesium 2.3 mg/dl (1.7-2.4) 06/12/22 05:42 Total Bilirubin 0.8 mg/dl (0.2-1.0) 06/11/22 18:30 AST 20 U/L (13-39) 06/11/22 18:30 ALT 18 U/L (7-52) 06/11/22 18:30 Alkaline Phosphatase 68 U/L (34-104) 06/11/22 18:30 Total Protein 7.1 gm/dl (6.0-8.3) 06/11/22 18:30 Albumin 3.7 gm/dl (3.4-5.0) 06/11/22 18:30 Globulin 3.4 gm/dl (2.5-4.0) 06/11/22 18:30 Albumin/Globulin Ratio 1.1 (0.9-2) 06/11/22 18:30 SARS-CoV-2, RNA, NAAT NEGATIVE (NEGATIVE) 06/11/22 21:35 Hospital Course (1) PEDRO (acute kidney injury): (2) Hyperkalemia: Plan 61 year old male with h/o recent admission for acute diastolic CHF and started on GDMT and discharged on 06/04 was sent to the ED for abnormal labs (hyperkalemia and PEDRO). He was asymptomatic. He feels fine. He was given gentle fluid and kayexalate and his losartan, potassium and aldactone held. His potassium is now normal (5.4->4.8) and PEDRO improving (Cr 1.7->1.4), closer to baseline of 1.1-1.3. He was seen by nephrology and cardiology. Reviewed their recommendations. His potassium and aldactone will be discontinued at discharge and his lasix and losartan will be continued as per nephro recommendations. He will have repeat BMP in 2 and 5 days and follow up with PCP. He will see cardio in the office. Further management per cardiology. He is anxious to go home and is cleared for discharge by nephrology and cardio. Our nurse coordinator will arrange for the labs to be drawn with PCP. Total Time Total Time Spent Total Time Spent (In Minutes): 35 Discharge Plan Discharge Items Patient Disposition: Home - Self-Care Reason For Visit: ABNORMAL LABS Discharge Diagnosis: Hyperkalemia, PEDRO due to medications Activity: Resume your previous activity Non-emergency contact: Primary Care Provider Call non-emergency contact if: you have any medication questions Follow-up/Referrals: Khalif Cuello DO [[employer] Lead] - (Date & Time 06/19/2022 11:00 AM Provider Khalif Cuello DO Department Cardiology, [facility] ) Mauro Hurst MD [Primary Care Provider] - (Date & Time 06/14/2022 8:20 AM Provider Lidia Peterson MD [facility] ) Diet: Heart Healthy and Low Sodium (2gm) Fluids: 1800ml (7 cups) Addtl Attending Provider Instructions: Stop your potassium and spironolactone Continue your lasix and losartan Please repeat blood work (BMP) in 2 days and 5 days to monitor potassium and the kidney funciton and follow up with family doctor. Further blood work as needed as dictated by cardiology or family doctor. See cardiology in the office Pending Studies at Discharge: No Stand-Alone Forms: [facility] [place], Smoking Cessation Medications and DC Order Prescriptions: Continued multivitamin Tablet 1 tab PO DAILY ascorbic acid (vitamin C) [Vitamin C] 500 mg Tablet 500 mg PO DAILY aspirin 81 mg Tablet,Chewable 81 mg PO DAILY clopidogrel 75 mg Tablet 75 mg PO QAM Qty: 30 0RF carvedilol 12.5 mg Tablet 12.5 mg PO BID Qty: 60 0RF losartan 50 mg Tablet 50 mg PO QAM Qty: 30 0RF furosemide 40 mg tablet 40 mg PO BID17 Qty: 60 0RF (DME) Oxygen Home Liters Per Minute See Rx Instructions .Route Qty: 1 0RF Rx Instructions: As directed Discontinued spironolactone 25 mg Tablet 25 mg PO DAILY Qty: 30 0RF potassium chloride 20 mEq tablet extended release 20 meq PO DAILY Qty: 30 0RF Discharge Orders: Discharge Order (Routine); Ordered 06/12/22 Ordered By: Babar Stewart Admission Data Admit Date/Time: 06/11/22 23:07 Attending Provider: Babar Stewart Admit Provider: Vicente Oquendo Primary Care Provider: Mauro Hurst Other Providers: Erik Sy ; Arcadio Coker ; Nagi Sims ; Khalif Cuello ; Hugo Gupta ; Mauro Nguyen ; Shy Bella ; Joycelyn Wang ; Jojo Ruth ; Rick Francis ; Vicente Oquendo
[2022-06-12 15:15] LABS: Appearance Urine Clear (Clear); Bacteria Urine Automated Negative (Negative); Bilirubin Urine Negative (Negative); Blood Urine Negative (Negative); Cast Urine Automated 0 /lpf (0-5); Color Urine Yellow; Glucose Urine UA Negative (Negative); Ketones Urine Negative (Negative); Leukocyte Esterase Urine Negative (Negative); Nitrite Urine Negative (Negative); Protein Urine 1+ (Negative); Specific Gravity Urine 1.012 (1.000-1.030); Urobilinogen Urine Negative (Negative)
--- NOTE | 2022-06-12 15:32 | Emergency Department Note ---
History of Present Illness General Chief complaint: Abnormal Labs/Diagnostic Testing Stated complaint: ABNORMAL LABS, DR MAGAÑA REF Time Seen by Provider: 06/11/22 20:30 History of Present Illness This is a 61-year-old male presenting to the emergency department for evaluation of atypical outpatient labs. The patient has a fairly complicated recent medical history including coronary artery disease that required stenting of the left circumflex artery. The patient was hospitalized for a few days and discha rged home. He followed up with his primary care physician yesterday through the [facility] system, and was found to have persistent hyperkalemia as well as decreased renal function. These do seem new when compared to his hospitalization. It is believed that the hyperkalemia is from taking his pota ssium supplement as well as a multivitamin, and was instructed to stop this, although he did take the medication earlier this morning. When the patient got his lab results this afternoon he was referred to the ER by cardiology for further evaluation. The patient does not have any complaints himself. He does wear oxygen at baseline, and has not required additional oxygen supplementation. He does not report fevers or chills. He is reportedly taking his medications as prescribed. Home Medications Medication Instructions Recorded Confirmed Type ascorbic acid (vitamin C) 500 mg 500 mg PO DAILY 05/28/22 06/11/22 History tablet (Vitamin C) aspirin 81 mg chewable tablet 81 mg PO DAILY 05/28/22 06/11/22 History multivitamin 1 tab PO DAILY 05/28/22 06/11/22 History Oxygen Home #1 ea 06/04/22 06/11/22 Rx carvedilol 12.5 mg tablet 12.5 mg PO BID #60 tabs 06/04/22 06/11/22 Rx clopidogrel 75 mg tablet 75 mg PO QAM #30 tabs 06/04/22 06/11/22 Rx furosemide 40 mg tablet 40 mg PO BID17 #60 tabs 06/04/22 06/11/22 Rx losartan 50 mg tablet 50 mg PO QAM #30 tabs 06/04/22 06/11/22 Rx Allergies Allergy/AdvReac Type Severity Reaction Status Date / Time smallpox vaccine,live Allergy Severe edema Verified 06/12/22 00:05 Past Med/Surg History Medical History Pulmonary embolism Volvulus Surgical History Hx of appendectomy same time as colon resection Hx of exploratory laparotomy s/p colectomy 2008 Family History Father Hx of CABG Brother Diabetes Uncle Cancer Social History Smoking Status: Never smoker Second Hand Exposure: Yes; Do You Dip or Chew Tobacco: No; Hx Alcohol Use: No Hx Substance Use: No Preferred Language: Honduran Communication Ability: Effective Commodity Loan Clerk Required: No Beliefs That Will Affect Care: None marital status: Single Current Living Situation: Significant Other Current Living Situation Comment: with girlfriend current occupational status: employed 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 Other Information That Helps Us Care for You: No Feels Safe at Home: Yes Safety Concerns: Feels Safe At This Time Assistive Devices: Oxygen - Continuous Review of Systems A total of 10 systems reviewed and were otherwise negative Physical Exam Vital Signs Vital Signs - 24 hr 06/11/22 22:47 Pulse Rate [Right Finger] 78 Respiratory Rate 16 Respiratory Effort / Characteristics Non-Labored Spontaneous Respiratory Depth Normal Blood Pressure [Right Arm] 150/91 H Blood Pressure Mean [Right Arm] 110 Pulse Oximetry 95 Oxygen Delivery Method Nasal Cannula Oxygen Flow Rate 2 VITALS: Vitals are noted on the nurse's note and reviewed by myself. Vital signs stable. GENERAL: Morbidly obese white male who does not appear in any acute distress. HEAD: Normocephalic atraumatic. HEART: Regular rate and rhythm without murmurs gallops or rubs. LUNGS: Clear to auscultation bilaterally without wheezes, rales or rhonchi. No retractions or accessory muscle use. ABDOMEN: Positive normal bowel sounds x 4. Soft, nontender, without masses or organomegaly. No guarding or rebound tenderness. MUSCULOSKELETAL: Full range of motion in all extremities. No tenderness to palpation. NEURO: Patient was alert and oriented to person place and time. CN II through XII grossly intact. Course Administered Medications Discontinued Medications Ascorbic Acid (Ascorbic Acid 500 Mg Tab) 500 mg PO DAILY SUSANA Stop: 07/12/22 08:59 Last Admin: 06/12/22 08:14 Dose: 500 mg Documented By: ONEIDA Aspirin (Aspirin 81 Mg Ectab) 81 mg PO DAILY SUSANA Stop: 07/12/22 08:59 Last Admin: 06/12/22 08:14 Dose: 81 mg Documented By: HG Carvedilol (Carvedilol 12.5 Mg Tab) 12.5 mg PO BID SUSANA Stop: 07/12/22 08:59 Last Admin: 06/12/22 08:15 Dose: 12.5 mg Documented By: ONEIDA Clopidogrel Bisulfate (Clopidogrel Bisulfate 75 Mg Tab) 75 mg PO QAM SUSANA Stop: 07/12/22 08:59 Last Admin: 06/12/22 08:14 Dose: 75 mg Documented By: ONEIDA Heparin Sodium (Porcine) (Heparin Sod 5,000 Unit/0.5 Ml Vial) 7,500 units SQ Q8 SUSANA Stop: 07/12/22 05:59 Last Admin: 06/12/22 14:28 Dose: 7,500 units Documented By: Admin: 06/12/22 08:15 Dose: 7,500 units Documented By: ONEIDA Sodium Chloride (Nss 1000ml) 1,000 mls @ 75 mls/hr IV .[id number] SUSANA Stop: 06/12/22 13:19 Last Infusion: 06/12/22 14:37 Dose: 0 mls/hr Documented By: Admin: 06/12/22 00:42 Dose: 75 mls/hr Documented By: GARETH Multivitamins (Multivitamin Tab) 1 tab PO DAILY SUSANA Stop: 07/12/22 08:59 Last Admin: 06/12/22 08:14 Dose: 1 tab Documented By: ONEIDA Sodium Polystyrene Sulfonate (Sodium Polystyrene Sulfonate 15g/60ml Susp) 30 gm PO NOW STA Stop: 06/12/22 00:01 Last Admin: 06/12/22 00:29 Dose: 30 gm Documented By: GARETH Medical Decision Making Differential Diagnosis Differential diagnosis includes, but is not limited to: Myocardial infarction, dysrhythmia, pericarditis, pneumothorax, aortic aneurysm/dissection, DVT/PE, anxiety, GERD, PUD, electrolyte imbalance, thyroid disorder, pneumonia, bronchitis, pancreatitis, and others Laboratory Data Result diagrams: 06/12/22 05:42 06/12/22 05:42 Lab Results 08/23/22 08/23/22 08/23/22 Range/Units 18:30 18:30 21:35 WBC 7.44 (4.8-10.8) K/ul RBC 5.00 (4.63-6.08) M/uL Hgb 14.0 (14.0-18.0) g/dl Hct 43.7 (40.1-51.0) % MCV 87.4 (80.0-100.0) fL MCH 28.0 (25.0-34.0) pg MCHC 32.0 (32.0-36.0) g/dL RDW Std Deviation 45.0 (36.4-46.3) fL RDW Coeff of Golden 14.2 (11.5-14.5) % Plt Count 187 (130-400) K/uL MPV 10.6 (9.4-12.4) fL Immature Gran % (Auto) 0.3 % Neut % (Auto) 69.0 % Lymph % (Auto) 17.3 % [place] % (Auto) 9.7 % Eos % (Auto) 3.2 % Baso % (Auto) 0.5 % Neut # (Auto) 5.13 (1.4-6.5) K/uL Lymph # (Auto) 1.29 (1.2-3.4) K/uL [place] # (Auto) 0.72 (0.24-0.82) K/uL Eos # (Auto) 0.24 (0-0.50) K/uL Baso # (Auto) 0.04 (0-0.2) K/uL Immature Gran # (Auto) 0.02 (0.00-0.02) K/uL Sodium 135 L (136-145) mmol/L Potassium 5.4 H (3.5-5.1) mmol/L Chloride 95 L (98-107) mmol/L Carbon Dioxide 36 H (21-32) mmol/L Anion Gap 4 (3-11) BUN 34 H (6-23) mg/dl Creatinine 1.73 H (0.6-1.4) mg/dl Est Cr Clr Drug Dosing 67.0 ml/min Est GFR ( Amer) 48.3 ml/min Est GFR (Non-Af Amer) 41.7 ml/min BUN/Creatinine Ratio 19.7 (10-20) Glucose 97 (70-99(Fasting)) mg/dl Calcium 9.4 (8.5-10.1) mg/dl Total Bilirubin 0.8 (0.2-1.0) mg/dl AST 20 (13-39) U/L ALT 18 (7-52) U/L Alkaline Phosphatase 68 (34-104) U/L Total Protein 7.1 (6.0-8.3) gm/dl Albumin 3.7 (3.4-5.0) gm/dl Globulin 3.4 (2.5-4.0) gm/dl Albumin/Globulin Ratio 1.1 (0.9-2) SARS-CoV-2, RNA, NAAT NEGATIVE (NEGATIVE) ECG Data Additional Comments: Normal sinus rhythm @[address] elevation Low voltage QRS Poor R wave progression, consider anterior [place] vs. lead placement vs. LVH Borderline ECG When compared with ECG of 29-MAY-2022 12:19, Premature atrial complexes are no longer Present MDM Narrative Physical exam and history were performed. Nursing notes, EMR, and Medication List were personally reviewed. Patient appears to have abnormal outpatient labs through the [facility] system. I did engage with case management who were able to confirm that he had outpatient potassium of 5.6 as well as elevated BUN and creatinine. These do seem new from his hospitalization last week. IV access was established and labs are obtained today. EKG was performed without ST elevation. Case was discussed with my attending physician. An order was placed for continuous cardiac monitoring. The monitor shows a rate of 77 with normal sinus rhythm. Patient's blood work is as above and was reviewed. He does not have a significantly elevated white blood cell count, gross anemia, or bandemia. His potassium is 5.4 and creatinine are 1.73. He is slightly hyponatremic at 135. Urine is without evidence of infection. COVID is negative. Overall the patient does not seem well for discharge home. He was sent in by cardiology due to his electrolyte imbalances. He does have concerning recent history of cardiac stenting as well. At this time the case was discussed with the on-call hospitalist who agreed to evaluate the patient here in the ER. Please see their dictation for further patient course, plan, and disposition. The chart was completed utilizing [employer] Voice Recognition Software. Grammatical errors, random word insertions, pronoun errors, and incomplete sentences are an occasional consequence of this system due to software limitations, ambient noise, and hardware issues. Any formal questions or concerns about the content, text, or information contained within the body of this dictation should be directly addressed to the provider for clarification. . Impression & Plan Acute hyperkalemia, PEDRO (acute kidney injury) Discharge Plan Visit Data Chief Complaint: Abnormal Labs/Diagnostic Testing Stated Complaint: ABNORMAL LABS, DR MAGAÑA REF ED Provider: Chris Juan ED Midlevel Provider: Arcadio Pandey Discharge Problem: Acute hyperkalemia, PEDRO (acute kidney injury) Patient Disposition: Admitted As Inpatient Discharge Instructions Interventions: ED Discharge Assessment Last Done: 06/12/22 00:11
== END 2022-06-12 16:05 | disposition home or self-care (01) | DRG 683 ==
LOC: ED 17:04 → EDINP 23:07 → 2W 06-12 00:11

== ENCOUNTER 2022-08-12 14:12 | Inpatient (IN) ==
--- NOTE | 2022-08-12 14:31 | Emergency Department Note ---
Impression & Plan Chest pain ADMIT ED Provider Note HPI: The patient is a 61-year-old male with history of coronary artery disease, diastolic heart failure, hypertension, hyperlipidemia, who presents the emergency department with chief complaint of transient lightheadedness and chest pressure that occurred about an hour and a half prior to arrival when he was at his doctor's office. Patient states that he went to his appointment earlier today at 1245 and began to feel a sensation of lightheadedness, states that he also felt some left-sided chest "pressure". Patient states the symptoms are now resolved. He states he has had them intermittently in the mornings after he takes his medication over the past several weeks. Patient states that he was at his PCPs office at [facility] and they took his blood pressure and it was noted to be low. Patient states he was then referred to the emergency department by ambulance. On arrival patient denies any complaint of chest pain, states that he feels well, he is otherwise in no acute distress on my initial assessment and without focal deficits. ROS: -Cardio: Transient left-sided chest pressure -Neuro: Transient lightheadedness *10 point review systems was conducted and is otherwise negative unless stated above *Outpatient medications and allergy history reviewed PE: General: Alert HEENT: Normocephalic, trachea midline Eyes: Extraocular eye movement is intact, no scleral erythema Pulmonary: Clear to auscultation bilaterally, no wheezing Cardio: Regular rate and rhythm GI: Abdomen is soft, nontender : No suprapubic tenderness MSK: No evidence of trauma or malformation of the extremities, no edema Skin: No evidence of rash Neuro: Alert, no focal deficits Psychiatric: Cooperative vehicle monitor technician: - An order was placed for continuous cardiac monitoring - Patient was noted to be in sinus rhythm with a rate of 80 EKG: Rate: 78 Rhythm: Normal sinus rhythm Intervals: Within normal limits ST changes: No ST elevation Time: 1421 Interventions provided in ED: -IV fluid bolus, aspirin Medical Decision Making: Patient presented to the emergency department with a transient episode of chest pain, he states he also had an episode of lightheadedness, this occurred earlier today at his primary care doctor's office. He was referred to the emergency department by ambulance given his history of coronary artery disease. On arrival the patient states that his symptoms are largely improved. IV was established, lab work obtained, patient was placed on nuclear monitoring technician when he a rrived. EKG shows normal sinus rhythm without any acute ischemic changes. Patient does mention later history of provoked PE and he states he is no longer on warfarin, CT angiography of the chest was therefore obtained that shows no evidence of any acute PE, does show evidence of what appeared to be chronic pulmonary emboli. Troponin is negative, the remainder of the patient's lab work is without critical findings. Baseline CKD with a creatinine of 1.83, patient did receive CT angiography and was given an IV fluid bolus. On my reassessment the patient is resting comfortably on his baseline 2 L nasal cannula oxygen, vital signs are stable, patient states on further history when discussing admission versus discharge that he has had some exertional component to his pain recently, mentions that he was getting chest discomfort when ambulating longer distances at the grocery store. CT scan also does show evidence of extensive coronary artery calcifications and he does have a history of stent placement. I feel that he is high risk for discharge and I recommended admission, patient and his are in agreement. [facility] and I discussed the case with the on-call midlevel provider, Lucy weems, patient was given p.o. aspirin and he was admitted in stable condition for further care. Diagnosis: 1. Chest pain, acute 2. History of coronary artery disease , s/p stent Disposition: Admission Mauro Fink DO Emergency Medicine Past Med/Surg History Medical History Pulmonary embolism Volvulus Surgical History Hx of appendectomy same time as colon resection Hx of exploratory laparotomy s/p colectomy 2009 Family History Father Hx of CABG Brother Diabetes Uncle Cancer Social History Smoking Status: Never smoker Second Hand Exposure: Yes; Hx Alcohol Use: No Hx Substance Use: No Preferred Language: Indonesian Communication Ability: Effective Cost Analyst Required: No Beliefs That Will Affect Care: None marital status: Single Current Living Situation: Significant Other Current Living Situation Comment: with girlfriend current occupational status: employed 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 Feels Safe at Home: Yes Assistive Devices: Oxygen - Continuous Allergies Allergies Allergy/AdvReac Type Severity Reaction Status Date / Time smallpox vaccine,live Allergy Severe edema Verified 08/12/22 17:12 Home Meds Home Medications Medication Instructions Recorded Confirmed ascorbic acid (vitamin C) 500 mg 500 mg PO DAILY 05/28/22 08/12/22 tablet (Vitamin C) aspirin 81 mg chewable tablet 81 mg PO DAILY 05/28/22 08/12/22 multivitamin 1 tab PO DAILY 05/28/22 08/12/22 furosemide 40 mg tablet 40 mg PO QAM 08/12/22 08/12/22 Previous Rx's Medication Instructions Recorded Oxygen Home #1 ea 06/04/22 carvedilol 12.5 mg tablet 12.5 mg PO BID #60 tabs 06/04/22 clopidogrel 75 mg tablet 75 mg PO QAM #30 tabs 06/04/22 losartan 50 mg tablet 50 mg PO QAM #30 tabs 06/04/22 Results & Data (ED) Vital Signs Vital Signs - 24 hr 08/12/22 14:02 08/12/22 14:02 08/12/22 18:00 Temperature 36.9 C Temperature Source Oral Pulse Rate 77 Pulse Rate [Apical] 69 Respiratory Rate 22 14 Respiratory Effort / Characteristics Non-Labored Spontaneous Respiratory Depth Normal Respiratory Pattern Regular Blood Pressure 134/82 Blood Pressure [Right Arm] 169/92 H Blood Pressure Mean 99 Blood Pressure Mean [Right Arm] 117 Blood Pressure Position Lying Pulse Oximetry 100 100 99 Oxygen Delivery Method Nasal Cannula Nasal Cannula Oxygen Flow Rate 2 2 Sepsis Recent Fever Within 48 Hours No Sepsis New/Unexplained Change in Mental Status No Sepsis Action Taken by Nursing No Action Required Laboratory Data Result diagrams: 08/12/22 14:25 08/12/22 14:25 Lab Results 08/12/22 08/12/22 08/12/22 Range/Units 14:25 14:25 14:25 WBC 7.80 (4.8-10.8) K/ul RBC 4.25 L (4.63-6.08) M/uL Hgb 12.3 L (14.0-18.0) g/dl Hct 36.5 L (40.1-51.0) % MCV 85.9 (80.0-100.0) fL MCH 28.9 (25.0-34.0) pg MCHC 33.7 (32.0-36.0) g/dL RDW Std Deviation 49.1 H (36.4-46.3) fL RDW Coeff of Golden 15.8 H (11.5-14.5) % Plt Count 146 (130-400) K/uL MPV 9.7 (9.4-12.4) fL Immature Gran % (Auto) 0.4 % Neut % (Auto) 66.7 % Lymph % (Auto) 21.5 % [place] % (Auto) 8.6 % Eos % (Auto) 2.4 % Baso % (Auto) 0.4 % Neut # (Auto) 5.20 (1.4-6.5) K/uL Lymph # (Auto) 1.68 (1.2-3.4) K/uL [place] # (Auto) 0.67 (0.24-0.82) K/uL Eos # (Auto) 0.19 (0-0.50) K/uL Baso # (Auto) 0.03 (0-0.2) K/uL Immature Gran # (Auto) 0.03 H (0.00-0.02) K/uL PT 11.4 (9.0-12.0) Seconds INR 1.1 (0.9-1.1) APTT 25.9 (21.0-31.0) Seconds PTT Ratio 0.9 Sodium 141 (136-145) mmol/L Potassium 4.4 (3.5-5.1) mmol/L Chloride 104 (98-107) mmol/L Carbon Dioxide 29 (21-32) mmol/L Anion Gap 8 (3-11) BUN 26 H (6-23) mg/dl Creatinine 1.83 H (0.6-1.4) mg/dl Est Cr Clr Drug Dosing 60.3 ml/min Est GFR ( Amer) 45.1 ml/min Est GFR (Non-Af Amer) 38.9 ml/min BUN/Creatinine Ratio 14.2 (10-20) Glucose 120 H (70-99(Fasting)) mg/dl Calcium 9.5 (8.5-10.1) mg/dl Total Bilirubin 0.7 (0.2-1.0) mg/dl AST 19 (13-39) U/L ALT 22 (7-52) U/L Alkaline Phosphatase 57 (34-104) U/L Troponin I High Sens 14.3 D (0-20) pg/ml Total Protein 6.9 (6.0-8.3) gm/dl Albumin 3.7 (3.4-5.0) gm/dl Globulin 3.2 (2.5-4.0) gm/dl Albumin/Globulin Ratio 1.2 (0.9-2) Lipase 12 (11-82) U/L Administered Medications Discontinued Medications Aspirin (Aspirin Chew 324 Mg) 324 mg PO NOW STA Stop: 08/12/22 17:22 Last Admin: 08/12/22 17:33 Dose: 324 mg Documented By: ELIZABETH Sodium Chloride (Nss) 250 mls @ 999 mls/hr IV .Q16M ONE Stop: 08/12/22 17:35 Last Infusion: 08/12/22 17:51 Dose: 0 mls/hr Documented By: Admin: 08/12/22 17:34 Dose: 999 mls/hr Documented By: ELIZABETH Ioversol (Optiray 320 500ml) 111 ml IV ONCE ONE Stop: 08/12/22 16:25 Last Admin: 08/12/22 16:25 Dose: 111 ml Documented By: SAADIA Imaging Data Radiologist's Impression: Chest X-Ray 08/12/22 14:23 XR chest 1V portable CLINICAL HISTORY: Atypical chest pain. COMPARISON STUDY: Chest radiograph and chest CT May 28, 2022. FINDINGS: There is no pneumothorax. Small left and trace right pleural fusions have decreased since prior chest radiograph and chest CT. Left basilar opacity is noted. Cardiomegaly is unchanged. There is pulmonary vascular congestion w ithout overt pulmonary edema. IMPRESSION: 1. Small left and trace right pleural effusions, decreased since prior exam. Left basilar opacity which favors atelectasis although pneumonia could appear similar. 2. Cardiomegaly. Pulmonary vascular congestion without overt pulmonary edema. ACT 112: Negative or not required by law. Electronically signed by: Darren Francis M.D. 08/12/2022 2:45 PM Chest CTA 08/12/22 14:49 CT ANGIOGRAM OF THE CHEST CLINICAL HISTORY: Dyspnea. COMPARISON STUDY: Chest x-ray dated 08/12/2022. Chest CT dated 05/28/2022. TECHNIQUE: Following the IV administration of 111 cc of Optiray 320, CT angiogram of the chest was performed from the upper abdomen to the thoracic inlet utilizing the pulmonary embolus protocol. Images are reviewed in the axial, sagittal, and coronal planes. 3-D MIPS images are created and assessed. IV contrast was administered without complication. A dose lowering technique was utilized adhering to the principles of ALARA. CT DOSE: 927.85 mGy.cm FINDINGS: Thyroid: Imaged portions of the thyroid gland are normal in size and attenuation. Thoracic aorta: The thoracic aorta is normal in caliber and demonstrates standard 3-vessel arch anatomy. No dissection is seen. Pulmonary vasculature: The pulmonary trunk is normal in caliber. There are no filling defects identified in main, lobar, or segmental pulmonary branches typical for acute pulmonary embolus. There is trace chronic pulmonary embolus within the left lower lobe pulmonary artery seen on image #165 and within the right lower lobe pulmonary artery on image #127. Heart: The heart is enlarged and without pericardial effusion. The coronary arteries are densely calcified. Lungs and pleural spaces: There are small to moderate pleural effusions, left larger than right with dependent consolidation. Secretions are noted in the trachea. A calcified granuloma seen at the left apex. Mediastinum: There is no mediastinal lymphadenopathy. [place]: Clear. Axillae: There is no axillary lymphadenopathy. Upper abdomen: There is a small hiatal hernia. Partially visualized upper abdominal viscera is otherwise within normal limits. Skeletal structures: The skeletal structures are osteopenic. Degenerative change is noted throughout the thoracic spine with evidence of DISH. Arthritic change is noted in the shoulders. No lytic or blastic bony lesions are seen. IMPRESSION: 1. There is no evidence of acute pulmonary embolus in the main, lobar, or segmental pulmonary arteries. 2. Trace chronic pulmonary embolus is seen within both lower lobe pulmonary arteries. 3. There are ioxos-[id number] pleural effusions, left larger than right with associated bibasilar consolidation. This likely represents atelectasis and clinical correlation will be required. The effusions have somewhat decreased in size as compared to 05/28/2022. 4. Cardiomegaly with advanced coronary artery calcification. 5. Additional findings as above. ACT 112: Negative or not required by law. Electronically signed by: Christopher Dodson M.D. 08/12/2022 4:38 PM Discharge Plan Visit Data Chief Complaint: Chest Pain Stated Complaint: chest pain ED Provider: Mauro Fink Discharge Problem: Chest pain Patient Disposition: Admitted As Inpatient Forms Stand Alone Forms: [facility] Prescriptions Prescriptions: No Action multivitamin Tablet 1 tab PO DAILY ascorbic acid (vitamin C) [Vitamin C] 500 mg Tablet 500 mg PO DAILY aspirin 81 mg Tablet,Chewable 81 mg PO DAILY clopidogrel 75 mg Tablet 75 mg PO QAM Qty: 30 0RF carvedilol 12.5 mg Tablet 12.5 mg PO BID Qty: 60 0RF losartan 50 mg Tablet 50 mg PO QAM Qty: 30 0RF (DME) Oxygen Home Liters Per Minute See Rx Instructions .Route Qty: 1 0RF Rx Instructions: As directed furosemide 40 mg tablet 40 mg PO QAM Rx Instructions: may take an additional tablet as needed for fluid retention and weight gain Referrals Referrals: Mauro Hurst MD [Primary Care Provider] -
[2022-08-12 14:42] LABS: Basophils # (auto) 0.03 K/uL (0-0.2); Basophils % (auto) 0.4 %; Eosinophils # (auto) 0.19 K/uL (0-0.50); Eosinophils % (auto) 2.4 %; Hematocrit (blood only) 36.5 % (40.1-51.0); Hemoglobin 12.3 g/dl (14.0-18.0); Immature Granulocytes # (auto) 0.03 K/uL (0.00-0.02); Immature Granulocytes % (auto) 0.4 %; Lymphocytes # (auto) 1.68 K/uL (1.2-3.4); Lymphocytes % (auto) 21.5 %; Mean Corpuscular Hemoglobin 28.9 pg (25.0-34.0); Mean Corpuscular Hgb Conc 33.7 g/dL (32.0-36.0); Mean Corpuscular Volume 85.9 fL (80.0-100.0); Mean Platelet Volume 9.7 fL (9.4-12.4); Monocytes # (auto) 0.67 K/uL (0.24-0.82); Monocytes % (auto) 8.6 %; Neutrophils % (auto) 66.7 %; Platelet Count 146 K/uL (130-400); RDW Coefficient of Variation 15.8 % (11.5-14.5); RDW Standard Deviation 49.1 fL (36.4-46.3); Red Blood Count 4.25 M/uL (4.63-6.08)
--- NOTE | 2022-08-12 14:46 | XRay Report ---
XR chest 1V portable CLINICAL HISTORY: Atypical chest pain. COMPARISON STUDY: Chest radiograph and chest CT May 28, 2022. FINDINGS: There is no pneumothorax. Small left and trace right pleural fusions have decreased since p rior chest radiograph and chest CT. Left basilar opacity is noted. Cardiomegaly is unchanged. There i s pulmonary vascular congestion without overt pulmonary edema. IMPRESSION: 1. Small left and trace right pleural effusions, decreased since prior exam. Left basilar opacity whi ch favors atelectasis although pneumonia could appear similar. 2. Cardiomegaly. Pulmonary vascular congestion without overt pulmonary edema. ACT 112: Negative or not required by law. Electronically signed by: Darren Francis M.D. 08/12/2022 2:45 PM
[2022-08-12 15:01] LABS: INR 1.1 (0.9-1.1); Partial Thromboplastin Ratio 0.9; Partial Thromboplastin Time 25.9 Seconds (21.0-31.0); Prothrombin Time 11.4 Seconds (9.0-12.0)
[2022-08-12 15:16] LABS: Troponin I High Sensitivity 14.3 pg/ml (0-20)
[2022-08-12 15:56] LABS: Albumin Globulin Ratio 1.2 (0.9-2); Albumin Level 3.7 gm/dl (3.4-5.0); BUN Creatinine Ratio 14.2 (10-20); Bilirubin,Total 0.7 mg/dl (0.2-1.0); Calcium 9.5 mg/dl (8.5-10.1); Creatinine Clr Calc Pharmacy 60.3 ml/min; Est GFR (African American) 45.1 ml/min; Est GFR (Non-African American) 38.9 ml/min; Globulin 3.2 gm/dl (2.5-4.0); Potassium 4.4 mmol/L (3.5-5.1); Total Protein 6.9 gm/dl (6.0-8.3)
[2022-08-12] MEDS ORDERED: OPTIRAY 320 500ml IV ONE (16:24)
--- NOTE | 2022-08-12 16:40 | CT Scan Report ---
CT ANGIOGRAM OF THE CHEST CLINICAL HISTORY: Dyspnea. COMPARISON STUDY: Chest x-ray dated 08/12/2022. Chest CT dated 05/28/2022. TECHNIQUE: Following the IV administration of 111 cc of Optiray 320, CT angiogram of the chest was pe rformed from the upper abdomen to the thoracic inlet utilizing the pulmonary embolus protocol. Images are reviewed in the axial, sagittal, and coronal planes. 3-D MIPS images are created and assessed. I V contrast was administered without complication. A dose lowering technique was utilized adhering to the principles of ALARA. CT DOSE: 927.85 mGy.cm FINDINGS: Thyroid: Imaged portions of the thyroid gland are normal in size and attenuation. Thoracic aorta: The thoracic aorta is normal in caliber and demonstrates standard 3-vessel arch anato my. No dissection is seen. Pulmonary vasculature: The pulmonary trunk is normal in caliber. There are no filling defects identif ied in main, lobar, or segmental pulmonary branches typical for acute pulmonary embolus. There is tra ce chronic pulmonary embolus within the left lower lobe pulmonary artery seen on image #165 and withi n the right lower lobe pulmonary artery on image #127. Heart: The heart is enlarged and without pericardial effusion. The coronary arteries are densely calc ified. Lungs and pleural spaces: There are small to moderate pleural effusions, left larger than right with dependent consolidation. Secretions are noted in the trachea. A calcified granuloma seen at the left apex. Mediastinum: There is no mediastinal lymphadenopathy. Rochelle: Clear. Axillae: There is no axillary lymphadenopathy. Upper abdomen: There is a small hiatal hernia. Partially visualized upper abdominal viscera is otherw ise within normal limits. Skeletal structures: The skeletal structures are osteopenic. Degenerative change is noted throughout the thoracic spine with evidence of DISH. Arthritic change is noted in the shoulders. No lytic or frida stic bony lesions are seen. IMPRESSION: 1. There is no evidence of acute pulmonary embolus in the main, lobar, or segmental pulmonary arterie s. 2. Trace chronic pulmonary embolus is seen within both lower lobe pulmonary arteries. 3. There are [id number] pleural effusions, left larger than right with associated bibasilar co nsolidation. This likely represents atelectasis and clinical correlation will be required. The effusi ons have somewhat decreased in size as compared to 05/28/2022. 4. Cardiomegaly with advanced coronary artery calcification. 5. Additional findings as above. ACT 112: Negative or not required by law. Electronically signed by: Christopher Dodson M.D. 08/12/2022 4:38 PM
[2022-08-12] MEDS ORDERED: SODIUM CHLORIDE 0.9% 250 ML IV ONE (17:20)
[2022-08-12] MEDS ORDERED: ASPIRIN CHEW 324 MG PO STA (17:21)
--- NOTE | 2022-08-12 20:21 | History & Physical Report ---
Date of Service August 12, 2022 Assessment & Plan (1) Near syncope: Plan: Admit to telemetry Patient presenting by referral of cardiology office for evaluation of near syncopal events. Symptoms seem to be medication induced. Monitor orthostatic BPs Will hold furosemide, reduce losartan to 25 mg daily, continue home dose of carvedilol for now. Given somewhat recent cardiac intervention, will consult cardiology for further medication management recommendations (2) CAD (coronary artery disease): Plan: Patient reports some chest pressure with near syncopal events Initial HS trop negative, EKG without acute ST changes. Defer need for echo to cardiology (3) Chronic diastolic CHF (congestive heart failure): Plan: Seems to be hypovolemic with episodes of near syncope and hypotension Holding furosemide as above. Previous use of spironolactone caused hyperkalemia. Monitor volume status closely (4) CKD (chronic kidney disease), stage III: Plan: Recent baseline creatinine mid - high 1s Creatinine 1.8 today Monitor renal functions (5) DM type 2 (diabetes mellitus, type 2): Plan: Hgb A1c 7.0 Patient currently trialing diet control (6) Chronic respiratory failure with hypoxia: Plan: Was discharged on 2 L of O2 continuous after admission in May Also suspected underlying sleep apnea, following sleep medicine, sleep study pending (7) DVT prophylaxis: Plan: SQ heparin (8) Acute kidney injury: History of Present Illness Chief Complaint: Near syncope Primary Care Provider: Mauro Hurst MD 61-year-old male with PMH CAD (s/p CHUCKY to left circumflex, 100% RCA occlusion 06/03/2022), chronic diastolic CHF, chronic hypoxic respiratory failure on 2 L of O2, HTN, DM type II, dyslipidemia, and other problems listed below who presents to the ED for evaluation of near syncope. Patient reports he initially felt well after his discharge from the hospital in May. However shortly after re turning home, patient reports he developed episodes of lightheadedness, tunnel vision. Patient reports passing out briefly twice since that time. Episodes seem to occur about 1 to 2 hours after taking morning medications and with standing/exertion. Patient reports associated chest pressure. Patient was seen by cardiology 2 weeks ago and Lasix was reduced from 40 mg twice daily to 40 mg daily. Patient reports that improved his symptoms for a couple of days however they quickly returned. He states he monitors his blood pressure at home and prior to taking his BP medications, systolic blood pressure is usually in the 110s. After taking his medication, BPs sometimes drop to the 80s. Patient was seen in the cardiology clinic today for follow-up and had an episode of near syncope. Patient was then referred to the ED for further evaluation. Patient has had a few episodes of vomiting and mild abdominal pain during this time as well. This does not seem to correlate with his symptoms. Patient reports he continues to lose weight from his hospitalization. Lower extremity edema also continues to improve. Patient denies fevers and chills. No urinary symptoms. In the ED, patient is hemodynamically stable. Initial HS troponin negative, EKG without acute ST changes. Allergies Allergy/AdvReac Type Severity Reaction Status Date / Time smallpox vaccine,live Allergy Severe edema Verified 08/12/22 17:12 Home Medications Medication Instructions Recorded Confirmed Type ascorbic acid (vitamin C) 500 mg 500 mg PO DAILY 05/28/22 08/12/22 History tablet (Vitamin C) aspirin 81 mg chewable tablet 81 mg PO DAILY 05/28/22 08/12/22 History multivitamin 1 tab PO DAILY 05/28/22 08/12/22 History Oxygen Home #1 ea 06/04/22 08/12/22 Rx carvedilol 12.5 mg tablet 12.5 mg PO BID #60 tabs 06/04/22 08/12/22 Rx clopidogrel 75 mg tablet 75 mg PO QAM #30 tabs 06/04/22 08/12/22 Rx losartan 50 mg tablet 50 mg PO QAM #30 tabs 06/04/22 08/12/22 Rx atorvastatin 40 mg tablet 40 mg PO DAILY 08/12/22 08/12/22 History furosemide 40 mg tablet 40 mg PO QAM 08/12/22 08/12/22 History Past Med/Surg History Medical History CAD (coronary artery disease) RCA [employer] May 2022 Summary of Findings 80% mid Lcx 100% mid RCA 40% distal Left main 40% ostial/proximal LAD (FFR negative, 0.89) 90% mid D2 (small vessel) PCI OM2 Chronic diastolic CHF (congestive heart failure) Chronic respiratory failure with hypoxia CKD (chronic kidney disease), stage III DMII (diabetes mellitus, type 2) Dyslipidemia, goal LDL below 70 Family history of ischemic heart disease History of pulmonary embolism Hypertension Morbid obesity Presence of drug coated stent in left circumflex coronary artery Volvulus Surgical History Hx of appendectomy same time as colon resection Hx of exploratory laparotomy s/p colectomy 2009 Family History Father Hx of CABG Brother Diabetes Uncle Cancer Social History Smoking Status: Never smoker Second Hand Exposure: Yes; Hx Alcohol Use: No Hx Substance Use: No Preferred Language: Ghanaian Communication Ability: Effective Implementation Analyst Required: No Beliefs That Will Affect Care: None marital status: Single Current Living Situation: Significant Other Current Living Situation Comment: with girlfriend current occupational status: employed 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 Feels Safe at Home: Yes Assistive Devices: Oxygen - Continuous Review of Systems Review of Systems: ROS per HPI, all other systems reviewed and negative Physical Exam Constitutional: WD/WN, vitals as above + obese Eyes: PERRL, conjunctivae normal, anicteric sclerae ENMT: external ear and nose normal, oropharynx normal Respiratory: normal respiratory effort, lungs clear to auscultation Cardiovascular: Rate/Rhythm: regular rate and regular rhythm Vessels: normal peripheral pulses Extremities: + edema (+1 edema BLE) Gastrointestinal (Abdomen): normal bowel sounds, soft, nontender, no hepatosplenomegaly Musculoskeletal: no cyanosis or clubbing, extremities motor strength 5/5 Skin: no rashes, warm and dry Neurologic: PERRL, EOMI, accommodation nl, no face palsy, no dysarthria Psychiatric: A+Ox3, euthymic affect Results & Data Results & Data ([facility]) Vital Signs (Past 12 Hours) Vital Signs Temp Pulse Pulse Resp BP BP Pulse Ox 08/12/22 19:01 69 18 170/93 H 99 08/12/22 18:39 69 19 169/92 H 99 08/12/22 18:00 69 14 169/92 H 99 08/12/22 14:02 100 08/12/22 14:02 36.9 C 77 22 134/82 100 O2 Del Method O2 Flow Rate 08/12/22 19:01 Room Air 08/12/22 18:39 Room Air 08/12/22 18:00 08/12/22 14:02 Nasal Cannula 2 08/12/22 14:02 Nasal Cannula 2 Laboratory Results Short CBC 08/12/22 Range/Units 14:25 WBC 7.80 (4.8-10.8) K/ul Hgb 12.3 L (14.0-18.0) g/dl Hct 36.5 L (40.1-51.0) % Plt Count 146 (130-400) K/uL BMP 08/12/22 14:25 Sodium 141 Potassium 4.4 Chloride 104 Carbon Dioxide 29 BUN 26 H Creatinine 1.83 H Glucose 120 H Calcium 9.5 Liver Function 08/12/22 Range/Units 14:25 Total Bilirubin 0.7 (0.2-1.0) mg/dl AST 19 (13-39) U/L ALT 22 (7-52) U/L Alkaline Phosphatase 57 (34-104) U/L Albumin 3.7 (3.4-5.0) gm/dl Diagnostic Findings Chest X-Ray 08/12/22 14:23 XR chest 1V portable CLINICAL HISTORY: Atypical chest pain. COMPARISON STUDY: Chest radiograph and chest CT May 28, 2022. FINDINGS: There is no pneumothorax. Small left and trace right pleural fusions have decreased since prior chest radiograph and chest CT. Left basilar opacity is noted. Cardiomegaly is unchanged. There is pulmonary vascular congestion without overt pulmonary edema. IMPRESSION: 1. Small left and trace right pleural effusions, decreased since prior exam. Left basilar opacity which favors atelectasis although pneumonia could appear similar. 2. Cardiomegaly. Pulmonary vascular congestion without overt pulmonary edema. ACT 112: Negative or not required by law. Electronically signed by: Darren Francis M.D. 08/12/2022 2:45 PM Chest CTA 08/12/22 14:49 CT ANGIOGRAM OF THE CHEST CLINICAL HISTORY: Dyspnea. COMPARISON STUDY: Chest x-ray dated 08/12/2022. Chest CT dated 05/28/2022. TECHNIQUE: Following the IV administration of 111 cc of Optiray 320, CT angiogram of the chest was performed from the upper abdomen to the thoracic inlet utilizing the pulmonary embolus protocol. Images are reviewed in the axial, sagittal, and coronal planes. 3-D MIPS images are created and assessed. IV contrast was administered without complication. A dose lowering technique was utilized adhering to the principles of ALARA. CT DOSE: 927.85 mGy.cm FINDINGS: Thyroid: Imaged portions of the thyroid gland are normal in size and attenuation. Thoracic aorta: The thoracic aorta is normal in caliber and demonstrates standard 3-vessel arch anatomy. No dissection is seen. Pulmonary vasculature: The pulmonary trunk is normal in caliber. There are no filling defects identified in main, lobar, or segmental pulmonary branches typical for acute pulmonary embolus. There is trace chronic pulmonary embolus within the left lower lobe pulmonary artery seen on image #165 and within the right lower lobe pulmonary artery on image #127. Heart: The heart is enlarged and without pericardial effusion. The coronary arteries are densely calcified. Lungs and pleural spaces: There are small to moderate pleural effusions, left larger than right with dependent consolidation. Secretions are noted in the trachea. A calcified granuloma seen at the left apex. Mediastinum: There is no mediastinal lymphadenopathy. Rochelle: Clear. Axillae: There is no axillary lymphadenopathy. Upper abdomen: There is a small hiatal hernia. Partially visualized upper abdominal viscera is otherwise within normal limits. Skeletal structures: The skeletal structures are osteopenic. Degenerative change is noted throughout the thoracic spine with evidence of DISH. Arthritic change is noted in the shoulders. No lytic or blastic bony lesions are seen. IMPRESSION: 1. There is no evidence of acute pulmonary embolus in the main, lobar, or segmental pulmonary arteries. 2. Trace chronic pulmonary embolus is seen within both lower lobe pulmonary arteries. 3. There are xoxfo-cp-apyapsba pleural effusions, left larger than right with associated bibasilar consolidation. This likely represents atelectasis and clinical correlation will be required. The effusions have somewhat decreased in size as compared to 05/28/2022. 4. Cardiomegaly with advanced coronary artery calcification. 5. Additional findings as above. ACT 112: Negative or not required by law. Electronically signed by: Christopher Dodson M.D. 08/12/2022 4:38 PM Code Status & VTE Plan VTE Prophylaxis Plan VTE Prophylaxis will be ordered: Yes Supervising Physician Co-Signing Physician Notes The patient is a 61-year-old man who started receiving medical care in May when he presented in acute heart failure and was found to have CAD and diabetes. Since that time he has been started on new medications including atorvastatin, carvedilol, clopidogrel, furosemide, and losartan. He is also lost 40 pounds since that time with diet and exercise modifications as instructed. He was on spironolactone which was stopped at a different visit. He reports lightheadedness specifically after taking his medications in the morning. He is appearing to have medication induced orthostasis and reports measurements of his systolic blood pressures in the 80s after having been normal prior to taking his morning meds. As noted above medication changes have taken place but he cont inues to have symptoms. He does report a mild amount of chest pressure when he is acutely lightheaded but otherwise denies chest pain or shortness of breath. He has no evidence of heart failure today. On physical exam the patient is an obese man in no acute distress who is oxygenating well on 2 L nasal cannula and in no acute distress. There is no evidence of peripheral edema. Cardiac exam reveals S1/S2 present with no murmurs gallops or rubs. Lungs are clear to auscultation bilaterally. Abdomen is protuberant, nontender nondistended. There is no focal neurologic or musculoskeletal findings. Skin is warm and dry Work-up in the ER includes a CBC within normal limits, BNP that is normal aside from worsened renal function. BUN is 26 creatinine 1.83. Glucose is 120 and he reports random glucose checks at home to be controlled. Highly sensitive troponin is negative at 14. Lipase is 12 SARS-CoV-2 is negative. A CTA of the chest reveals no acute pulmonary embolus with trace chronic pulmonary embolus seen in both lower lobe pulmonary arteries. There are small to moderate pleural effusions left larger than right with associated bibasilar consolidation likely representing atelectasis. EKG reveals normal sinus rhythm without ST elevation. Overall this is a 61-year-old man recently diagnosed with heart disease and diabetes in the setting of morbid obesity who has appropriately lost 40 pounds of weight. He is describing nonspecific chest pressure which is concerning with recent coronary findings and risk. This may be from progressed CAD or new anginal symptoms. Active ACS seems unlikely given his normal troponin and lack of ongoing symptoms with symptoms precipitated mostly from medication administration. However, he has known CAD and multiple risk factors so will trend serial EKGs and troponin overnight. Will start heparin with the finding of bilateral PE on chest CT. Defer to rounding team to discuss options for ongoing anticoagulation with the patient tomorrow. Agree with medication modifications noted above including holding Lasix in setting of PEDRO base creat is 1.3), reducing losartan to 25mg daily, and continuing coreg. Appreciate further cardiology assessment and recommendations. Patient was also praised for weight loss efforts. Furthermore, with respect to DMII, he has not had a chance to discuss treatment options with his PCP yet, but plans to do this next week. Feroz, DO
[2022-08-12] MEDS ORDERED: HEPARIN SOD 5,000 UNIT/0.5 ML VIAL SQ SCH (22:01)
[2022-08-12] MEDS ORDERED: ACETAMINOPHEN 325 MG TAB PO PRN (22:01)
[2022-08-12] MEDS ORDERED: Heparin IV Adult Wt-Based Standard WITH Bolus Protocol IV SCH (22:13)
[2022-08-12] MEDS ORDERED: HEPARIN SOD (PORCINE) 1000 UNIT/ML IV ONE (22:25)
[2022-08-12] MEDS ORDERED: FLUARIX QUADRIVALENT 0.5 ML SYR IM ONE (22:39)
[2022-08-13] MEDS: carvediloL 12.5 MG TAB PO SCH ×3 (00:32→20:37)
[2022-08-13] MEDS: HEPARIN SODIUM/DEXTROSE 25,000 UNITS/500 ML BAG IV SCH ×2 (00:32→15:12)
--- NOTE | 2022-08-13 06:05 | Electrocardiogram Report ---
Test Reason : Blood Pressure : / mmHG Vent. Rate : 078 BPM Atrial Rate : 078 BPM P-R Int : 160 ms QRS Dur : 090 ms QT Int : 384 ms P-R-T Axes : 024 026 056 degrees QTc Int : 437 ms Normal sinus rhythm Low voltage QRS Inferior infarct , age undetermined Abnormal ECG When compared with ECG of 11-JUN-2022 18:27, T wave amplitude has decreased in Lateral leads Confirmed by Tito Singleton ([id number]) on 08/13/2022 6:05:06 AM Referred By: REFERRED SELF Confirmed By:Tito Singleton
[2022-08-13 08:33] LABS: BUN Creatinine Ratio 17.4 (10-20); Calcium 9.3 mg/dl (8.5-10.1); Creatinine Clr Calc Pharmacy 80.3 ml/min; Est GFR (African American) 63.5 ml/min; Est GFR (Non-African American) 54.8 ml/min; Potassium 4.2 mmol/L (3.5-5.1)
[2022-08-13 08:34] LABS: Partial Thromboplastin Ratio 3.8; Troponin I High Sensitivity 14.1 pg/ml (0-20)
[2022-08-13 08:47] LABS: Partial Thromboplastin Time 104.3 Seconds (21.0-31.0)
[2022-08-13 08:52] LABS: Basophils # (auto) 0.03 K/uL (0-0.2); Basophils % (auto) 0.5 %; Hematocrit (blood only) 37.2 % (40.1-51.0); Hemoglobin 12.6 g/dl (14.0-18.0); Immature Granulocytes # (auto) 0.02 K/uL (0.00-0.02); Immature Granulocytes % (auto) 0.3 %; Lymphocytes # (auto) 1.77 K/uL (1.2-3.4); Lymphocytes % (auto) 26.7 %; Mean Corpuscular Hgb Conc 33.9 g/dL (32.0-36.0); Mean Corpuscular Volume 85.5 fL (80.0-100.0); Mean Platelet Volume 9.8 fL (9.4-12.4); Monocytes % (auto) 7.5 %; Neutrophils # (auto) 4.12 K/uL (1.4-6.5); Platelet Count 141 K/uL (130-400); Platelet Estimate Normal (Normal); RDW Coefficient of Variation 15.6 % (11.5-14.5); RDW Standard Deviation 48.3 fL (36.4-46.3); Red Blood Count 4.35 M/uL (4.63-6.08); White Blood Count 6.64 K/ul (4.8-10.8)
[2022-08-13] MEDS: CLOPIDOGREL BISULFATE 75 MG TAB PO SCH (09:04)
[2022-08-13] MEDS: LOSARTAN POTASSIUM 25 MG TAB PO SCH (09:05)
[2022-08-13] MEDS: ATORVASTATIN 40 MG TAB PO SCH (09:05)
[2022-08-13] MEDS: ASPIRIN 81 MG ECTAB PO SCH (09:05)
--- NOTE | 2022-08-13 09:42 | Ultrasound Report ---
ULTRASOUND BILATERAL LOWER EXTREMITY VENOUS CLINICAL HISTORY: Chronic pulmonary embolus COMPARISON STUDY: Bilateral lower extremity venous ultrasound dated 09/15/2008. TECHNIQUE: Real-time, grayscale, and color Doppler sonography of the deep veins of the right and left lower extremity was performed from the inguinal crease to the calf. Compression and augmentation wer e utilized. FINDINGS: Right lower extremity: There is age indeterminate nonocclusive deep venous thrombosis seen throughout the right superficial femoral vein and within the popliteal vein. There is also age indeterminant de ep venous thrombosis seen in the right calf and the posterior tibial and peroneal veins. 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 The common femoral vein is patent and normally comp ressible. The greater saphenous vein and the profunda femoris vein at the junction with the common fe moral vein are clear. Left lower extremity: Age-indeterminate nonocclusive deep venous thrombosis is seen within the poplit eal vein. There is also age indeterminant deep venous thrombosis within the calf and the posterior ti bial and peroneal veins. The common femoral and superficial femoral veins are patent and normally com pressible. The greater saphenous vein and the profunda femoris vein at the junction with the common f emoral vein are clear. IMPRESSION: Age indeterminant deep venous thrombosis is seen in both legs as above. ACT 112: Negative or not required by law. Electronically signed by: Christopher Dodson M.D. 08/13/2022 9:40 AM
--- NOTE | 2022-08-13 11:49 | Cardiology Consultation ---
Date of Consultation August 13, 2022 Assessment & Plan (1) Near syncope: (2) Acute kidney injury: (3) Dehydration: (4) CAD (coronary artery disease): (5) Labile hypertension: (6) Pulmonary embolus: Plan Patient admitted yesterday after several syncopal/near syncope spells with reproducible hypotension and orthostatic vital signs in the outpatient cardio office. PEDRO noted on arrival. Started on IV fluids. Creatinine improving this morning. Found to have PE and b/l DVT on chest CTA and venous duplex. Remote history of PE in 2009. Chest CTA was negative in May 2022. Started on IV heparin. will likely need anticoagulation therapy for at least 3 months Update echo. Patient is s/p CHUCKY t the left circumflex in May 2022. Continue plavix. May stop ASA when initiating anticoagulation as he is 2 months post stent No anginal complaints. HS troponin is unremarkable. No acute EKG changes. Furosemide held on admission. Losartan reduced from 50 to 25 mg. However, patient remains hypertensive on vital signs. Monitor closely Continue gentle hydration but monitor for signs of volume overload. Hematology consulted by hospitalist. Case discussed with Dr. Sims. Will follow. Supervising Physician Co-Signing Physician Notes Patient was seen and personally examined. Assessment and plan as well outlined above patient presented with hypotension dizziness and orthostasis. Prerenal azotemia noted with findings likely in correlation with weight loss and current medications. Diuretics recently decreased but still in use Patient clinically and renal function improved today after IV hydration DVT and pulmonary embolus noted on examinations of uncertain chronicity but PE not noted on CTA of chest in May. Patient with history of past DVT though in the remote past status post abdominal surgery Plan as outlined above. Will follow in hospital Echocardiogram reviewed with stable findings no acute wall motion abnormalities or valvular disease normal to hyperdynamic LV function present History of Present Illness Reason for Consultation: Recurrent Syncope; Orthostatic Hypotension Requesting Physician: Dr. Latif Attending Physician: Dr. Sims History of Present Illness Patient is a 61 year old male who is known to [facility] cardiology (Dr. Cuello and MARVIN Neri). History includes: 1. Chronic diastolic CHF, NYHA class 2-3 2. 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 Chronic hypoxia due to heart failure and suspected OHS a. Following with sleep med for BULL 4. Hypertension with history of hypertensive urgency 5. CKD stage IIIA 6. Pulmonary embolus in 2009 Since stent placement in May, patient has made a conscious effort at diet/exercise/weight loss. Down about 20 lbs. With the weight loss, patient developed intermittent dizziness. He was evaluated several times over the last few months and antihypertensives and diuretics were reduced due to hypotension and dehydration. Most recently he was evaluated in the office yesterday by MARVIN Neri. He reported 2 episodes of syncope over the last few days. No injuries reported. While in clinic yesterday, patient was found to have recurrent hypotension and became suddenly lightheaded with diaphoresis and near syncope while in the exam room. EMS was summoned and brought to ER for evaluation/treatment. He also had significant positive orthostatic vital signs in clinic yesterday. Upon arrival to ER, creatinine was high, consistent with likely acute hypovolemia. He was started on gentle hydration. Furosemide held. Losartan reduced to 25 mg daily. Troponin unremarkable. EKG demonstrated NSR, no acute changes He was found to have possible chronic PE on echo and b/l DVT likely also chronic. Started on IV heparin. he reports being told he had a PE many years ago (2009) and was on Coumadin but patient self discontinued anticoagulation several months later. At time of consult this morning, patient feeling better. Denies recurrent lightheadedness or near syncope. No chest pain or dyspnea. No calf pain. No orthopnea, PND or increased edema. Started on IV heparin for ?chronic PE/DVT. Hospitalist is consulting hematology. PE was not present on Chest CTA in May 2022 when patient was admitted for CP/dyspnea. Allergies Allergy/AdvReac Type Severity Reaction Status Date / Time smallpox vaccine,live Allergy Severe edema Verified 08/12/22 17:12 Home Medications Medication Instructions Recorded Confirmed Type ascorbic acid (vitamin C) 500 mg 500 mg PO DAILY 05/28/22 08/12/22 History tablet (Vitamin C) aspirin 81 mg chewable tablet 81 mg PO DAILY 05/28/22 08/12/22 History multivitamin 1 tab PO DAILY 05/28/22 08/12/22 History Oxygen Home #1 ea 06/04/22 08/12/22 Rx carvedilol 12.5 mg tablet 12.5 mg PO BID #60 tabs 06/04/22 08/12/22 Rx clopidogrel 75 mg tablet 75 mg PO QAM #30 tabs 06/04/22 08/12/22 Rx losartan 50 mg tablet 50 mg PO QAM #30 tabs 06/04/22 08/12/22 Rx atorvastatin 40 mg tablet 40 mg PO DAILY 08/12/22 08/12/22 History furosemide 40 mg tablet 40 mg PO QAM 08/12/22 08/12/22 History Patient History Medical History CAD (coronary artery disease) 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 Summary of Findings 80% mid Lcx 100% mid RCA 40% distal Left main 40% ostial/proximal LAD (FFR negative, 0.89) 90% mid D2 (small vessel) PCI OM2 Chronic diastolic CHF (congestive heart failure) Chronic respiratory failure with hypoxia CKD (chronic kidney disease), stage III DMII (diabetes mellitus, type 2) Dyslipidemia, goal LDL below 70 Family history of ischemic heart disease History of pulmonary embolism Hypertension Morbid obesity Presence of drug coated stent in left circumflex coronary artery Volvulus Surgical History Hx of appendectomy same time as colon resection Hx of exploratory laparotomy s/p colectomy 2008 Family History Father Hx of CABG Brother Diabetes Uncle Cancer Social History Smoking Status: Never smoker Second Hand Exposure: Yes; Hx Alcohol Use: No Hx Substance Use: No Preferred Language: Malagasy Communication Ability: Effective Credentialing Manager Required: No Beliefs That Will Affect Care: None marital status: Single Current Living Situation: Significant Other Current Living Situation Comment: with girlfriend current occupational status: employed 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 compression stockings in place) Gastrointestinal (Abdomen): normal bowel sounds, soft, nontender, no hepatosplenomegaly Musculoskeletal: no cyanosis or clubbing, extremities motor strength 5/5 Skin: no rashes, warm and dry Neurologic: PERRL, EOMI, accommodation nl, no face palsy, no dysarthria Psychiatric: A+Ox3, euthymic affect Results & Data ([facility]) Vital Signs (Past 12 Hours) Vital Signs Temp Pulse Pulse Resp BP Pulse Ox O2 Del Method 08/13/22 11:13 36.5 C 72 20 164/97 H 98 Room Air 08/13/22 10:01 Nasal Cannula 08/13/22 07:57 36.6 C 76 20 158/89 H 97 Nasal Cannula 08/13/22 07:45 71 08/13/22 06:34 89 119/77 08/13/22 06:34 83 117/75 08/13/22 06:33 72 163/82 H 08/13/22 03:52 36.8 C 80 18 166/93 H 99 Room Air 08/13/22 00:17 36.9 C 79 19 145/84 H 100 Nasal Cannula O2 Flow Rate 08/13/22 11:13 08/13/22 10:01 2 08/13/22 07:57 2 08/13/22 07:45 08/13/22 06:34 08/13/22 06:34 08/13/22 06:33 08/13/22 03:52 08/13/22 00:17 2 Laboratory Results Laboratory Results WBC 6.64 K/ul (4.8-10.8) 08/13/22 07:46 WBC Cancelled 08/13/22 07:46 RBC 4.35 M/uL (4.63-6.08) L 08/13/22 07:46 RBC Cancelled 08/13/22 07:46 Hgb 12.6 g/dl (14.0-18.0) L 08/13/22 07:46 Hgb Cancelled 08/13/22 07:46 Hct 37.2 % (40.1-51.0) L 08/13/22 07:46 Hct Cancelled 08/13/22 07:46 MCV 85.5 fL (80.0-100.0) 08/13/22 07:46 MCV Cancelled 08/13/22 07:46 MCH 29.0 pg (25.0-34.0) 08/13/22 07:46 MCH Cancelled 08/13/22 07:46 MCHC 33.9 g/dL (32.0-36.0) 08/13/22 07:46 MCHC Cancelled 08/13/22 07:46 RDW Std Deviation 48.3 fL (36.4-46.3) H 08/13/22 07:46 RDW Std Deviation Cancelled 08/13/22 07:46 RDW Coeff of Golden 15.6 % (11.5-14.5) H 08/13/22 07:46 RDW Coeff of Golden Cancelled 08/13/22 07:46 Plt Count 141 K/uL (130-400) 08/13/22 07:46 Plt Count Cancelled 08/13/22 07:46 MPV 9.8 fL (9.4-12.4) 08/13/22 07:46 MPV Cancelled 08/13/22 07:46 Immature Gran % (Auto) 0.3 % 08/13/22 07:46 Immature Gran % (Auto) Cancelled 08/13/22 07:46 Neut % (Auto) 62.0 % 08/13/22 07:46 Neut % (Auto) Cancelled 08/13/22 07:46 Lymph % (Auto) 26.7 % 08/13/22 07:46 Lymph % (Auto) Cancelled 08/13/22 07:46 Glascock % (Auto) 7.5 % 08/13/22 07:46 Glascock % (Auto) Cancelled 08/13/22 07:46 Eos % (Auto) 3.0 % 08/13/22 07:46 Eos % (Auto) Cancelled 08/13/22 07:46 Baso % (Auto) 0.5 % 08/13/22 07:46 Baso % (Auto) Cancelled 08/13/22 07:46 Neut # (Auto) 4.12 K/uL (1.4-6.5) 08/13/22 07:46 Neut # (Auto) Cancelled 08/13/22 07:46 Lymph # (Auto) 1.77 K/uL (1.2-3.4) 08/13/22 07:46 Lymph # (Auto) Cancelled 08/13/22 07:46 Glascock # (Auto) 0.50 K/uL (0.24-0.82) 08/13/22 07:46 Glascock # (Auto) Cancelled 08/13/22 07:46 Eos # (Auto) 0.20 K/uL (0-0.50) 08/13/22 07:46 Eos # (Auto) Cancelled 08/13/22 07:46 Baso # (Auto) 0.03 K/uL (0-0.2) 08/13/22 07:46 Baso # (Auto) Cancelled 08/13/22 07:46 Immature Gran # (Auto) 0.02 K/uL (0.00-0.02) 08/13/22 07:46 Immature Gran # (Auto) Cancelled 08/13/22 07:46 Absolute Nucleated RBC Cancelled 08/13/22 07:46 Nucleated RBC % (auto) Cancelled 08/13/22 07:46 Neutrophils % (Manual) Cancelled 08/13/22 07:46 Band Neutrophils % Cancelled 08/13/22 07:46 Lymphocytes % (Manual) Cancelled 08/13/22 07:46 Prolymphocyte % Cancelled 08/13/22 07:46 Reactive Lymphs % (Man) Cancelled 08/13/22 07:46 Monocytes % (Manual) Cancelled 08/13/22 07:46 Eosinophils % (Manual) Cancelled 08/13/22 07:46 Basophils % (Manual) Cancelled 08/13/22 07:46 Metamyelocytes % (Man) Cancelled 08/13/22 07:46 Myelocytes % (Man) Cancelled 08/13/22 07:46 Promyelocytes % (Man) Cancelled 08/13/22 07:46 Blast Cells % (Manual) Cancelled 08/13/22 07:46 Plasma Cell % (Manual) Cancelled 08/13/22 07:46 Other Cells % Cancelled 08/13/22 07:46 Nucleated RBC % Cancelled 08/13/22 07:46 Neutrophils # (Manual) Cancelled 08/13/22 07:46 Band Neutrophils # Cancelled 08/13/22 07:46 Total Absolute Neuts Cancelled 08/13/22 07:46 Lymphocytes # (Manual) Cancelled 08/13/22 07:46 Prolymphocyte # Cancelled 08/13/22 07:46 Reactive Lymphs # Cancelled 08/13/22 07:46 Total Abs Lymphocytes Cancelled 08/13/22 07:46 Monocytes # (Manual) Cancelled 08/13/22 07:46 Eosinophils # (Manual) Cancelled 08/13/22 07:46 Basophils # (Manual) Cancelled 08/13/22 07:46 Metamyelocytes # (Man) Cancelled 08/13/22 07:46 Myelocytes # (Manual) Cancelled 08/13/22 07:46 Promyelocytes # (Man) Cancelled 08/13/22 07:46 Blast Cells # (Man) Cancelled 08/13/22 07:46 Plasma Cell # (Manual) Cancelled 08/13/22 07:46 Other Cells # Cancelled 08/13/22 07:46 Nucleated RBCs # (Man) Cancelled 08/13/22 07:46 Hypersegmented Neuts Cancelled 08/13/22 07:46 Hyposegmented Neuts Cancelled 08/13/22 07:46 Hypogranular Neuts Cancelled 08/13/22 07:46 Large Granular Lymphs Cancelled 08/13/22 07:46 # Lrg Granular Lymphs Cancelled 08/13/22 07:46 Hairy Cells Cancelled 08/13/22 07:46 Smudge Cells Cancelled 08/13/22 07:46 Toxic Granulation Cancelled 08/13/22 07:46 Toxic Vacuolation Cancelled 08/13/22 07:46 Dohle Bodies Cancelled 08/13/22 07:46 Angy Rods Cancelled 08/13/22 07:46 Platelet Estimate Cancelled 08/13/22 07:46 Platelet Estimate Normal (Normal) 08/13/22 07:46 Hypogranular Platelets Cancelled 08/13/22 07:46 Clumped Platelets Cancelled 08/13/22 07:46 Giant Platelets Cancelled 08/13/22 07:46 Platelet Satelliting Cancelled 08/13/22 07:46 RBC Morphology Cancelled 08/13/22 07:46 Polychromasia Cancelled 08/13/22 07:46 Hypochromasia Cancelled 08/13/22 07:46 Poikilocytosis Cancelled 08/13/22 07:46 Basophilic Stippling Cancelled 08/13/22 07:46 Anisocytosis Cancelled 08/13/22 07:46 Microcytosis Cancelled 08/13/22 07:46 Macrocytosis Cancelled 08/13/22 07:46 Spherocytes Cancelled 08/13/22 07:46 Pappenheimer Bodies Cancelled 08/13/22 07:46 Sickle Cells Cancelled 08/13/22 07:46 Target Cells Cancelled 08/13/22 07:46 Tear Drop Cells Cancelled 08/13/22 07:46 Ovalocytes Cancelled 08/13/22 07:46 Stomatocytes Cancelled 08/13/22 07:46 Pandya-Mulga Bodies Cancelled 08/13/22 07:46 Echinocytes Cancelled 08/13/22 07:46 Acanthocytes (Spur) Cancelled 08/13/22 07:46 Rouleaux Cancelled 08/13/22 07:46 RBC Agglutinates Cancelled 08/13/22 07:46 Schistocytes Cancelled 08/13/22 07:46 Sezary Cell Cancelled 08/13/22 07:46 PT 11.4 Seconds (9.0-12.0) 08/12/22 14:25 INR 1.1 (0.9-1.1) 08/12/22 14:25 APTT 104.3 Seconds (21.0-31.0) H* 08/13/22 07:46 PTT Ratio 3.8 08/13/22 07:46 Sodium 140 mmol/L (136-145) 08/13/22 07:46 Potassium 4.2 mmol/L (3.5-5.1) 08/13/22 07:46 Chloride 103 mmol/L (98-107) 08/13/22 07:46 Carbon Dioxide 32 mmol/L (21-32) 08/13/22 07:46 Anion Gap 5 (3-11) 08/13/22 07:46 BUN 24 mg/dl (6-23) H 08/13/22 07:46 Creatinine 1.38 mg/dl (0.6-1.4) D 08/13/22 07:46 Est Cr Clr Drug Dosing 80.3 ml/min 08/13/22 07:46 Est GFR ( Amer) 63.5 ml/min 08/13/22 07:46 Est GFR (Non-Af Amer) 54.8 ml/min 08/13/22 07:46 BUN/Creatinine Ratio 17.4 (10-20) 08/13/22 07:46 Glucose 96 mg/dl (70-99(Fasting)) 08/13/22 07:46 POC Glucose 156 mg/dl (70-99) H 08/12/22 21:42 Calcium 9.3 mg/dl (8.5-10.1) 08/13/22 07:46 Total Bilirubin 0.7 mg/dl (0.2-1.0) 08/12/22 14:25 AST 19 U/L (13-39) 08/12/22 14:25 ALT 22 U/L (7-52) 08/12/22 14:25 Alkaline Phosphatase 57 U/L (34-104) 08/12/22 14:25 Troponin I High Sens 14.1 pg/ml (0-20) 08/13/22 07:46 Total Protein 6.9 gm/dl (6.0-8.3) 08/12/22 14:25 Albumin 3.7 gm/dl (3.4-5.0) 08/12/22 14:25 Globulin 3.2 gm/dl (2.5-4.0) 08/12/22 14:25 Albumin/Globulin Ratio 1.2 (0.9-2) 08/12/22 14:25 Lipase 12 U/L (11-82) 08/12/22 14:25 SARS-CoV-2, RNA, NAAT NEGATIVE (NEGATIVE) 08/12/22 18:09 Blood Parasites ID Cancelled 08/13/22 07:46 Impressions Chest X-Ray 08/12/22 14:23 XR chest 1V portable CLINICAL HISTORY: Atypical chest pain. COMPARISON STUDY: Chest radiograph and chest CT May 28, 2022. FINDINGS: There is no pneumothorax. Small left and trace right pleural fusions have decreased since prior chest radiograph and chest CT. Left basilar opacity is noted. Cardiomegaly is unchanged. There is pulmonary vascular congestion without overt pulmonary edema. IMPRESSION: 1. Small left and trace right pleural effusions, decreased since prior exam. Left basilar opacity which favors atelectasis although pneumonia could appear similar. 2. Cardiomegaly. Pulmonary vascular congestion without overt pulmonary edema. ACT 112: Negative or not required by law. Electronically signed by: Darren Francis M.D. 08/12/2022 2:45 PM Chest CTA 08/12/22 14:49 CT ANGIOGRAM OF THE CHEST CLINICAL HISTORY: Dyspnea. COMPARISON STUDY: Chest x-ray dated 08/12/2022. Chest CT dated 05/28/2022. TECHNIQUE: Following the IV administration of 111 cc of Optiray 320, CT angiogram of the chest was performed from the upper abdomen to the thoracic inlet utilizing the pulmonary embolus protocol. Images are reviewed in the axial, sagittal, and coronal planes. 3-D MIPS images are created and assessed. IV contrast was administered without complication. A dose lowering technique was utilized adhering to the principles of ALARA. CT DOSE: 927.85 mGy.cm FINDINGS: Thyroid: Imaged portions of the thyroid gland are normal in size and attenuation. Thoracic aorta: The thoracic aorta is normal in caliber and demonstrates standard 3-vessel arch anatomy. No dissection is seen. Pulmonary vasculature: The pulmonary trunk is normal in caliber. There are no filling defects identified in main, lobar, or segmental pulmonary branches typical for acute pulmonary embolus. There is trace chronic pulmonary embolus within the left lower lobe pulmonary artery seen on image #165 and within the right lower lobe pulmonary artery on image #127. Heart: The heart is enlarged and without pericardial effusion. The coronary arteries are densely calcified. Lungs and pleural spaces: There are small to moderate pleural effusions, left larger than right with dependent consolidation. Secretions are noted in the trachea. A calcified granuloma seen at the left apex. Mediastinum: There is no mediastinal lymphadenopathy. Rochelle: Clear. Axillae: There is no axillary lymphadenopathy. Upper abdomen: There is a small hiatal hernia. Partially visualized upper abdominal viscera is otherwise within normal limits. Skeletal structures: The skeletal structures are osteopenic. Degenerative change is noted throughout the thoracic spine with evidence of DISH. Arthritic change is noted in the shoulders. No lytic or blastic bony lesions are seen. IMPRESSION: 1. There is no evidence of acute pulmonary embolus in the main, lobar, or segmental pulmonary arteries. 2. Trace chronic pulmonary embolus is seen within both lower lobe pulmonary arteries. 3. There are [id number] pleural effusions, left larger than right with associated bibasilar consolidation. This likely represents atelectasis and clinical correlation will be required. The effusions have somewhat decreased in size as compared to 05/28/2022. 4. Cardiomegaly with advanced coronary artery calcification. 5. Additional findings as above. ACT 112: Negative or not required by law. Electronically signed by: Christopher Dodson M.D. 08/12/2022 4:38 PM Venous Doppler Study 08/12/22 22:02 ULTRASOUND BILATERAL LOWER EXTREMITY VENOUS CLINICAL HISTORY: Chronic pulmonary embolus COMPARISON STUDY: Bilateral lower extremity venous ultrasound dated 09/15/2008. TECHNIQUE: Real-time, grayscale, and color Doppler sonography of the deep veins of the right and left lower extremity was performed from the inguinal crease to the calf. Compression and augmentation were utilized. FINDINGS: Right lower extremity: There is age indeterminate nonocclusive deep venous thrombosis seen throughout the right superficial femoral vein and within the popliteal vein. There is also age indeterminant deep venous thrombosis seen in the right calf and the posterior tibial and peroneal veins. 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 The common femoral vein is patent and normally compressible. The greater saphenous vein and the profunda femoris vein at the junction with the common femoral vein are clear. Left lower extremity: Age-indeterminate nonocclusive deep venous thrombosis is seen within the popliteal vein. There is also age indeterminant deep venous thrombosis within the calf and the posterior tibial and peroneal veins. The common femoral and superficial femoral veins are patent and normally compressible. The greater saphenous vein and the profunda femoris vein at the junction with the common femoral vein are clear. IMPRESSION: Age indeterminant deep venous thrombosis is seen in both legs as above. ACT 112: Negative or not required by law. Electronically signed by: Christopher Dodson M.D. 08/13/2022 9:40 AM Diagnostic Findings Telemetry reviewed: NSR in the 60-70 bpm range EKG: NSR without acute changes
--- NOTE | 2022-08-13 16:16 | Hospitalist Progress Note ---
Date of Service August 13, 2022 Assessment & Plan (1) Near syncope: Plan: Likely secondary to orthostatic hypotension Admit to telemetry Patient presenting by referral of cardiology office for evaluation of near syncopal events. Symptoms seem to be medication induced. Monitor orthostatic BPs Will hold furosemide, reduce losartan to 25 mg daily, continue home dose of carvedilol for now. Given somewhat recent cardiac intervention, will consult cardiology for further medication management recommendations 08/13 Orthostatic vitals positive Cardiology service consulted Losartan decreased from 50 mg to 25 mg p.o. daily Lasix dosing per cardiology service (2) Pulmonary embolus: Plan: Bilateral chronic appearing pulmonary emboli Bilateral DVTs Risk factors: PE after GI surgery in 2007, recent hospitalization May 2022 CT chest: 1. There is no evidence of acute pulmonary embolus in the main, lobar, or segmental pulmonary arteries. 2. Trace chronic pulmonary embolus is seen within both lower lobe pulmonary arteries. 3. There are [id number] pleural effusions, left larger than right with associated bibasilar consolidation. This likely represents atelectasis and clinical correlation will be required. The effusions have somewhat decreased in size as compared to 05/28/2022. 4. Cardiomegaly with advanced coronary artery calcification. 5. Additional findings as above. Doppler ultrasound: IMPRESSION: Age indeterminant deep venous thrombosis is seen in both legs as above. Hypercoagulable work-up ordered except for those that requires patient being off heparin Follow-up results Currently on heparin drip Hematology service consulted for recurrent PE, DVT (3) CAD (coronary artery disease): Plan: Patient reports some chest pressure with near syncopal events Initial HS trop negative, EKG without acute ST changes. No cardiac symptoms today Troponins trending down Cardiology service on board (4) Chronic diastolic CHF (congestive heart failure): Plan: Seems to be hypovolemic with episodes of near syncope and hypotension 08/13 Euvolemic Lasix on hold in light of orthostatic hypotension (5) CKD (chronic kidney disease), stage III: Plan: Recent baseline creatinine mid - high 1s 08/13 Creatinine one-point (6) DM type 2 (diabetes mellitus, type 2): Plan: Hgb A1c 7.0 Patient currently trialing diet control 08/13 informatics educator consult (7) Chronic respiratory failure with hypoxia: Plan: Was discharged on 2 L of O2 continuous after admission in May Also suspected underlying sleep apnea, following sleep medicine, sleep study pending Bilateral lower extremity numbness, tingling sensation DVT is likely contributing May have diabetic neuropathy Check vitamin B12, folic acid Outpatient lumbar spine MRI (8) DVT prophylaxis: Plan: SQ heparin Disposition PT and OT evaluation and blood pressure stable Anticipate discharge to home medically stable (9) Acute kidney injury: Admission and Anticipated Discharge Date Admission Date: August 12, 2022 Subjective Follow-up for orthostatic hypotension, chronic appearing PE and DVTs, etc. Seen resting in bed, comfortable, not in distress On 2 L of oxygen with nasal cannula States he feels improved compared to yesterday Started today for orthostatic vital sign measurements without dizziness, presyncope Denies chest pain, shortness of breath Reports bilateral lower extremity numbness, tingling sensation No other symptoms Review of Systems Review of Systems: all noted and negative except for above Physical Exam Physical Exam: General- oriented x 2, not in distress, speaks in sentences with no effort or accessory muscle use Eyes- anicteric Neck- no JVD Lungs- clear breath sounds bilaterally, no rales/wheezes Heart- normal rate, regular rhythm; no murmurs Abdomen- normal bowel sounds, nondistended, soft, nontender Extremities- no pretibial edema, no calf tenderness Neuro- alert, oriented x 3; no gross focal neurologic deficits Skin- warm & dry Results & Data Results & Data ([facility]) Vital Signs (Past 12 Hours) Vital Signs Temp Pulse Pulse Resp BP Pulse Ox O2 Del Method 08/13/22 15:17 36.5 C 77 19 148/85 H 97 Room Air 08/13/22 15:06 79 08/13/22 11:13 36.5 C 72 20 164/97 H 98 Room Air 08/13/22 10:01 Nasal Cannula 08/13/22 07:57 36.6 C 76 20 158/89 H 97 Nasal Cannula 08/13/22 07:45 71 08/13/22 06:34 89 119/77 08/13/22 06:34 83 117/75 08/13/22 06:33 72 163/82 H O2 Flow Rate 08/13/22 15:17 08/13/22 15:06 08/13/22 11:13 08/13/22 10:01 2 08/13/22 07:57 2 08/13/22 07:45 08/13/22 06:34 08/13/22 06:34 08/13/22 06:33 all noted and reviewed including below
[2022-08-13 17:55] LABS: Partial Thromboplastin Ratio 1.8
[2022-08-13 17:56] LABS: Partial Thromboplastin Time 50.5 Seconds (21.0-31.0)
--- NOTE | 2022-08-13 18:14 | Consultation ---
Date of Consultation August 13, 2022 Assessment & Plan (1) Pulmonary embolus: Patient now with bilateral DVT age-indeterminate and vague bilateral findings interpreted as potential "trace chronic" pulmonary emboli. Although not identified at the time, in retrospect these latter actually may have been presen t on the May study. Other than remote chest CTs we have no additional previous films for comparison. We do not have any immediately accessible previous duplex studies for comparison The 2007 episode had a fairly clear provocation in the preceding admission for volvulus with (at least at that time not indicated) no interval anticoagulation during the week he was at home despite obviously active ongoing issues within the abdomen and being very sedentary. As such, that would seem consistent with a provoked episode of pulmonary embolism postoperatively. He was treated appropriately with 3 months of warfarin and then on his own chose to stay on aspirin which has some but lesser efficacy in preventing additional VTE events. Bilateral leg edema had slow onset and responded to Lasix and certainly has significant component of that was fluid overload. With some question as to whether the trace chronic pulmonary emboli may have even been present in the CT scan in May, there is some potential question as to whether there may have been preceding venous thromboembolism events prior to that admission but that finding in and of itself is equivocal. We do not have the duplex studies until this admission and therefore cannot completely rule out that the current bilateral DVT found its origin in the immobility associated with his May admission though he was apparently receiving appropriate DVT prophylaxis at the time. He gives no personal or family history otherwise to suggest a "hypercoagulable" state. Issues: 1. Does he have "pathologically" recurrent VTE. The fact that the first episode was provoked makes this a less compelling story of recurrent hypercoagulability but certainly the fact that there has been now 2 episodes and that the last seems to have had minimal provocation raises concerns. This would certainly tend to push us towards long-term anticoagulation. 2. What "hypercoagulable work-up" is appropriate? He is already had protein C, protein S, factor V Leiden, and factor II mutation screens sent. Antithrombin III activity has not yet been submitted in the context of his full dose heparin therapy. He has not yet had lupus anticoagulant or anticardiolipin antibody screen submitted. I would caution that in the acute phase of thrombosis, protein C and protein S may be physiologically depleted so that if those functional assays returned showing depressed values we may need to reassess those at a future time. Given the uncertainty of his overall situation it would be helpful, however, to in time complete the entire anticoagulation screen including Antithrombin III activity and screens for antiphospholipid syndrome to help us more precisely define long-term recommendations. Independent of the results, however, would at the minimum recommend 3 to 6 months of anticoagulation. We can see him in follow-up in the hematology clinic in 2 months to make sure that additional testing is appropriately coordinated as a prelude to making final longer-term recommendations 3. What is the optimal choice for outpatient anticoagulation? His creatinine is slightly elevated but by Cockcroft-Gault calculation his creatinine clearance is over 100 mL/min based on his weight and age which would be more than adequate to consider a DOAC such as apixaban. Overall that would have less bleeding and slightly greater efficacy than warfarin but with the primary disadvantage of lesser reversibility with acute trauma or other bleeding episode. In regards that, we need to be particularly cognizant of what we think is ongoing risk for additional episodes of syncope and head trauma might be. If he is at high risk for additional episodes of syncope in trauma that basis we may need to lean more towards warfarin. Also the ongoing Plavix may create some mild additional synergistic bleeding risk. However, especially if we feel relatively confident there is not likely to be dramatic further episodes of syncope and trauma, apixaban certainly has the attraction of consistent dosing and in general lesser bleeding risk. 4. Does his BMI alter the confidence of apixaban dosing? More recent data suggest that apixaban would be acceptable in individuals up to 300 kg. Warfarin would certainly offer a more "customizable" dosing but it is not clear that that offers tremendous advantage from the particular perspective above he has weight 5. Is there any reason to be concerned about occult malignancy as a contributor to hypercoagulability. It is always important to bear in mind that an occult malignancy may sometimes present with venous thromboembolism. Because of his bowel surgery he had been told not to have a colonoscopy and thus his not had routine screening for colon cancer. Apparently has not had screening for PSA though I have asked that that be submitted tomorrow morning. As the situation stabilizes we should certainly think about doing at least a "routine" screens and given that there is some question as to what set these episodes off and especially if the initial hypercoagulable work-up is negative, they want to consider whether an abdominal/pelvic CT would be worthwhile to be more completely sure no occult issues of cancer there Present on Admission?: Yes (2) Near syncope: Will be critical to get a sense from cardiology whether we can attribute the syncope/near syncope with which he presented to excessive medication effect and feel fairly confident that he is not likely to see additional episodes of that as we finalize recommendations for anticoagulation as above Present on Admission?: Yes Plan Will defer issues regarding his cardiac status and medications, diabetes and renal management to his hospitalist and PCP teams. Note some early paresthesias which seem more likely diabetes related than any manifestations of his DVT especially since they seem to affect the hands more so than the feet and we will also defer those to his PCP. To the extent that there may have been some pulmonary emboli with retrospectively wonder how much of his oxygen requirement could have been related to shunting in the lungs though neither the May scan nor the current chest CT suggest that there is sufficient pulmonary embolism to cause a dramatic change in oxygen requirements. Would defer to cardiology and perhaps ultimately pulmonary evaluation as to whether there are alternative explanations for his oxygen dependency between May and now though hopefully with diuresis and optimization of cardiac function those requirements may lessen Based on cardiology assessment of ongoing syncope risk and additional shared decision making with the patient would finalize a plan with regards to either transition to warfarin or apixaban. Might be worthwhile to get some input from the Coumadin clinic and Dr. English as well Would plan to see him in follow-up in hematology in approximately 2 months and I am fill out the hypercoagulable work-up at that time along the lines outlined above. Anticipate a minimum of 3 to 6 months of anticoagulation but as we assess his tolerance of anticoagulation and get return of the hypercoagulable work-up can discuss the pros and cons of indefinite anticoagulation admittedly leaning somewhat in that direction given what have not been repetitive episodes even though the first was provoked History of Present Illness Reason for Consultation: Venous thromboembolism, request input for optimal management. Attending Physician: Noel Latif MD History of Present Illness 61-year-old gentleman status post pulmonary embolism in 2007 in the context of GI surgery and now has age- indeterminate bilateral lower extremity DVT and "trace chronic" bilateral pulmonary emboli. Prior to 2007 he had no history of venous thromboembolism. There is no family history of venous thromboembolism to his knowledge nor of recurrent mis carriages. Although multiple individuals in the family have had cancer these all are at an older age and there is no particularly unusual pattern of which he is aware. He is a non-smoker and has no personal history of cancer. He has had no colonoscopies since his 1999 8 GI surgery and to his knowledge has not had a PSA assessed. He has no weight loss out of proportion to the effects of diureti cs and gives no ongoing GI, cardiorespiratory, abdominal, , or other local symptomatology to suggest an occult malignancy He had developed a volvulus in 2007 initially treated conservatively. While he probably received prophylactic anticoagulation while inpatient, he was not discharged on prophylactic anticoagulation was home for approximately 1 week. During that time the apparent volvulus relapsed and apparently led to ischemic compromise of the bowel and a readmission with bowel resection. During that second mission he developed evidence of pulmonary emboli and was treated with warfarin for 3 months. Warfarin was discontinued at that time and on his own he determined to continue with prophylactic low-dose aspirin For some months he has had gradual onset bilateral leg edema and lesser breathing issues. He was admitted May with more acute exacerbation of that. A CTA at that time was read as showing no pulmonary emboli. Leg edema was apparently symmetric and without major discomfort and no duplex studies were performed. Cardiac evaluation did ultimately result in a drug-eluting stent placement in the left circumflex. He was discharged on chronic nasal oxygen because of exercise-induced desaturations with concerns over pulmonary function as well as BULL. On Lasix he seen improving bilateral lower extremity edema. He was readmitted with syncopal/near syncopal episode. In retrospect it was felt that that may have been in large part due to the Lasix and losartan, the former has been discontinued and the latter dose adjusted and he is no longer having postural symptoms. He has been taken off oxygen saturations are staying stable at rest. Cardiology evaluation has not indicated any acute events. However, duplex studies do show bilateral lower extremity DVT of indeterminate age, nonacute and CTA suggest bilateral "trace chronic" pulmonary emboli In retrospect although he sits for much of the day at work he was not engaged in any prolonged travel or any other particular immobility issues aside from the May admission and prior to that has had no major immobility issues or other obvious potential provoking factors for VTE. He is a never smoker and does not drink alcohol. 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 He did not serve in the armed services We note that cardiology does feel that he is far enough out from his drug- eluting stent to discontinue the aspirin but does suggest that he could need to continue on Plavix Allergies Allergy/AdvReac Type Severity Reaction Status Date / Time smallpox vaccine,live Allergy Severe edema Verified 08/12/22 17:12 Home Medications Medication Instructions Recorded Confirmed Type ascorbic acid (vitamin C) 500 mg 500 mg PO DAILY 05/28/22 08/12/22 History tablet (Vitamin C) aspirin 81 mg chewable tablet 81 mg PO DAILY 05/28/22 08/12/22 History multivitamin 1 tab PO DAILY 05/28/22 08/12/22 History Oxygen Home #1 ea 06/04/22 08/12/22 Rx carvedilol 12.5 mg tablet 12.5 mg PO BID #60 tabs 06/04/22 08/12/22 Rx clopidogrel 75 mg tablet 75 mg PO QAM #30 tabs 06/04/22 08/12/22 Rx losartan 50 mg tablet 50 mg PO QAM #30 tabs 06/04/22 08/12/22 Rx atorvastatin 40 mg tablet 40 mg PO DAILY 08/12/22 08/12/22 History furosemide 40 mg tablet 40 mg PO QAM 08/12/22 08/12/22 History Patient History Medical History CAD (coronary artery disease) RCA RN OBGYN May 2022 Summary of Findings 80% mid Lcx 100% mid RCA 40% distal Left main 40% ostial/proximal LAD (FFR negative, 0.89) 90% mid D2 (small vessel) PCI OM2 Chronic diastolic CHF (congestive heart failure) Chronic respiratory failure with hypoxia CKD (chronic kidney disease), stage III DMII (diabetes mellitus, type 2) Dyslipidemia, goal LDL below 70 Family history of ischemic heart disease History of pulmonary embolism Hypertension Morbid obesity Presence of drug coated stent in left circumflex coronary artery Volvulus Surgical History Hx of appendectomy same time as colon resection Hx of exploratory laparotomy s/p colectomy 2008 Family History Father Hx of CABG Brother Diabetes Uncle Cancer Social History Smoking Status: Never smoker Second Hand Exposure: Yes; Hx Alcohol Use: No Hx Substance Use: No Preferred Language: Tamazight Communication Ability: Effective Rn Delivery Required: No Beliefs That Will Affect Care: None marital status: Single Current Living Situation: Significant Other Current Living Situation Comment: with girlfriend current occupational status: employed current occupation: works at a [employer] shop Feels Safe at Home: Yes Safety Concerns: Feels Safe At This Time Assistive Devices: None Review of Systems Review of Systems: Other than issues described in the HPI the only additional note is of some sacral mild tingling paresthesias that do not interfere major ways with function. Physical Exam 2 Physical Exam: Alert, cooperative, in no acute distress at rest in bed without oxygen on currently. Blood pressure is 148/85, pulse 77 and regular, respirations 19 and nonlabored, temperature 36.5, pulse ox is 97% on room air HEENT exam is unremarkable He has no pathologic adenopathy in the cervical, supraclavicular, axillary, or inguinal regions Lungs show quiet breath sounds but without marked wheezes or prolonged expiratory phase and without focal rubs rales Cardiac rhythm seems regular without clearly pathological murmur His abdomen is protuberant and I cannot completely exclude subtle organomegaly or mass but there are certainly none that are grossly obvious nor is there local tenderness or guarding Extremities do show some persistent 1+ edema but this is symmetric and without cords or compression tenderness Neurologic exam seems completely nonfocal and unremarkable Results & Data ([facility]) Vital Signs (Past 12 Hours) Vital Signs Temp Pulse Pulse Resp BP Pulse Ox O2 Del Method 08/13/22 15:17 36.5 C 77 19 148/85 H 97 Room Air 08/13/22 15:06 79 08/13/22 11:13 36.5 C 72 20 164/97 H 98 Room Air 08/13/22 10:01 Nasal Cannula 08/13/22 07:57 36.6 C 76 20 158/89 H 97 Nasal Cannula 08/13/22 07:45 71 08/13/22 06:34 89 119/77 08/13/22 06:34 83 117/75 08/13/22 06:33 72 163/82 H O2 Flow Rate 08/13/22 15:17 08/13/22 15:06 08/13/22 11:13 08/13/22 10:01 2 08/13/22 07:57 2 08/13/22 07:45 08/13/22 06:34 08/13/22 06:34 08/13/22 06:33 Laboratory Results Abnormal lab results 08/12/22 08/13/22 08/13/22 Range/Units 21:42 07:46 07:46 RBC (4.63-6.08) M/uL Hgb (14.0-18.0) g/dl Hct (40.1-51.0) % RDW Std Deviation (36.4-46.3) fL RDW Coeff of Golden (11.5-14.5) % APTT 104.3 H* (21.0-31.0) Seconds BUN 24 H (6-23) mg/dl POC Glucose 156 H (70-99) mg/dl 08/13/22 08/13/22 Range/Units 07:46 15:57 RBC 4.35 L (4.63-6.08) M/uL Hgb 12.6 L (14.0-18.0) g/dl Hct 37.2 L (40.1-51.0) % RDW Std Deviation 48.3 H (36.4-46.3) fL RDW Coeff of Golden 15.6 H (11.5-14.5) % APTT 50.5 H* (21.0-31.0) Seconds BUN (6-23) mg/dl POC Glucose (70-99) mg/dl Diagnostic Findings Chest X-Ray 08/12/22 14:23 XR chest 1V portable CLINICAL HISTORY: Atypical chest pain. COMPARISON STUDY: Chest radiograph and chest CT May 28, 2022. FINDINGS: There is no pneumothorax. Small left and trace right pleural fusions have decreased since prior chest radiograph and chest CT. Left basilar opacity is noted. Cardiomegaly is unchanged. There is pulmonary vascular congestion wit hout overt pulmonary edema. IMPRESSION: 1. Small left and trace right pleural effusions, decreased since prior exam. Left basilar opacity which favors atelectasis although pneumonia could appear similar. 2. Cardiomegaly. Pulmonary vascular congestion without overt pulmonary edema. ACT 112: Negative or not required by law. Electronically signed by: Darren Francis M.D. 08/12/2022 2:45 PM Chest CTA 08/12/22 14:49 CT ANGIOGRAM OF THE CHEST CLINICAL HISTORY: Dyspnea. COMPARISON STUDY: Chest x-ray dated 08/12/2022. Chest CT dated 05/28/2022. TECHNIQUE: Following the IV administration of 111 cc of Optiray 320, CT angiogram of the chest was performed from the upper abdomen to the thoracic inlet utilizing the pulmonary embolus protocol. Images are reviewed in the axial, sagittal, and coronal planes. 3-D MIPS images are created and assessed. IV contrast was administered without complication. A dose lowering technique was utilized adhering to the principles of ALARA. CT DOSE: 927.85 mGy.cm FINDINGS: Thyroid: Imaged portions of the thyroid gland are normal in size and attenuation. Thoracic aorta: The thoracic aorta is normal in caliber and demonstrates standard 3-vessel arch anatomy. No dissection is seen. Pulmonary vasculature: The pulmonary trunk is normal in caliber. There are no filling defects identified in main, lobar, or segmental pulmonary branches typical for acute pulmonary embolus. There is trace chronic pulmonary embolus within the left lower lobe pulmonary artery seen on image #165 and within the right lower lobe pulmonary artery on image #127. Heart: The heart is enlarged and without pericardial effusion. The coronary arteries are densely calcified. Lungs and pleural spaces: There are small to moderate pleural effusions, left larger than right with dependent consolidation. Secretions are noted in the trachea. A calcified granuloma seen at the left apex. Mediastinum: There is no mediastinal lymphadenopathy. Rochelle: Clear. Axillae: There is no axillary lymphadenopathy. Upper abdomen: There is a small hiatal hernia. Partially visualized upper abdominal viscera is otherwise within normal limits. Skeletal structures: The skeletal structures are osteopenic. Degenerative change is noted throughout the thoracic spine with evidence of DISH. Arthritic change is noted in the shoulders. No lytic or blastic bony lesions are seen. IMPRESSION: 1. There is no evidence of acute pulmonary embolus in the main, lobar, or segmental pulmonary arteries. 2. Trace chronic pulmonary embolus is seen within both lower lobe pulmonary arteries. 3. There are [id number] pleural effusions, left larger than right with associated bibasilar consolidation. This likely represents atelectasis and clinical correlation will be required. The effusions have somewhat decreased in size as compared to 05/28/2022. 4. Cardiomegaly with advanced coronary artery calcification. 5. Additional findings as above. ACT 112: Negative or not required by law. Electronically signed by: Christopher Dodson M.D. 08/12/2022 4:38 PM Venous Doppler Study 08/12/22 22:02 ULTRASOUND BILATERAL LOWER EXTREMITY VENOUS CLINICAL HISTORY: Chronic pulmonary embolus COMPARISON STUDY: Bilateral lower extremity venous ultrasound dated 09/15/2008. TECHNIQUE: Real-time, grayscale, and color Doppler sonography of the deep veins of the right and left lower extremity was performed from the inguinal crease to the calf. Compression and augmentation were utilized. FINDINGS: Right lower extremity: There is age indeterminate nonocclusive deep venous thrombosis seen throughout the right superficial femoral vein and within the popliteal vein. There is also age indeterminant deep venous thrombosis seen in the right calf and the posterior tibial and peroneal veins. 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 The common femoral vein is patent and normally compressible. The greater saphenous vein and the profunda femoris vein at the junction with the common femoral vein are clear. Left lower extremity: Age-indeterminate nonocclusive deep venous thrombosis is seen within the popliteal vein. There is also age indeterminant deep venous thrombosis within the calf and the posterior tibial and peroneal veins. The common femoral and superficial femoral veins are patent and normally compressible. The greater saphenous vein and the profunda femoris vein at the junction with the common femoral vein are clear. IMPRESSION: Age indeterminant deep venous thrombosis is seen in both legs as above. ACT 112: Negative or not required by law. Electronically signed by: Christopher Dodson M.D. 08/13/2022 9:40 AM Note that I did ask radiology to retrospectively review the May CTA and with retrospective comparison there may be very faint indicators of similar findings in the lungs at that time to the current study PG Care Time/CCT Total # of Minutes Spent Total Time Spent with Patient: Total time spent is greater than 50% in coordination of care (as documented) at patient's floor/unit and/or counseling patient: [place] [address] Inpt Consult Level 5 Patient Type New History Expanded Problem Focused Exam Expanded Problem Focused Medical Decision Making High Complexity Diagnoses Pulmonary embolus I26.99 Near syncope R55
--- NOTE | 2022-08-14 06:10 | Electrocardiogram Report ---
Test Reason : Blood Pressure : / mmHG Vent. Rate : 073 BPM Atrial Rate : 073 BPM P-R Int : 174 ms QRS Dur : 116 ms QT Int : 408 ms P-R-T Axes : 034 031 053 degrees QTc Int : 449 ms Normal sinus rhythm Inferior infarct (cited on or before 12-AUG-2022) Abnormal ECG When compared with ECG of 12-AUG-2022 14:21, No significant change was found Confirmed by Tito Singleton ([id number]) on 08/14/2022 6:09:44 AM Referred By: REFERRED SELF Confirmed By:Tito Singleton
[2022-08-14 06:19] LABS: Hematocrit (blood only) 35.2 % (40.1-51.0); Hemoglobin 12.2 g/dl (14.0-18.0); Mean Corpuscular Hemoglobin 29.3 pg (25.0-34.0); Mean Corpuscular Hgb Conc 34.7 g/dL (32.0-36.0); Mean Corpuscular Volume 84.4 fL (80.0-100.0); Mean Platelet Volume 9.8 fL (9.4-12.4); Platelet Count 144 K/uL (130-400); RDW Coefficient of Variation 15.8 % (11.5-14.5); RDW Standard Deviation 48.7 fL (36.4-46.3); Red Blood Count 4.17 M/uL (4.63-6.08); White Blood Count 6.84 K/ul (4.8-10.8)
[2022-08-14 06:32] LABS: Basophils # (auto) 0.03 K/uL (0-0.2); Basophils % (auto) 0.4 %; Eosinophils # (auto) 0.21 K/uL (0-0.50); Eosinophils % (auto) 3.1 %; Immature Granulocytes # (auto) 0.02 K/uL (0.00-0.02); Immature Granulocytes % (auto) 0.3 %; Lymphocytes # (auto) 1.69 K/uL (1.2-3.4); Lymphocytes % (auto) 24.7 %; Monocytes # (auto) 0.54 K/uL (0.24-0.82); Monocytes % (auto) 7.9 %; Neutrophils # (auto) 4.35 K/uL (1.4-6.5); Neutrophils % (auto) 63.6 %; Ovalocytes 1+
[2022-08-14 06:37] LABS: Partial Thromboplastin Ratio 1.8
[2022-08-14 06:40] LABS: BUN Creatinine Ratio 17.3 (10-20); Calcium 8.9 mg/dl (8.5-10.1); Creatinine Clr Calc Pharmacy 74.1 ml/min; Est GFR (African American) 57.4 ml/min; Est GFR (Non-African American) 49.5 ml/min; Potassium 4.3 mmol/L (3.5-5.1)
[2022-08-14 06:41] LABS: Partial Thromboplastin Time 50.2 Seconds (21.0-31.0)
--- NOTE | 2022-08-14 06:51 | Electrocardiogram Report ---
Test Reason : Blood Pressure : / mmHG Vent. Rate : 072 BPM Atrial Rate : 072 BPM P-R Int : 170 ms QRS Dur : 090 ms QT Int : 408 ms P-R-T Axes : 000 041 055 degrees QTc Int : 446 ms Normal sinus rhythm Inferior infarct (cited on or before 12-AUG-2022) Abnormal ECG When compared with ECG of 12-AUG-2022 22:21, No significant change was found Confirmed by Tito Singleton ([id number]) on 08/14/2022 6:50:44 AM Referred By: REFERRED SELF Confirmed By:Tito Singleton
[2022-08-14 06:59] LABS: Vitamin B12 381 pg/ml (180-914)
[2022-08-14] MEDS: HEPARIN SODIUM/DEXTROSE 25,000 UNITS/500 ML BAG IV SCH (07:21)
[2022-08-14] MEDS: ASPIRIN 81 MG ECTAB PO SCH (08:48)
[2022-08-14] MEDS: ATORVASTATIN 40 MG TAB PO SCH (08:48)
[2022-08-14] MEDS: CLOPIDOGREL BISULFATE 75 MG TAB PO SCH (08:49)
[2022-08-14] MEDS: LOSARTAN POTASSIUM 25 MG TAB PO SCH (08:49)
[2022-08-14] MEDS: carvediloL 12.5 MG TAB PO SCH ×2 (08:49→20:44)
--- NOTE | 2022-08-14 11:23 | Cardiology Progress Note ---
Date of Service August 14, 2022 Assessment & Plan (1) Near syncope: (2) Acute kidney injury: (3) Dehydration: (4) CAD (coronary artery disease): (5) Labile hypertension: (6) Pulmonary embolus: Plan Patient admitted yesterday after several syncopal/near syncope spells with repro ducible hypotension and orthostatic vital signs in the outpatient cardio office. PEDRO noted on arrival. Improved with IV fluids. Continues to have intermittent symptomatic orthostatic hypotension upon sitting to standing. Resting BP remains elevated. Continue losartan 25 mg daily Creatinine trending higher this morning. Hydration encouraged. Compression stockings advised. Continue to hold diuretics - furosemide and spironolactone Found to have PE and b/l DVT on chest CTA and venous duplex. Remote history of PE in 2009. Chest CTA was negative in May 2022. Started on IV heparin. will likely need anticoagulation therapy for at least 3 months, possibly longer. No RV strain on echo. Patient is s/p CHUCKY t the left circumflex in May 2022. Continue plavix. May stop ASA when initiating oral anticoagulation as he is 2 months post stent No anginal complaints. HS troponin is unremarkable. No acute EKG changes. Hematology also consulted by hospitalist. Case discussed with Dr. Sims. Will follow. Admission and Anticipated Discharge Date Admission Date: August 13, 2022 Supervising Physician Co-Signing Physician Notes Patient was seen and personally examined. Assessment and plan as well outlined above patient presented with hypotension dizziness and orthostasis. Still mildly orthostatic this morning, renal function not quite back to baseline. Would recommend proceeding as above anticoagulation with Eliquis for possible DVT PE continue reduced dose losartan. Hold aspirin but continue clopidogrel patient is anxious to resume diuretics would not do so at this time Subjective Patient resting in bed. Earlier today, he sat up quickly to take his meds and became acutely lightheaded. Symptoms improved with laying supine. This happened last evening as well with + orthostatic vital signs. supine BP in the 160's and dropped to the 90's upon standing. He denies palpitations or tachypalpitations. no chest pain or SOB. notes mild ankle edema but unchanged. Review of Systems Review of Systems: All systems reviewed & are unremarkable except as noted in HPI & below Physical Exam Constitutional: WD/WN, vitals as above + obese; no acute distress Respiratory: normal respiratory effort, lungs clear to auscultation Cardiovascular: Rate/Rhythm: regular rate and regular rhythm Heart Sounds: no murmur Vessels: no JVD Extremities: + edema (trace edema b/l. compression stockings in place) Gastrointestinal (Abdomen): normal bowel sounds, soft, nontender, no hepatosplenomegaly Musculoskeletal: no cyanosis or clubbing, extremities motor strength 5/5 Skin: no rashes, warm and dry Neurologic: PERRL, EOMI, accommodation nl, no face palsy, no dysarthria Psychiatric: A+Ox3, euthymic affect Results & Data ([facility]) Vital Signs (Past 12 Hours) Vital Signs Temp Pulse Pulse Resp BP Pulse Ox O2 Del Method 08/14/22 10:58 37.2 C 81 20 115/74 96 Room Air 08/14/22 08:00 81 08/14/22 07:37 36.5 C 76 19 161/90 H 95 Room Air 08/14/22 02:58 37.2 C 79 16 155/82 H 91 Room Air Laboratory Results Coagulation 08/13/22 08/14/22 Range/Units 15:57 05:49 APTT 50.5 H* 50.2 H* (21.0-31.0) Seconds CBC 08/14/22 Range/Units 05:49 WBC 6.84 (4.8-10.8) K/ul RBC 4.17 L (4.63-6.08) M/uL Hgb 12.2 L (14.0-18.0) g/dl Hct 35.2 L (40.1-51.0) % Plt Count 144 (130-400) K/uL Neut # (Auto) 4.35 (1.4-6.5) K/uL Lymph # (Auto) 1.69 (1.2-3.4) K/uL [place] # (Auto) 0.54 (0.24-0.82) K/uL Eos # (Auto) 0.21 (0-0.50) K/uL Baso # (Auto) 0.03 (0-0.2) K/uL Comprehensive Metabolic Panel 08/14/22 Range/Units 05:49 Sodium 137 (136-145) mmol/L Potassium 4.3 (3.5-5.1) mmol/L Chloride 102 (98-107) mmol/L Carbon Dioxide 30 (21-32) mmol/L BUN 26 H (6-23) mg/dl Creatinine 1.50 H (0.6-1.4) mg/dl Glucose 100 H (70-99(Fasting)) mg/dl Calcium 8.9 (8.5-10.1) mg/dl Intake and Output 08/13/22 08/14/22 08/14/22 22:59 06:59 14:59 Intake Total 543.5 / 1740.1 250 / 1740.1 368 / 368 Output Total 1150 / 2200 800 / 2200 Balance -606.5 / -459.9 -550 / -459.9 368 / 368 Intake: IV 268.5 / 575.1 368 / 368 Heparin Sodium/Dextrose 25,000 268.5 / 575.1 368 / 368 units In 500 ml @ 1,500 UNITS/ HR 30 mls/hr IV .[id number] [facility] Rx #:[id number] Oral 275 / 1165 250 / 1165 Output: Urine 1150 / 2200 800 / 2200 Other: Weight 136.9 kg 136.9 kg Weight Measurement Method Built in [facility] Diagnostic Findings Telemetry reviewed: NSR without arrhythmias Echo with preserved LVEF, no significant valvular disease, normal right heart function. No change from May. Medications Administered Current Inpatient Medications Acetaminophen (Acetaminophen 325 Mg Tab) 650 mg PO Q4H PRN PRN Reason: Pain or Fever Stop: 09/11/22 22:00 Aspirin (Aspirin 81 Mg Ectab) 81 mg PO DAILY [facility] Stop: 09/12/22 08:59 Last Admin: 08/14/22 08:48 Dose: 81 mg Atorvastatin Calcium (Atorvastatin 40 Mg Tab) 40 mg PO DAILY [facility] Stop: 09/12/22 08:59 Last Admin: 08/14/22 08:48 Dose: 40 mg Carvedilol (Carvedilol 12.5 Mg Tab) 12.5 mg PO BID [facility] Stop: 09/11/22 22:00 Last Admin: 08/14/22 08:49 Dose: 12.5 mg Clopidogrel Bisulfate (Clopidogrel Bisulfate 75 Mg Tab) 75 mg PO QAM [facility] Stop: 09/12/22 08:59 Last Admin: 08/14/22 08:49 Dose: 75 mg Heparin Sodium/Dextrose (Heparin Sodium/Dextrose) 25,000 units in 500 mls @ 30 mls/hr IV .[id number] [facility]; Protocol Stop: 09/11/22 22:29 Last Admin: 08/14/22 07:21 Dose: 1,500 units/hr, 30 mls/hr Losartan Potassium (Losartan Potassium 25 Mg Tab) [facility] Stop: 09/12/22 08:59 Last Admin: 08/14/22 08:49 Dose: 25 mg
[2022-08-14] MEDS ORDERED: LACTATED RINGER'S 250 ML IV ONE (15:17)
--- NOTE | 2022-08-14 15:23 | Hospitalist Progress Note ---
Date of Service August 14, 2022 Assessment & Plan (1) Near syncope: Plan: - Likely secondary to orthostatic hypotension; seems less likely to be neurologic or intrinsically cardiac - Admitted to telemetry - could be multifactorial with medications (BP, diuretics) contributing - had PEDRO on admission that improved with IVF - positive orthostatic BP assessment by nursing - Will hold furosemide, reduce losartan to 25 mg daily - continue home dose of carvedilol for now. - Cardiology following (2) Pulmonary embolus: Plan: - Chronic bilateral PEs and DVTs - has had history of DVT and PEs - heme consulted - hypercoag work up initiated - started on heparin drip initially - transitioned to Apixaban 5mg BID - continue to monitor (3) CAD (coronary artery disease): Plan: - Patient reports some chest pressure with near syncopal events - Initial HS trop negative, EKG without acute ST changes. - No cardiac symptoms since admission - Cardiology service on board - continue on plavix and started on eliquis - continue BB and statin (4) Chronic diastolic CHF (congestive heart failure): Plan: - Seems to be hypovolemic with episodes of near syncope and hypotension - Cardiology following - holding diuretics - gentle IV hydration as needed for orthostatic hypotension - continue to monitor volume status (5) CKD (chronic kidney disease), stage III: Plan: - Recent baseline creatinine mid 1s - elevated Cr on admission that responded to IVF - will continue to monitor fluid status - diuretics on hold (6) DM type 2 (diabetes mellitus, type 2): Plan: - Hgb A1c 7.0 - Patient currently on diet control - FSG AC+HS - SSI while inpatient - diabetic diet Plan DVT ppx: apixaban Code Status: Full Code Dispo: telemetry Saad Lane MD [facility] Medicine Admission and Anticipated Discharge Date Admission Date: August 13, 2022 Subjective Patient with CAD s/p PCI (04/2022), HTN, obesity who presented with symptoms of pre-syncope and found to have orthostatic hypotension. Cardiology consulted, BP medication adjustments. Also with history of PE/DVTs started on heparin drip, transitioned to apixaban. Patient reports still having symptoms of dizziness when lying to sitting or sitting to standing. Denies chest pain, palpitations, n/v/d, abdominal pain, dysuria, cough, shortness of breath. Review of Systems Review of Systems: All systems reviewed & are unremarkable except as noted in Subjective Physical Exam Physical Exam: General- oriented x 3, not in distress, speaks in sentences with no effort or accessory muscle use Eyes- anicteric Neck- no JVD Lungs- clear breath sounds bilaterally, no rales/wheezes Heart- normal rate, regular rhythm; no murmurs Abdomen- normal bowel sounds, nondistended, soft, nontender Extremities- no pretibial edema, no calf tenderness Neuro- alert, oriented x 3; no gross focal neurologic deficits Skin- warm & dry Results & Data Results & Data ([facility]) Vital Signs (Past 12 Hours) Vital Signs Temp Pulse Pulse Resp BP Pulse Ox O2 Del Method 08/14/22 10:58 37.2 C 81 20 115/74 96 Room Air 08/14/22 08:00 81 08/14/22 07:37 36.5 C 76 19 161/90 H 95 Room Air Diagnostic Findings Laboratory Results WBC 6.84 K/ul (4.8-10.8) 08/14/22 05:49 RBC 4.17 M/uL (4.63-6.08) L 08/14/22 05:49 Hgb 12.2 g/dl (14.0-18.0) L 08/14/22 05:49 Hct 35.2 % (40.1-51.0) L 08/14/22 05:49 MCV 84.4 fL (80.0-100.0) 08/14/22 05:49 MCH 29.3 pg (25.0-34.0) 08/14/22 05:49 MCHC 34.7 g/dL (32.0-36.0) 08/14/22 05:49 RDW Std Deviation 48.7 fL (36.4-46.3) H 08/14/22 05:49 RDW Coeff of Golden 15.8 % (11.5-14.5) H 08/14/22 05:49 Plt Count 144 K/uL (130-400) 08/14/22 05:49 MPV 9.8 fL (9.4-12.4) 08/14/22 05:49 Immature Gran % (Auto) 0.3 % 08/14/22 05:49 Neut % (Auto) 63.6 % 08/14/22 05:49 Lymph % (Auto) 24.7 % 08/14/22 05:49 [place] % (Auto) 7.9 % 08/14/22 05:49 Eos % (Auto) 3.1 % 08/14/22 05:49 Baso % (Auto) 0.4 % 08/14/22 05:49 Neut # (Auto) 4.35 K/uL (1.4-6.5) 08/14/22 05:49 Lymph # (Auto) 1.69 K/uL (1.2-3.4) 08/14/22 05:49 [place] # (Auto) 0.54 K/uL (0.24-0.82) 08/14/22 05:49 Eos # (Auto) 0.21 K/uL (0-0.50) 08/14/22 05:49 Baso # (Auto) 0.03 K/uL (0-0.2) 08/14/22 05:49 Immature Gran # (Auto) 0.02 K/uL (0.00-0.02) 08/14/22 05:49 Absolute Nucleated RBC Cancelled 08/13/22 07:46 Nucleated RBC % (auto) Cancelled 08/13/22 07:46 Neutrophils % (Manual) Cancelled 08/13/22 07:46 Band Neutrophils % Cancelled 08/13/22 07:46 Lymphocytes % (Manual) Cancelled 08/13/22 07:46 Prolymphocyte % Cancelled 08/13/22 07:46 Reactive Lymphs % (Man) Cancelled 08/13/22 07:46 Monocytes % (Manual) Cancelled 08/13/22 07:46 Eosinophils % (Manual) Cancelled 08/13/22 07:46 Basophils % (Manual) Cancelled 08/13/22 07:46 Metamyelocytes % (Man) Cancelled 08/13/22 07:46 Myelocytes % (Man) Cancelled 08/13/22 07:46 Promyelocytes % (Man) Cancelled 08/13/22 07:46 Blast Cells % (Manual) Cancelled 08/13/22 07:46 Plasma Cell % (Manual) Cancelled 08/13/22 07:46 Other Cells % Cancelled 08/13/22 07:46 Nucleated RBC % Cancelled 08/13/22 07:46 Neutrophils # (Manual) Cancelled 08/13/22 07:46 Band Neutrophils # Cancelled 08/13/22 07:46 Total Absolute Neuts Cancelled 08/13/22 07:46 Lymphocytes # (Manual) Cancelled 08/13/22 07:46 Prolymphocyte # Cancelled 08/13/22 07:46 Reactive Lymphs # Cancelled 08/13/22 07:46 Total Abs Lymphocytes Cancelled 08/13/22 07:46 Monocytes # (Manual) Cancelled 08/13/22 07:46 Eosinophils # (Manual) Cancelled 08/13/22 07:46 Basophils # (Manual) Cancelled 08/13/22 07:46 Metamyelocytes # (Man) Cancelled 08/13/22 07:46 Myelocytes # (Manual) Cancelled 08/13/22 07:46 Promyelocytes # (Man) Cancelled 08/13/22 07:46 Blast Cells # (Man) Cancelled 08/13/22 07:46 Plasma Cell # (Manual) Cancelled 08/13/22 07:46 Other Cells # Cancelled 08/13/22 07:46 Nucleated RBCs # (Man) Cancelled 08/13/22 07:46 Hypersegmented Neuts Cancelled 08/13/22 07:46 Hyposegmented Neuts Cancelled 08/13/22 07:46 Hypogranular Neuts Cancelled 08/13/22 07:46 Large Granular Lymphs Cancelled 08/13/22 07:46 # Lrg Granular Lymphs Cancelled 08/13/22 07:46 Hairy Cells Cancelled 08/13/22 07:46 Smudge Cells Cancelled 08/13/22 07:46 Toxic Granulation Cancelled 08/13/22 07:46 Toxic Vacuolation Cancelled 08/13/22 07:46 Dohle Bodies Cancelled 08/13/22 07:46 Angy Rods Cancelled 08/13/22 07:46 Platelet Estimate Cancelled 08/13/22 07:46 Platelet Estimate Normal (Normal) 08/13/22 07:46 Hypogranular Platelets Cancelled 08/13/22 07:46 Clumped Platelets Cancelled 08/13/22 07:46 Giant Platelets Cancelled 08/13/22 07:46 Platelet Satelliting Cancelled 08/13/22 07:46 RBC Morphology Cancelled 08/13/22 07:46 Polychromasia Cancelled 08/13/22 07:46 Hypochromasia Cancelled 08/13/22 07:46 Poikilocytosis Cancelled 08/13/22 07:46 Basophilic Stippling Cancelled 08/13/22 07:46 Anisocytosis Cancelled 08/13/22 07:46 Microcytosis Cancelled 08/13/22 07:46 Macrocytosis Cancelled 08/13/22 07:46 Spherocytes Cancelled 08/13/22 07:46 Pappenheimer Bodies Cancelled 08/13/22 07:46 Sickle Cells Cancelled 08/13/22 07:46 Target Cells Cancelled 08/13/22 07:46 Tear Drop Cells Cancelled 08/13/22 07:46 Ovalocytes 1+ 08/14/22 05:49 Stomatocytes Cancelled 08/13/22 07:46 Pandya-Basalt Bodies Cancelled 08/13/22 07:46 Echinocytes Cancelled 08/13/22 07:46 Acanthocytes (Spur) Cancelled 08/13/22 07:46 Rouleaux Cancelled 08/13/22 07:46 RBC Agglutinates Cancelled 08/13/22 07:46 Schistocytes Cancelled 08/13/22 07:46 Sezary Cell Cancelled 08/13/22 07:46 PT 11.4 Seconds (9.0-12.0) 08/12/22 14:25 INR 1.1 (0.9-1.1) 08/12/22 14:25 APTT 50.2 Seconds (21.0-31.0) H* 08/14/22 05:49 PTT Ratio 1.8 08/14/22 05:49 Sodium 137 mmol/L (136-145) 08/14/22 05:49 Potassium 4.3 mmol/L (3.5-5.1) 08/14/22 05:49 Chloride 102 mmol/L (98-107) 08/14/22 05:49 Carbon Dioxide 30 mmol/L (21-32) 08/14/22 05:49 Anion Gap 5 (3-11) 08/14/22 05:49 BUN 26 mg/dl (6-23) H 08/14/22 05:49 Creatinine 1.50 mg/dl (0.6-1.4) H 08/14/22 05:49 Est Cr Clr Drug Dosing 74.1 ml/min 08/14/22 05:49 Est GFR ( Amer) 57.4 ml/min 08/14/22 05:49 Est GFR (Non-Af Amer) 49.5 ml/min 08/14/22 05:49 BUN/Creatinine Ratio 17.3 (10-20) 08/14/22 05:49 Glucose 100 mg/dl (70-99(Fasting)) H 08/14/22 05:49 POC Glucose 126 mg/dl (70-99) H 08/13/22 20:16 Calcium 8.9 mg/dl (8.5-10.1) 08/14/22 05:49 Total Bilirubin 0.7 mg/dl (0.2-1.0) 08/12/22 14:25 AST 19 U/L (13-39) 08/12/22 14:25 ALT 22 U/L (7-52) 08/12/22 14:25 Alkaline Phosphatase 57 U/L (34-104) 08/12/22 14:25 Troponin I High Sens 14.1 pg/ml (0-20) 08/13/22 07:46 Total Protein 6.9 gm/dl (6.0-8.3) 08/12/22 14:25 Albumin 3.7 gm/dl (3.4-5.0) 08/12/22 14:25 Globulin 3.2 gm/dl (2.5-4.0) 08/12/22 14:25 Albumin/Globulin Ratio 1.2 (0.9-2) 08/12/22 14:25 Lipase 12 U/L (11-82) 08/12/22 14:25 Prostate Specific Ag 0.327 ng/ml (0-4) 08/14/22 05:49 Vitamin B12 381 pg/ml (180-914) 08/14/22 05:49 Folate > 22.30 ng/ml (>5.38) 08/14/22 05:49 SARS-CoV-2, RNA, NAAT NEGATIVE (NEGATIVE) 08/12/22 18:09 Blood Parasites ID Cancelled 08/13/22 07:46 Impressions Chest X-Ray 08/12/22 14:23 XR chest 1V portable CLINICAL HISTORY: Atypical chest pain. COMPARISON STUDY: Chest radiograph and chest CT May 28, 2022. FINDINGS: There is no pneumothorax. Small left and trace right pleural fusions have decreased since prior chest radiograph and chest CT. Left basilar opacity is noted. Cardiomegaly is unchanged. There is pulmonary vascular congestion without overt pulmonary edema. IMPRESSION: 1. Small left and trace right pleural effusions, decreased since prior exam. Left basilar opacity which favors atelectasis although pneumonia could appear similar. 2. Cardiomegaly. Pulmonary vascular congestion without overt pulmonary edema. ACT 112: Negative or not required by law. Electronically signed by: Darren Francis M.D. 08/12/2022 2:45 PM Chest CTA 08/12/22 14:49 CT ANGIOGRAM OF THE CHEST CLINICAL HISTORY: Dyspnea. COMPARISON STUDY: Chest x-ray dated 08/12/2022. Chest CT dated 05/28/2022. TECHNIQUE: Following the IV administration of 111 cc of Optiray 320, CT angiogram of the chest was performed from the upper abdomen to the thoracic inlet utilizing the pulmonary embolus protocol. Images are reviewed in the axial, sagittal, and coronal planes. 3-D MIPS images are created and assessed. IV contrast was administered without complication. A dose lowering technique was utilized adhering to the principles of ALARA. CT DOSE: 927.85 mGy.cm FINDINGS: Thyroid: Imaged portions of the thyroid gland are normal in size and attenuation. Thoracic aorta: The thoracic aorta is normal in caliber and demonstrates standard 3-vessel arch anatomy. No dissection is seen. Pulmonary vasculature: The pulmonary trunk is normal in caliber. There are no filling defects identified in main, lobar, or segmental pulmonary branches typical for acute pulmonary embolus. There is trace chronic pulmonary embolus within the left lower lobe pulmonary artery seen on image #165 and within the right lower lobe pulmonary artery on image #127. Heart: The heart is enlarged and without pericardial effusion. The coronary arteries are densely calcified. Lungs and pleural spaces: There are small to moderate pleural effusions, left larger than right with dependent consolidation. Secretions are noted in the trachea. A calcified granuloma seen at the left apex. Mediastinum: There is no mediastinal lymphadenopathy. Rochelle: Clear. Axillae: There is no axillary lymphadenopathy. Upper abdomen: There is a small hiatal hernia. Partially visualized upper abdominal viscera is otherwise within normal limits. Skeletal structures: The skeletal structures are osteopenic. Degenerative change is noted throughout the thoracic spine with evidence of DISH. Arthritic change is noted in the shoulders. No lytic or blastic bony lesions are seen. IMPRESSION: 1. There is no evidence of acute pulmonary embolus in the main, lobar, or segmental pulmonary arteries. 2. Trace chronic pulmonary embolus is seen within both lower lobe pulmonary arteries. 3. There are [id number] pleural effusions, left larger than right with associated bibasilar consolidation. This likely represents atelectasis and clinical correlation will be required. The effusions have somewhat decreased in size as compared to 05/28/2022. 4. Cardiomegaly with advanced coronary artery calcification. 5. Additional findings as above. ACT 112: Negative or not required by law. Electronically signed by: Christopher Dodson M.D. 08/12/2022 4:38 PM Venous Doppler Study 08/12/22 22:02 ULTRASOUND BILATERAL LOWER EXTREMITY VENOUS CLINICAL HISTORY: Chronic pulmonary embolus COMPARISON STUDY: Bilateral lower extremity venous ultrasound dated 09/15/2008. TECHNIQUE: Real-time, grayscale, and color Doppler sonography of the deep veins of the right and left lower extremity was performed from the inguinal crease to the calf. Compression and augmentation were utilized. FINDINGS: Right lower extremity: There is age indeterminate nonocclusive deep venous th rombosis seen throughout the right superficial femoral vein and within the popliteal vein. There is also age indeterminant deep venous thrombosis seen in the right calf and the posterior tibial and peroneal veins. 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 The common femoral vein is patent and normally compressible. The greater saphenous vein and the profunda femoris vein at the junction with the common femoral vein are clear. Left lower extremity: Age-indeterminate nonocclusive deep venous thrombosis is seen within the popliteal vein. There is also age indeterminant deep venous thrombosis within the calf and the posterior tibial and peroneal veins. The common femoral and superficial femoral veins are patent and normally compressible. The greater saphenous vein and the profunda femoris vein at the junction with the common femoral vein are clear. IMPRESSION: Age indeterminant deep venous thrombosis is seen in both legs as above. ACT 112: Negative or not required by law. Electronically signed by: Christopher Dodson M.D. 08/13/2022 9:40 AM Medications Administered Current Inpatient Medications Acetaminophen (Acetaminophen 325 Mg Tab) 650 mg PO Q4H PRN PRN Reason: Pain or Fever Stop: 09/11/22 22:00 Apixaban (Apixaban 5 Mg Tablet) 5 mg PO BID [facility] Stop: 09/13/22 20:59 Aspirin (Aspirin 81 Mg Ectab) 81 mg PO DAILY [facility] Stop: 09/12/22 08:59 Last Admin: 08/14/22 08:48 Dose: 81 mg Atorvastatin Calcium (Atorvastatin 40 Mg Tab) 40 mg PO DAILY [facility] Stop: 09/12/22 08:59 Last Admin: 08/14/22 08:48 Dose: 40 mg Carvedilol (Carvedilol 12.5 Mg Tab) 12.5 mg PO BID [facility] Stop: 09/11/22 22:00 Last Admin: 08/14/22 08:49 Dose: 12.5 mg Clopidogrel Bisulfate (Clopidogrel Bisulfate 75 Mg Tab) [facility] [place]: 09/12/22 08:59 Last Admin: 08/14/22 08:49 Dose: 75 mg Cyanocobalamin (Cyanocobalamin (B-12) 500 Mcg Tablet) [facility] Stop: 09/13/22 15:14 Lactated Ringer's (Lr) 250 mls @ 999 mls/hr IV .Q16M ONE Stop: 08/14/22 15:32 Losartan Potassium (Losartan Potassium 25 Mg Tab) 25 mg PO QAM [facility] Stop: 09/12/22 08:59 Last Admin: 08/14/22 08:49 Dose: 25 mg
[2022-08-14] MEDS: CYANOCOBALAMIN (B-12) 500 MCG TABLET PO SCH (17:57)
[2022-08-14] MEDS ORDERED: MAGNESIUM HYDROXIDE SUSP 30 ML UDC PO ONE (19:57)
[2022-08-14] MEDS ORDERED: HEPARIN STOP ORDER ONE (20:30)
[2022-08-14] MEDS: APIXABAN 5 MG TABLET PO SCH (20:44)
[2022-08-15] MEDS ORDERED: MAGNESIUM HYDROXIDE SUSP 30 ML UDC PO PRN (07:37)
[2022-08-15 08:01] LABS: Basophils # (auto) 0.03 K/uL (0-0.2); Basophils % (auto) 0.5 %; Eosinophils # (auto) 0.19 K/uL (0-0.50); Eosinophils % (auto) 3.2 %; Hematocrit (blood only) 36.6 % (40.1-51.0); Hemoglobin 12.5 g/dl (14.0-18.0); Immature Granulocytes # (auto) 0.01 K/uL (0.00-0.02); Immature Granulocytes % (auto) 0.2 %; Lymphocytes # (auto) 1.44 K/uL (1.2-3.4); Lymphocytes % (auto) 24.3 %; Mean Corpuscular Hemoglobin 29.1 pg (25.0-34.0); Mean Corpuscular Hgb Conc 34.2 g/dL (32.0-36.0); Mean Corpuscular Volume 85.3 fL (80.0-100.0); Mean Platelet Volume 9.8 fL (9.4-12.4); Monocytes # (auto) 0.51 K/uL (0.24-0.82); Monocytes % (auto) 8.6 %; Neutrophils # (auto) 3.75 K/uL (1.4-6.5); Neutrophils % (auto) 63.2 %; Platelet Count 151 K/uL (130-400); RDW Coefficient of Variation 15.9 % (11.5-14.5); RDW Standard Deviation 49.1 fL (36.4-46.3); Red Blood Count 4.29 M/uL (4.63-6.08); White Blood Count 5.93 K/ul (4.8-10.8)
[2022-08-15 08:22] LABS: Partial Thromboplastin Time 27.7 Seconds (21.0-31.0)
[2022-08-15 08:34] LABS: Albumin Level 3.5 gm/dl (3.4-5.0); BUN Creatinine Ratio 18.6 (10-20); Bilirubin,Total 0.7 mg/dl (0.2-1.0); Calcium 9.4 mg/dl (8.5-10.1); Creatinine Clr Calc Pharmacy 79.8 ml/min; Est GFR (African American) 62.4 ml/min; Est GFR (Non-African American) 53.8 ml/min; Globulin 3.4 gm/dl (2.5-4.0); Magnesium 2.2 mg/dl (1.7-2.4); Phosphorus 3.5 mg/dl (2.5-4.9); Potassium 4.4 mmol/L (3.5-5.1); Total Protein 6.9 gm/dl (6.0-8.3)
[2022-08-15] MEDS: carvediloL 12.5 MG TAB PO SCH ×2 (08:39→20:02)
[2022-08-15] MEDS: ATORVASTATIN 40 MG TAB PO SCH (08:40)
[2022-08-15] MEDS: ASPIRIN 81 MG ECTAB PO SCH (08:40)
[2022-08-15] MEDS: APIXABAN 5 MG TABLET PO SCH ×2 (08:40→20:02)
[2022-08-15] MEDS: CLOPIDOGREL BISULFATE 75 MG TAB PO SCH (08:40)
[2022-08-15] MEDS: LOSARTAN POTASSIUM 25 MG TAB PO SCH (08:40)
[2022-08-15] MEDS: CYANOCOBALAMIN (B-12) 500 MCG TABLET PO SCH (08:40)
[2022-08-15] MEDS ORDERED: LACTATED RINGER'S 250 ML IV ONE (10:08)
--- NOTE | 2022-08-15 12:05 | Hospitalist Progress Note ---
Date of Service August 15, 2022 Assessment & Plan (1) Near syncope: Plan: - Likely secondary to orthostatic hypotension; seems less likely to be neurologic or intrinsically cardiac - Admitted to telemetry - could be multifactorial with medications (BP, diuretics) contributing - had PEDRO on admission that improved with IVF - positive orthostatic BP assessment by nursing - Will hold furosemide, reduce losartan to 25 mg daily - continue home dose of carvedilol for now - if dizziness persists, will lower dose - IVF cautiously - has had some improvement - Cardiology following (2) Pulmonary embolus: Plan: - Chronic bilateral PEs and DVTs - has had history of DVT and PEs - heme consulted - hypercoag work up initiated - s/p heparin drip - continue Apixaban 5mg BID - continue to monitor (3) CAD (coronary artery disease): Plan: - Patient reports some chest pressure with near syncopal events - Initial HS trop negative, EKG without acute ST changes. - No cardiac symptoms since admission - Cardiology service on board - continue on Plavix and Eliquis - continue BB and statin (4) Chronic diastolic CHF (congestive heart failure): Plan: - Seems to be hypovolemic with episodes of near syncope and hypotension - Cardiology following - holding diuretics for now - likely decrease dose after dizziness resolves - gentle IV hydration as needed for orthostatic hypotension - continue to monitor volume status (5) CKD (chronic kidney disease), stage III: Plan: - Recent baseline creatinine mid 1s - elevated Cr on admission that responded to IVF - will continue to monitor fluid status - diuretics on hold (6) DM type 2 (diabetes mellitus, type 2): Plan: - Hgb A1c 7.0 - Patient currently on diet control - FSG AC+HS - SSI while inpatient - diabetic diet Plan DVT ppx: apixaban Code Status: Full Code Dispo: telemetry Saad Lane MD [facility] Medicine Admission and Anticipated Discharge Date Admission Date: August 13, 2022 Subjective Patient with CAD s/p PCI (04/2022), HTN, obesity who presented with symptoms of pre-syncope and found to have orthostatic hypotension. Cardiology consulted, BP medication adjustments. Also with history of PE/DVTs started on heparin drip, transitioned to apixaban. Patient reports dizziness is improved with positional change but still mildly present.. Denies chest pain, palpitations, n/v/d, abdominal pain, dysuria, cough, shortness of breath. Review of Systems Review of Systems: all noted and negative except for above Physical Exam Physical Exam: General- oriented x 3, not in distress, speaks in sentences with no effort or accessory muscle use Eyes- anicteric Neck- no JVD Lungs- clear breath sounds bilaterally, no rales/wheezes Heart- normal rate, regular rhythm; no murmurs Abdomen- normal bowel sounds, nondistended, soft, nontender Extremities- no pretibial edema, no calf tenderness Neuro- alert, oriented x 3; no gross focal neurologic deficits Skin- warm & dry Results & Data Results & Data ([facility]) Vital Signs (Past 12 Hours) Vital Signs Temp Pulse Pulse Pulse Pulse Pulse Resp 08/15/22 11:38 81 86 74 08/15/22 11:13 36.7 C 75 20 08/15/22 07:19 36.7 C 77 20 08/15/22 03:47 36.6 C 75 18 08/15/22 00:28 68 Resp Resp Resp BP BP Pulse Ox Pulse Ox 08/15/22 11:38 20 16 16 96 08/15/22 11:13 126/73 96 08/15/22 07:19 159/90 H 94 08/15/22 03:47 147/82 H 95 08/15/22 00:28 Pulse Ox Pulse Ox O2 Del Method 08/15/22 11:38 98 97 08/15/22 11:13 Room Air 08/15/22 07:19 Room Air 08/15/22 03:47 Room Air 08/15/22 00:28 Diagnostic Findings Laboratory Results WBC 5.93 K/ul (4.8-10.8) 08/15/22 07:32 RBC 4.29 M/uL (4.63-6.08) L 08/15/22 07:32 Hgb 12.5 g/dl (14.0-18.0) L 08/15/22 07:32 Hct 36.6 % (40.1-51.0) L 08/15/22 07:32 MCV 85.3 fL (80.0-100.0) 08/15/22 07:32 MCH 29.1 pg (25.0-34.0) 08/15/22 07:32 MCHC 34.2 g/dL (32.0-36.0) 08/15/22 07:32 RDW Std Deviation 49.1 fL (36.4-46.3) H 08/15/22 07:32 RDW Coeff of Golden 15.9 % (11.5-14.5) H 08/15/22 07:32 Plt Count 151 K/uL (130-400) 08/15/22 07:32 MPV 9.8 fL (9.4-12.4) 08/15/22 07:32 Immature Gran % (Auto) 0.2 % 08/15/22 07:32 Neut % (Auto) 63.2 % 08/15/22 07:32 Lymph % (Auto) 24.3 % 08/15/22 07:32 [place] % (Auto) 8.6 % 08/15/22 07:32 Eos % (Auto) 3.2 % 08/15/22 07:32 Baso % (Auto) 0.5 % 08/15/22 07:32 Neut # (Auto) 3.75 K/uL (1.4-6.5) 08/15/22 07:32 Lymph # (Auto) 1.44 K/uL (1.2-3.4) 08/15/22 07:32 [place] # (Auto) 0.51 K/uL (0.24-0.82) 08/15/22 07:32 Eos # (Auto) 0.19 K/uL (0-0.50) 08/15/22 07:32 Baso # (Auto) 0.03 K/uL (0-0.2) 08/15/22 07:32 Immature Gran # (Auto) 0.01 K/uL (0.00-0.02) 08/15/22 07:32 Absolute Nucleated RBC Cancelled 08/13/22 07:46 Nucleated RBC % (auto) Cancelled 08/13/22 07:46 Neutrophils % (Manual) Cancelled 08/13/22 07:46 Band Neutrophils % Cancelled 08/13/22 07:46 Lymphocytes % (Manual) Cancelled 08/13/22 07:46 Prolymphocyte % Cancelled 08/13/22 07:46 Reactive Lymphs % (Man) Cancelled 08/13/22 07:46 Monocytes % (Manual) Cancelled 08/13/22 07:46 Eosinophils % (Manual) Cancelled 08/13/22 07:46 Basophils % (Manual) Cancelled 08/13/22 07:46 Metamyelocytes % (Man) Cancelled 08/13/22 07:46 Myelocytes % (Man) Cancelled 08/13/22 07:46 Promyelocytes % (Man) Cancelled 08/13/22 07:46 Blast Cells % (Manual) Cancelled 08/13/22 07:46 Plasma Cell % (Manual) Cancelled 08/13/22 07:46 Other Cells % Cancelled 08/13/22 07:46 Nucleated RBC % Cancelled 08/13/22 07:46 Neutrophils # (Manual) Cancelled 08/13/22 07:46 Band Neutrophils # Cancelled 08/13/22 07:46 Total Absolute Neuts Cancelled 08/13/22 07:46 Lymphocytes # (Manual) Cancelled 08/13/22 07:46 Prolymphocyte # Cancelled 08/13/22 07:46 Reactive Lymphs # Cancelled 08/13/22 07:46 Total Abs Lymphocytes Cancelled 08/13/22 07:46 Monocytes # (Manual) Cancelled 08/13/22 07:46 Eosinophils # (Manual) Cancelled 08/13/22 07:46 Basophils # (Manual) Cancelled 08/13/22 07:46 Metamyelocytes # (Man) Cancelled 08/13/22 07:46 Myelocytes # (Manual) Cancelled 08/13/22 07:46 Promyelocytes # (Man) Cancelled 08/13/22 07:46 Blast Cells # (Man) Cancelled 08/13/22 07:46 Plasma Cell # (Manual) Cancelled 08/13/22 07:46 Other Cells # Cancelled 08/13/22 07:46 Nucleated RBCs # (Man) Cancelled 08/13/22 07:46 Hypersegmented Neuts Cancelled 08/13/22 07:46 Hyposegmented Neuts Cancelled 08/13/22 07:46 Hypogranular Neuts Cancelled 08/13/22 07:46 Large Granular Lymphs Cancelled 08/13/22 07:46 # Lrg Granular Lymphs Cancelled 08/13/22 07:46 Hairy Cells Cancelled 08/13/22 07:46 Smudge Cells Cancelled 08/13/22 07:46 Toxic Granulation Cancelled 08/13/22 07:46 Toxic Vacuolation Cancelled 08/13/22 07:46 Dohle Bodies Cancelled 08/13/22 07:46 Angy Rods Cancelled 08/13/22 07:46 Platelet Estimate Cancelled 08/13/22 07:46 Platelet Estimate Normal (Normal) 08/13/22 07:46 Hypogranular Platelets Cancelled 08/13/22 07:46 Clumped Platelets Cancelled 08/13/22 07:46 Giant Platelets Cancelled 08/13/22 07:46 Platelet Satelliting Cancelled 08/13/22 07:46 RBC Morphology Cancelled 08/13/22 07:46 Polychromasia Cancelled 08/13/22 07:46 Hypochromasia Cancelled 08/13/22 07:46 Poikilocytosis Cancelled 08/13/22 07:46 Basophilic Stippling Cancelled 08/13/22 07:46 Anisocytosis Cancelled 08/13/22 07:46 Microcytosis Cancelled 08/13/22 07:46 Macrocytosis Cancelled 08/13/22 07:46 Spherocytes Cancelled 08/13/22 07:46 Pappenheimer Bodies Cancelled 08/13/22 07:46 Sickle Cells Cancelled 08/13/22 07:46 Target Cells Cancelled 08/13/22 07:46 Tear Drop Cells Cancelled 08/13/22 07:46 Ovalocytes 1+ 08/14/22 05:49 Stomatocytes Cancelled 08/13/22 07:46 [place] Bodies Cancelled 08/13/22 07:46 Echinocytes Cancelled 08/13/22 07:46 Acanthocytes (Spur) Cancelled 08/13/22 07:46 Rouleaux Cancelled 08/13/22 07:46 RBC Agglutinates Cancelled 08/13/22 07:46 Schistocytes Cancelled 08/13/22 07:46 Sezary Cell Cancelled 08/13/22 07:46 PT 11.4 Seconds (9.0-12.0) 08/12/22 14:25 INR 1.1 (0.9-1.1) 08/12/22 14:25 APTT 27.7 Seconds (21.0-31.0) 08/15/22 07:32 PTT Ratio 1.0 08/15/22 07:32 Sodium 139 mmol/L (136-145) 08/15/22 07:32 Potassium 4.4 mmol/L (3.5-5.1) 08/15/22 07:32 Chloride 104 mmol/L (98-107) 08/15/22 07:32 Carbon Dioxide 32 mmol/L (21-32) 08/15/22 07:32 Anion Gap 3 (3-11) 08/15/22 07:32 BUN 26 mg/dl (6-23) H 08/15/22 07:32 Creatinine 1.40 mg/dl (0.6-1.4) 08/15/22 07:32 Est Cr Clr Drug Dosing 79.8 ml/min 08/15/22 07:32 Est GFR ( Amer) 62.4 ml/min 08/15/22 07:32 Est GFR (Non-Af Amer) 53.8 ml/min 08/15/22 07:32 BUN/Creatinine Ratio 18.6 (10-20) 08/15/22 07:32 Glucose 95 mg/dl (70-99(Fasting)) 08/15/22 07:32 POC Glucose 151 mg/dl (70-99) H 08/14/22 20:04 Calcium 9.4 mg/dl (8.5-10.1) 08/15/22 07:32 Phosphorus 3.5 mg/dl (2.5-4.9) 08/15/22 07:32 Magnesium 2.2 mg/dl (1.7-2.4) 08/15/22 07:32 Total Bilirubin 0.7 mg/dl (0.2-1.0) 08/15/22 07:32 AST 16 U/L (13-39) 08/15/22 07:32 ALT 18 U/L (7-52) 08/15/22 07:32 Alkaline Phosphatase 55 U/L (34-104) 08/15/22 07:32 Troponin I High Sens 14.1 pg/ml (0-20) 08/13/22 07:46 Total Protein 6.9 gm/dl (6.0-8.3) 08/15/22 07:32 Albumin 3.5 gm/dl (3.4-5.0) 08/15/22 07:32 Globulin 3.4 gm/dl (2.5-4.0) 08/15/22 07:32 Albumin/Globulin Ratio 1.0 (0.9-2) 08/15/22 07:32 Lipase 12 U/L (11-82) 08/12/22 14:25 Prostate Specific Ag 0.327 ng/ml (0-4) 08/14/22 05:49 Vitamin B12 381 pg/ml (180-914) 08/14/22 05:49 Folate > 22.30 ng/ml (>5.38) 08/14/22 05:49 SARS-CoV-2, RNA, NAAT NEGATIVE (NEGATIVE) 08/12/22 18:09 Blood Parasites ID Cancelled 08/13/22 07:46 Impressions Chest X-Ray 08/12/22 14:23 XR chest 1V portable CLINICAL HISTORY: Atypical chest pain. COMPARISON STUDY: Chest radiograph and chest CT May 28, 2022. FINDINGS: There is no pneumothorax. Small left and trace right pleural fusions have decreased since prior chest radiograph and chest CT. Left basilar opacity is noted. Cardiomegaly is unchanged. There is pulmonary vascular congestion without overt pulmonary edema. IMPRESSION: 1. Small left and trace right pleural effusions, decreased since prior exam. Left basilar opacity which favors atelectasis although pneumonia could appear similar. 2. Cardiomegaly. Pulmonary vascular congestion without overt pulmonary edema. ACT 112: Negative or not required by law. Electronically signed by: Darren Francis M.D. 08/12/2022 2:45 PM Chest CTA 08/12/22 14:49 CT ANGIOGRAM OF THE CHEST CLINICAL HISTORY: Dyspnea. COMPARISON STUDY: Chest x-ray dated 08/12/2022. Chest CT dated 05/28/2022. TECHNIQUE: Following the IV administration of 111 cc of Optiray 320, CT angiogram of the chest was performed from the upper abdomen to the thoracic inlet utilizing the pulmonary embolus protocol. Images are reviewed in the axial, sagittal, and coronal planes. 3-D MIPS images are created and assessed. IV contrast was administered without complication. A dose lowering technique was utilized adhering to the principles of ALARA. CT DOSE: 927.85 mGy.cm FINDINGS: Thyroid: Imaged portions of the thyroid gland are normal in size and attenuation. Thoracic aorta: The thoracic aorta is normal in caliber and demonstrates standard 3-vessel arch anatomy. No dissection is seen. Pulmonary vasculature: The pulmonary trunk is normal in caliber. There are no filling defects identified in main, lobar, or segmental pulmonary branches typical for acute pulmonary embolus. There is trace chronic pulmonary embolus within the left lower lobe pulmonary artery seen on image #165 and within the right lower lobe pulmonary artery on image #127. Heart: The heart is enlarged and without pericardial effusion. The coronary arteries are densely calcified. Lungs and pleural spaces: There are small to moderate pleural effusions, left larger than right with dependent consolidation. Secretions are noted in the trachea. A calcified granuloma seen at the left apex. Mediastinum: There is no mediastinal lymphadenopathy. Rochelle: Clear. Axillae: There is no axillary lymphadenopathy. Upper abdomen: There is a small hiatal hernia. Partially visualized upper abdominal viscera is otherwise within normal limits. Skeletal structures: The skeletal structures are osteopenic. Degenerative change is noted throughout the thoracic spine with evidence of DISH. Arthritic change is noted in the shoulders. No lytic or blastic bony lesions are seen. IMPRESSION: 1. There is no evidence of acute pulmonary embolus in the main, lobar, or segmental pulmonary arteries. 2. Trace chronic pulmonary embolus is seen within both lower lobe pulmonary arteries. 3. There are [id number] pleural effusions, left larger than right with associated bibasilar consolidation. This likely represents atelectasis and clinical correlation will be required. The effusions have somewhat decreased in size as compared to 05/28/2022. 4. Cardiomegaly with advanced coronary artery calcification. 5. Additional findings as above. ACT 112: Negative or not required by law. Electronically signed by: Christopher Dodson M.D. 08/12/2022 4:38 PM Venous Doppler Study 08/12/22 22:02 ULTRASOUND BILATERAL LOWER EXTREMITY VENOUS CLINICAL HISTORY: Chronic pulmonary embolus COMPARISON STUDY: Bilateral lower extremity venous ultrasound dated 09/15/2008. TECHNIQUE: Real-time, grayscale, and color Doppler sonography of the deep veins of the right and left lower extremity was performed from the inguinal crease to the calf. Compression and augmentation were utilized. FINDINGS: Right lower extremity: There is age indeterminate nonocclusive deep venous thrombosis seen throughout the right superficial femoral vein and within the popliteal vein. There is also age indeterminant deep venous thrombosis seen in the right calf and the posterior tibial and peroneal veins. 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 The common femoral vein is patent and normally compressible. The greater saphenous vein and the profunda femoris vein at the junction with the common femoral vein are clear. Left lower extremity: Age-indeterminate nonocclusive deep venous thrombosis is seen within the popliteal vein. There is also age indeterminant deep venous thrombosis within the calf and the posterior tibial and peroneal veins. The common femoral and superficial femoral veins are patent and normally compressible. The greater saphenous vein and the profunda femoris vein at the junction with the common femoral vein are clear. IMPRESSION: Age indeterminant deep venous thrombosis is seen in both legs as above. ACT 112: Negative or not required by law. Electronically signed by: Christopher Dodson M.D. 08/13/2022 9:40 AM Medications Administered Current Inpatient Medications Acetaminophen (Acetaminophen 325 Mg Tab) 650 mg PO Q4H PRN PRN Reason: Pain or Fever Stop: 09/11/22 22:00 Apixaban (Apixaban 5 Mg Tablet) 5 mg PO BID [facility] Stop: 09/13/22 20:59 Last Admin: 08/15/22 08:40 Dose: 5 mg Aspirin (Aspirin 81 Mg Ectab) 81 mg PO DAILY [facility] Stop: 09/12/22 08:59 Last Admin: 08/15/22 08:40 Dose: 81 mg Atorvastatin Calcium (Atorvastatin 40 Mg Tab) 40 mg PO DAILY [facility] Stop: 09/12/22 08:59 Last Admin: 08/15/22 08:40 Dose: 40 mg Carvedilol (Carvedilol 12.5 Mg Tab) 12.5 mg PO BID [facility] Stop: 09/11/22 22:00 Last Admin: 08/15/22 08:39 Dose: 12.5 mg Clopidogrel Bisulfate (Clopidogrel Bisulfate 75 Mg Tab) 75 mg PO QAM [facility] Stop: 09/12/22 08:59 Last Admin: 08/15/22 08:40 Dose: 75 mg Cyanocobalamin (Cyanocobalamin (B-12) 500 Mcg Tablet) 500 mcg PO QAM [facility] Stop: 09/13/22 15:14 Last Admin: 08/15/22 08:40 Dose: 500 mcg Losartan Potassium (Losartan Potassium 25 Mg Tab) 25 mg PO QAM [facility] Stop: 09/12/22 08:59 Last Admin: 08/15/22 08:40 Dose: 25 mg Magnesium Hydroxide (Magnesium Hydroxide Susp 30 Ml Udc) 30 ml PO Q6H PRN PRN Reason: constipation Stop: 09/14/22 07:36
--- NOTE | 2022-08-15 12:33 | Cardiology Progress Note ---
Date of Service August 15, 2022 Assessment & Plan (1) Near syncope: (2) Acute kidney injury: (3) Dehydration: (4) CAD (coronary artery disease): (5) Labile hypertension: (6) Pulmonary embolus: Plan Patient admitted after several syncopal/near syncope spells with reproducible hy potension and orthostatic vital signs in the outpatient cardio office. PEDRO noted on arrival. Improved with IV fluids. Continued to have intermittent symptomatic orthostatic hypotension upon sitting to standing. Symptoms improved with additional IV hydration. Continue lower dose losartan 25 mg and carvedilol 12.5 mg BID. Diuretics will remain on hold Compression stockings advised. Recommend PT evaluation and treatment this afternoon. If he does well with ambulation and without recurrent symptomatic orthostasis, likely discharge later today. Patient is also concerned with oxygen levels at home with ambulation, sometimes falling in the 80's. 2 step ordered to r/o exertional hypoxia. This may also have been caused by pulmonary embolus. Found to have PE and b/l DVT on chest CTA and venous duplex. Remote history of PE in 2009. Chest CTA was negative in May 2022. Transitioned form IV heparin to Eliquis last evening. Stop ASA, but continue plavix. Patient is s/p CHUCKY t the left circumflex in May 2022. Hematology also consulted by hospitalist. Hypercoagulable workup is pending Case discussed with Dr. Sims. Admission and Anticipated Discharge Date Admission Date: August 13, 2022 Supervising Physician Co-Signing Physician Notes Patient seen and examined personally. Overall clinically improving. Patient notes somewhat brisk urinary output overnight despite lack of diuretics reflecting improving hemodynamics and renal function If patient ambulatory in hallway can be discharged home later today Anticoagulation as ordered Subjective Patient reports dizziness has improved over the last 12 hours. [place] well last night and this morning without significant symptoms. He would like to ambulate in the hallways today and verify stability and no recurrent issues. No chest pain or dyspnea. tolerating Eliquis. Review of Systems Review of Systems: All systems reviewed & are unremarkable except as noted in HPI & below Physical Exam Constitutional: WD/WN, vitals as above + obese; no acute distress Respiratory: normal respiratory effort, lungs clear to auscultation Cardiovascular: Rate/Rhythm: regular rate and regular rhythm Heart Sounds: no murmur Vessels: no JVD Extremities: + edema (trace edema b/l. compression stockings in place) Gastrointestinal (Abdomen): normal bowel sounds, soft, nontender, no hepatosplenomegaly Musculoskeletal: no cyanosis or clubbing, extremities motor strength 5/5 Skin: no rashes, warm and dry Neurologic: PERRL, EOMI, accommodation nl, no face palsy, no dysarthria Psychiatric: A+Ox3, euthymic affect Results & Data ([facility]) Vital Signs (Past 12 Hours) Vital Signs Temp Pulse Pulse Pulse Pulse Pulse Resp 08/15/22 11:38 81 86 74 08/15/22 11:13 36.7 C 75 20 08/15/22 07:19 36.7 C 77 20 08/15/22 03:47 36.6 C 75 18 08/15/22 00:28 68 Resp Resp Resp BP BP Pulse Ox Pulse Ox 08/15/22 11:38 20 16 16 96 08/15/22 11:13 126/73 96 08/15/22 07:19 159/90 H 94 08/15/22 03:47 147/82 H 95 08/15/22 00:28 Pulse Ox Pulse Ox O2 Del Method 08/15/22 11:38 98 97 08/15/22 11:13 Room Air 08/15/22 07:19 Room Air 08/15/22 03:47 Room Air 08/15/22 00:28 Laboratory Results Cardiac Enzymes 08/15/22 Range/Units 07:32 AST 16 (13-39) U/L Coagulation 08/15/22 Range/Units 07:32 APTT 27.7 (21.0-31.0) Seconds CBC 08/15/22 Range/Units 07:32 WBC 5.93 (4.8-10.8) K/ul RBC 4.29 L (4.63-6.08) M/uL Hgb 12.5 L (14.0-18.0) g/dl Hct 36.6 L (40.1-51.0) % Plt Count 151 (130-400) K/uL Neut # (Auto) 3.75 (1.4-6.5) K/uL Lymph # (Auto) 1.44 (1.2-3.4) K/uL [place] # (Auto) 0.51 (0.24-0.82) K/uL Eos # (Auto) 0.19 (0-0.50) K/uL Baso # (Auto) 0.03 (0-0.2) K/uL Comprehensive Metabolic Panel 08/15/22 Range/Units 07:32 Sodium 139 (136-145) mmol/L Potassium 4.4 (3.5-5.1) mmol/L Chloride 104 (98-107) mmol/L Carbon Dioxide 32 (21-32) mmol/L BUN 26 H (6-23) mg/dl Creatinine 1.40 (0.6-1.4) mg/dl Glucose 95 (70-99(Fasting)) mg/dl Calcium 9.4 (8.5-10.1) mg/dl AST 16 (13-39) U/L ALT 18 (7-52) U/L Alkaline Phosphatase 55 (34-104) U/L Total Protein 6.9 (6.0-8.3) gm/dl Albumin 3.5 (3.4-5.0) gm/dl Intake and Output 08/14/22 08/15/22 08/15/22 22:59 06:59 14:59 Intake Total 1477 / 2120 275 / 2120 250 / 250 Output Total 1100 / 2550 1250 / 2550 1100 / 1100 Balance 377 / -430 -975 / -430 -850 / -850 Intake: IV 642 / 1010 250 / 250 Heparin Sodium/Dextrose 25,000 392 / 760 units In 500 ml @ 1,500 UNITS/ HR 30 mls/hr IV .[id number] [facility] Rx #:[id number] Lactated Ringer's 250 ml @ 999 250 / 250 250 / 250 mls/hr IV .Q16M ONE Rx#: [id number] Oral 835 / 1110 275 / 1110 Output: Urine 1100 / 2550 1250 / 2550 1100 / 1100 Other: Weight 138.1 kg Weight Measurement Method Built in [facility] Diagnostic Findings Telemetry reviewed NSR in the 70-90 bpm range. No arrhythmias Medications Administered Current Inpatient Medications Acetaminophen (Acetaminophen 325 Mg Tab) 650 mg PO Q4H PRN PRN Reason: Pain or Fever Stop: 09/11/22 22:00 Apixaban (Apixaban 5 Mg Tablet) 5 mg PO BID [facility] Stop: 09/13/22 20:59 Last Admin: 08/15/22 08:40 Dose: 5 mg Aspirin (Aspirin 81 Mg Ectab) 81 mg PO DAILY [facility] Stop: 09/12/22 08:59 Last Admin: 08/15/22 08:40 Dose: 81 mg Atorvastatin Calcium (Atorvastatin 40 Mg Tab) 40 mg PO DAILY [facility] Stop: 09/12/22 08:59 Last Admin: 08/15/22 08:40 Dose: 40 mg Carvedilol (Carvedilol 12.5 Mg Tab) 12.5 mg PO BID [facility] Stop: 09/11/22 22:00 Last Admin: 08/15/22 08:39 Dose: 12.5 mg Clopidogrel Bisulfate (Clopidogrel Bisulfate 75 Mg Tab) [facility] Stop: 09/12/22 08:59 Last Admin: 08/15/22 08:40 Dose: 75 mg Cyanocobalamin (Cyanocobalamin (B-12) 500 Mcg Tablet) 500 [facility] [place] Stop: 09/13/22 15:14 Last Admin: 08/15/22 08:40 Dose: 500 mcg Losartan Potassium (Losartan Potassium 25 Mg Tab) [facility] [place] Stop: 09/12/22 08:59 Last Admin: 08/15/22 08:40 Dose: 25 mg Magnesium Hydroxide (Magnesium Hydroxide Susp 30 Ml Udc) 30 ml PO Q6H PRN PRN Reason: constipation Stop: 09/14/22 07:36
--- NOTE | 2022-08-16 07:11 | Hospitalist Progress Note ---
Date of Service August 16, 2022 Assessment & Plan (1) Pulmonary embolus: Plan: In further review review with radiology, the changes in CT scan were probably present in May and in fact correlate with the 2008 areas of pulmonary embolism. While they cannot say definitively, they cannot completely exclude that these "trace chronic" findings may be long-term residua of that original event. Further, their only "trace" presence would not seem to explain the recent episodes of desaturation but with the apparent resolution of that and hopefully optimized fluid balance, we seem to be beyond that issue. Without previous duplex studies, we cannot even start to determine if we think the DVT is more recent or more historical. Overall we certainly cannot delineate the precise interval history wrt VTE events and have to assume that there has been more than 1 episode in making treatment recommendations. Thus so long as there are no contraindications, will probably recommend indefinite anticoagulation though I will reconvene with the patient in September to more formally make long-term recommendations. The "hypercoagulable" work-up is still pending but does not impact upon our immediate management. Those results could potentially be part of the longer-ter m conversation of duration of anticoagulation. I did add lupus anticoagulant and anticardiolipin antibody screens both to round out the understanding of what his baseline risk may be and to inform any conversations about the choice of long-term agents. He is doing well on the apixaban and so long as there is no significant threat for acute injury from syncopal fall, that is probably the easiest regimen going forward for now. Even if we were to find positive test(s) for antiphospholipid syndrome, DOACs are less efficacious than warfarin for the more catastrophic or severe APLS patients but are probably adequate in those with a "milder" forms. I discussed with the patient that while on anticoagulation he is particularly vulnerable to life-threatening bleeding with trauma. I have urged him to immediately sit down in place unless he is not in a safe place to do so with any suggestions of oncoming syncope rather than trying to cross the room to a chair or bed. I discussed that he should immediately notify a physician if there is any unusual bruising or bleeding though he may expect some mild increase in bruising and bleeding while on anticoagulation. I have also discussed that an ticoagulation does not completely prevent future new thrombosis episodes and he should also quickly seek medical help for any changes in chest discomfort, breathing, hemoptysis, leg swelling or discomfort. Plan * To be discharged as soon as cardiology and the hospitalist team feel he is appropriate for that We will plan on following up in our office in approximately 6 to 8 weeks Guidance for the patient while on anticoagulation as above Admission and Anticipated Discharge Date Admission Date: August 13, 2022 Subjective Feels much improved. Was able to walk in the halls yesterday with neither particular postural symptoms nor oxygen desaturation. Although he is occasionally mildly dizzy upon standing and still has some postural blood pressure changes, he does not seem to be having any "near miss" issues of syncop e or near syncope. He has no particular leg discomfort and anticipates discharge later today Physical Exam Physical Exam: Blood pressure 178/94, vital signs stable otherwise Lungs are clear and he is not tachypneic Legs are nontender Neurologic exam is completely intact Results & Data Results & Data ([facility]) Vital Signs (Past 12 Hours) Vital Signs Temp Pulse Pulse Resp BP BP Pulse Ox 08/16/22 03:33 36.6 C 70 15 178/94 H 95 08/15/22 23:01 36.4 C 77 15 166/89 H 94 08/15/22 22:56 71 O2 Del Method 08/16/22 03:33 Room Air 08/15/22 23:01 Room Air 08/15/22 22:56 PG Care Time/CCT Total # of Minutes Spent Total Time Spent with Patient: Total time spent is greater than 50% in coordination of care (as documented) at patient's floor/unit and/or counseling patient: Coding [place] [address] Subseq Hosp Care Lvl 1 Patient Type Established History Problem Focused Exam Problem Focused Medical Decision Making Moderate Complexity Diagnoses Pulmonary embolus I26.99
[2022-08-16] MEDS: LOSARTAN POTASSIUM 25 MG TAB PO SCH (08:11)
[2022-08-16] MEDS: ATORVASTATIN 40 MG TAB PO SCH (08:11)
[2022-08-16] MEDS: carvediloL 12.5 MG TAB PO SCH (08:11)
[2022-08-16] MEDS: CLOPIDOGREL BISULFATE 75 MG TAB PO SCH (08:11)
[2022-08-16] MEDS: APIXABAN 5 MG TABLET PO SCH (08:11)
[2022-08-16] MEDS: CYANOCOBALAMIN (B-12) 500 MCG TABLET PO SCH (08:12)
--- NOTE | 2022-08-16 11:50 | Discharge Summary ---
Date of Service August 16, 2022 Admission HPI Per Admitting Provider 61-year-old male with PMH CAD (s/p CHUCKY to left circumflex, 100% RCA occlusion 06/03/2022), chronic diastolic CHF, chronic hypoxic respiratory failure on 2 L of O2, HTN, DM type II, dyslipidemia, and other problems listed below who presents to the ED for evaluation of near syncope. Patient reports he initially felt well after his discharge from the hospital in May. However shortly after returning home, patient reports he developed episodes of lightheadedness, tunnel vision. Patient reports passing out briefly twice since that time. Episodes seem to occur about 1 to 2 hours after taking morning medications and with standing/exertion. Patient reports associated chest pressure. Patient was seen by cardiology 2 weeks ago and Lasix was reduced from 40 mg twice daily to 40 mg daily. Patient reports that improved his symptoms for a couple of days however they quickly returned. He states he monitors his blood pressure at home and prior to taking his BP medications, systolic blood pressure is usually in the 110s. After taking his medication, BPs sometimes drop to the 80s. Patient was seen in the cardiology clinic today for follow-up and had an episode of near syncope. Patient was then referred to the ED for further evaluation. Patient has had a few episodes of vomiting and mild abdominal pain during this time as well. This does not seem to correlate with his symptoms. Patient reports he co ntinues to lose weight from his hospitalization. Lower extremity edema also continues to improve. Patient denies fevers and chills. No urinary symptoms. In the ED, patient is hemodynamically stable. Initial HS troponin negative, EKG without acute ST changes. Admission Exam Per Admitting Provider Constitutional: WD/WN, vitals as above + obese Eyes: PERRL, conjunctivae normal, anicteric sclerae ENMT: external ear and nose normal, oropharynx normal Respiratory: normal respiratory effort, lungs clear to auscultation Cardiovascular: Rate/Rhythm: regular rate and regular rhythm Vessels: normal peripheral pulses Extremities: + edema (+1 edema BLE) Gastrointestinal (Abdomen): normal bowel sounds, soft, nontender, no hepato splenomegaly Musculoskeletal: no cyanosis or clubbing, extremities motor strength 5/5 Skin: no rashes, warm and dry Neurologic: PERRL, EOMI, accommodation nl, no face palsy, no dysarthria Psychiatric: A+Ox3, euthymic affect Principal Diagnosis orthostatic hypotension from diuretic and dehydration Discharge Exam General- oriented x 3, not in distress, speaks in sentences with no effort or accessory muscle use Eyes- anicteric Neck- no JVD Lungs- clear breath sounds bilaterally, no rales/wheezes Heart- normal rate, regular rhythm; no murmurs Abdomen- normal bowel sounds, nondistended, soft, nontender Extremities- no pretibial edema, no calf tenderness Neuro- alert, oriented x 3; no gross focal neurologic deficits Skin- warm & dry Discharge Data Allergies Allergy/AdvReac Type Severity Reaction Status Date / Time smallpox vaccine,live Allergy Severe edema Verified 08/12/22 17:12 Consultations 08/12/22 17:42 ED Decision to Admit Stat 08/12/22 22:01 Consult Cardiology Routine 08/13/22 10:15 Consult Hematology Routine Ordered Studies 08/12/22 14:49 CT angio chest PE protocol Stat 08/12/22 22:02 US venous doppler [facility] Urgent Hospital Course (1) Near syncope: - Likely secondary to orthostatic hypotension; seems less likely to be neurologic or intrinsically cardiac - Admitted to telemetry - could be multifactorial with medications (BP, diuretics) contributing - had PEDRO on admission that improved with IVF - positive orthostatic BP assessment by nursing - Will hold furosemide, reduce losartan to 25 mg daily - continue home dose of carvedilol for now - if dizziness persists, will lower dose - diuretics held, gentle IV hydration - symptoms resolved - walked with respiratory therapy, no oxygen needed for discharge - Cardiology following - ok for discharge with holding diuretics and follow up (2) Pulmonary embolus: - Chronic bilateral PEs and DVTs - has had history of DVT and PEs - heme consulted - hypercoag work up initiated - s/p heparin drip - continue Apixaban 5mg BID - has follow up with hematology for further management and discussion on duration and AC choice - continue to monitor (3) CAD (coronary artery disease): - Patient reports some chest pressure with near syncopal events - Initial HS trop negative, EKG without acute ST changes. - No cardiac symptoms since admission - Cardiology service on board - continue on Plavix and Eliquis - Aspirin discontinued - continue BB and statin (4) Chronic diastolic CHF (congestive heart failure): - Seems to be hypovolemic with episodes of near syncope and hypotension - Cardiology following - holding diuretics for now - likely decrease dose after dizziness resolves - resolved - continue holding diuretics on discharge until [facility] follow up - continue to monitor volume status (5) CKD (chronic kidney disease), stage III: - Recent baseline creatinine mid 1s - Cr baseline - diuretics on hold (6) DM type 2 (diabetes mellitus, type 2): - Hgb A1c 7.0 - Patient currently on diet control - FSG AC+HS - SSI while inpatient - diabetic diet Plan DVT ppx: apixaban Code Status: Full Code Dispo: telemetry Saad Lane MD [facility] Medicine Total Time Total Time Spent Total Time Spent (In Minutes): 26 Total Time Includes: Examination of the Patient, Discharge Planning, Medication Reconciliation and Communication With Other Providers Discharge Plan Discharge Items Patient Disposition: Home - Self-Care Reason For Visit: NEAR SYNCOPE Discharge Diagnosis: orthostatic hypotension Activity: Resume your previous activity Non-emergency contact: Primary Care Provider and [employer]etitive Ath[employer] Call non-emergency contact if: you have any medication questions and your symptoms worsen Follow-up/Referrals: Nagi Sims MD [Physician] - Mauro Hurst MD [Primary Care Provider] - (Date & Time 08/21/2022 3:00 PM Provider Mauro Hurst MD [facility] Please note that your previously scheduled appt on 08/20 @ 3PM has been cancelled.) Diet: Carb Consistent or DM2 and Heart Healthy Addtl Attending Provider Instructions: You were admitted for near fainting episodes over the last couple of months. You were thought to be dehydrated and maybe on too much Blood pressure medications. You were seen by Cardiology and they held your water pills (diuretics) and reduced your losartan to 25mg daily. You also received IV fluids with improve ment in your symptoms. You were seen by respiratory therapy who walked you to assess your need for oxygen with activity and you did well, not needing any oxygen at home with activity. Your symptoms improved and were ok for discharge with continued holding of your water pill (Lasix) until you can follow up with Cardiology. you should also follow up with your primary care doctor after discharge. You should continue taking Eliquis 5mg 2x/day until you follow up with the [facility] for further management of your anticoagulation medication (Eliquis). Because you were started on Eliquis, you should STOP aspirin 81mg. Please continue taking Plavix 75mg. Pending Studies at Discharge: Yes Studies:: Hypercoagulable work up. Stand-Alone Forms: My [facility], Smoking Cessation Medications and DC Order Prescriptions: New Eliquis 5 mg Tablet 5 mg PO BID Qty: 60 0RF cyanocobalamin (vitamin B-12) 500 mcg Tablet 250 mcg PO QAM Qty: 30 0RF magnesium hydroxide [Milk of Magnesia] 400 mg/5 mL Suspension 30 ml PO Q6H PRN (Reason: constipation) Qty: 355 0RF Continued multivitamin Tablet 1 tab PO DAILY ascorbic acid (vitamin C) [Vitamin C] 500 mg Tablet 500 mg PO DAILY clopidogrel 75 mg Tablet 75 mg PO QAM Qty: 30 0RF carvedilol 12.5 mg Tablet 12.5 mg PO BID Qty: 60 0RF losartan 50 mg Tablet 50 mg PO QAM Qty: 30 0RF (DME) Oxygen Home Liters Per Minute See Rx Instructions .Route Qty: 1 0RF Rx Instructions: As directed atorvastatin 40 mg Tablet 40 mg PO DAILY Discontinued aspirin 81 mg Tablet,Chewable 81 mg PO DAILY furosemide 40 mg tablet 40 mg PO QAM Rx Instructions: may take an additional tablet as needed for fluid retention and weight gain Discharge Orders: Discharge Order (Routine); Ordered 08/16/22 Ordered By: Saad Lane Admission Data Admit Date/Time: 08/13/22 16:10 Attending Provider: Saad Lane Admit Provider: Mary Redman Primary Care Provider: Mauro Hurst Other Providers: Mary Redman ; Nagi Sims ; Robin Rose
[2022-08-16 22:52] LABS: Protein S Functional(Activity) 61 % normal (70-150)
[2022-08-21 22:32] LABS: Anti Cardiolipin Ab IgG <2.0 GPL-U/mL; Anti Cardiolipin Ab IgM <2.0 MPL-U/mL
[2022-08-23 01:12] LABS: Factor 5 Mutation NEGATIVE
== END 2022-08-16 13:23 | disposition home or self-care (01) | DRG 312 ==
LOC: ED 14:12 → 4W 14:12 → SUATTDRO 17:58 → 4W 21:06 → SUATTDRO 08-13 16:10